=== PATIENT | male | born 1945 | race Caucasian/White ===

== ENCOUNTER 2017-06-24 06:00 | Outpatient (RCR) | payer MEDICARE, BC ==
[2017-02-18 08:45] VITALS: Ht 177.8 cm; Wt 80.7 kg
[~2017-06-24] VITALS: Ht 177.8 cm; Wt 80.7 kg
[~2017-06-24 06:00] MED LIST: ALBU8.5H IH; ALPR-1 PO; ANTI1CAP2 PO; ASP81; ASPI-1121 PO; B12 IM; CEFU250T11 PO; CEPH250C37 PO; CETI-169 PO; CHO4 PO; CHOL200021 PO; CHOL200074 PO; CHOL500026; CLO75; CLO75 PO; CLOP75TA PO; CYAN1000 IJ; CYC10 PO; DARB10SY IM; DIC10; DIC10 PO; DICY20TA70 PO; DILT120C18 PO; FAMO20TA28 PO; FERR-53 PO; FERR159T PO; FERR28TA2 PO; FURO40TA35 PO; FURO80TA70 PO; GUAI120L3 PO; HYDR-385 PO; HYDR-4309 PO; HYDR10TA20 PO; HYDR50TA35 PO; IBUP-1671 PO; INSU100I30 SUBQ; ISOS30TA54 PO; L-thyroxine; LANI SUBQ; LEVO-85 PO; LEVO25TA61 PO; LEVO750T27 PO; LOR10 PO; LOR5/325 PO; METANXPT; METANXPT PO; METH1TAB PO; MU-V1TAB29 PO; NIFE30TA92 PO; NOR5/325 PO; PEN400; PEN400 PO; PENT400T57 PO; PHEN200T32 PO; PRAV20TA66 PO; RAMI10CA72 PO; SIM10; SIM10 PO; SODI650T7 PO; TAMS0.4C25 PO; VALS160T20; VALS1TAB96 PO; VIT-7 PO; [UNRECOGNIZED DRUG - CODE]; [UNRECOGNIZED DRUG - CODE]; [UNRECOGNIZED DRUG - CODE] PO; [UNRECOGNIZED DRUG - CODE] PO
[2017-06-24] MEDS: DARBEPOETIN 100 MCG/0.5 ML SUBQ PRN (09:43)
[2017-06-24 09:44] VITALS: BP 159/63
[2017-07-09] MEDS ORDERED: MESA250C2 PO (10:41)
[2017-07-09] MEDS ORDERED: [UNRECOGNIZED DRUG - CODE] PO (10:41)
[2017-07-09] MEDS ORDERED: CAL25 PO (10:41)
[2017-07-09] MEDS ORDERED: FOLI-68 PO (10:41)
[2017-08-08] MEDS ORDERED: LANI SUBQ ×2 (05:35)
[2017-08-08] MEDS ORDERED: ONDA4TAB PO (06:40)
[2017-08-26] MEDS: DARBEPOETIN 100 MCG/0.5 ML SUBQ PRN (09:06)
[2017-08-26 09:07] VITALS: BP 138/54
[2017-09-11] MEDS ORDERED: INSU100V24 SQ (20:48)
[2017-09-16 08:38] VITALS: BP 146/94
[2017-09-16] MEDS: DARBEPOETIN 100 MCG/0.5 ML SUBQ PRN (08:45)
[2017-10-08] MEDS ORDERED: MULT1CAP59 PO (04:10)
[2017-10-08] MEDS ORDERED: FLUT16SP19 NS (04:10)
[2017-10-09] MEDS ORDERED: INSU100V24 SQ (08:40)
[2017-10-12] MEDS ORDERED: AZIT-18 PO (21:01)
[2017-10-12] MEDS ORDERED: ALBU8.5H IH (21:01)
[2017-10-12] MEDS ORDERED: PROM-110 PO (22:32)
[2017-10-12] MEDS ORDERED: OSE75 FT (22:32)
[2017-10-12] MEDS ORDERED: OXYC-865 PO (22:32)
[2017-10-21] MEDS: DARBEPOETIN 100 MCG/0.5 ML SUBQ PRN (08:24)
[2017-10-21 08:25] VITALS: BP 112/75
[2017-11-18] MEDS: DARBEPOETIN 100 MCG/0.5 ML SUBQ PRN (08:41)
[2017-11-18 08:42] VITALS: BP 150/63
[2017-12-23 08:00] VITALS: BP 149/61
[2017-12-23] MEDS: DARBEPOETIN 100 MCG/0.5 ML SUBQ PRN (08:00)
[2018-01-17] MEDS ORDERED: PENTA500PT PO (09:14)
[2018-01-25 09:26] VITALS: BP 148/63
[2018-01-25] MEDS: DARBEPOETIN 100 MCG/0.5 ML SUBQ PRN ×2 (09:34→09:37)
== END 2018-02-11 08:00 | disposition home or self-care (01) ==
LOC: DIAL CLIN 06:00
PROVIDERS: ATTEND Internal Medicine Nephrology
DX: I12.0 Hypertensive chronic kidney disease with stage 5 chronic kidney disease or end stage renal disease (principal); N18.4 Chronic kidney disease, stage 4 (severe); E11.21 Type 2 diabetes mellitus with diabetic nephropathy; Z87.448 Personal history of other diseases of urinary system; R80.9 Proteinuria, unspecified; R09.02 Hypoxemia; E87.2 Acidosis; D63.1 Anemia in chronic kidney disease; N25.81 Secondary hyperparathyroidism of renal origin; D51.0 Vitamin B12 deficiency anemia due to intrinsic factor deficiency; K50.90 Crohn's disease, unspecified, without complications; D72.829 Elevated white blood cell count, unspecified; E78.5 Hyperlipidemia, unspecified; E03.9 Hypothyroidism, unspecified; R60.0 Localized edema; E78.00 Pure hypercholesterolemia, unspecified; I25.119 Atherosclerotic heart disease of native coronary artery with unspecified angina pectoris; E11.22 Type 2 diabetes mellitus with diabetic chronic kidney disease
CPT/HCPCS: 36415; 82728; 83540; 83550; 96372; J0881

== ENCOUNTER → 2017-07-29 | Outpatient (CLI) | payer MEDICARE, BC ==
[2017-02-18 08:45] VITALS: BMI 24.5
[~2017-07-29] MED LIST changes: +CAL25 FT; -FERR-53 PO; +FERR325T14 PO; +FOLI-68 PO; +MESA250C2 PO; -PENT400T57 PO; +[UNRECOGNIZED DRUG - CODE] MC
[2017-07-29 11:09] LABS: PLATELET COUNT, AUTOMATED 466 K/uL (150-450)
== END ==
LOC: LAB 10:12
PROVIDERS: ATTEND Internal Medicine Nephrology
DX: E87.2 Acidosis (principal); R80.1 Persistent proteinuria, unspecified; E87.5 Hyperkalemia; E11.22 Type 2 diabetes mellitus with diabetic chronic kidney disease; N18.4 Chronic kidney disease, stage 4 (severe); I12.9 Hypertensive chronic kidney disease with stage 1 through stage 4 chronic kidney disease, or unspecified chronic kidney disease; D63.1 Anemia in chronic kidney disease
CPT/HCPCS: 82040; 82310; 82374; 82435; 82565; 82728; 82947; 83540; 83550; 83970; 84100; 84132; 84295; 84520; 85025

== ENCOUNTER → 2017-08-05 | Outpatient (CLI) | payer MEDICARE, BC ==
[2017-02-18 08:45] VITALS: BMI 24.5
[~2017-08-05] MED LIST changes: +FERR-53 PO; -FERR325T14 PO
== END ==
LOC: LAB 15:12
PROVIDERS: ATTEND Internal Medicine Nephrology
DX: N04.9 Nephrotic syndrome with unspecified morphologic changes (principal)
CPT/HCPCS: 36415; 83883; 84156; 86334; 86335

== ENCOUNTER 2017-08-08 03:59 | Emergency (ER) | payer MEDICARE, BC ==
[2017-02-18 08:45] VITALS: Wt 77.1 kg
--- NOTE | 2017-08-08 04:06 | ER Report ---
History and Physical Time Seen By MD: 04:01 HPI/ZULMA CHIEF COMPLAINT: Abdominal pain,?, Bowel obstruction HISTORY OF PRESENT ILLNESS: 71-year-old male presents ambulatory to the ER with sudden onset of abdominal pain in his lower abdomen at approximately 2 AM. Patient has a distant history of a bowel resection in 3 previous bowel obstructions. The last one was in January of last year. Prior to that he had one in April. Patient has extensive past medical history. Please see his records. There is a recent oncology note for details. His extensive history. Patient state that he had severe crampy lower abdominal pain typical of his bowel obstructions. Then he went to the restroom and had a large bowel movement , which she describes as plugging the toilet and extending above the surface of the water. Subsequent to that he's had some diarrhea a couple of times. He normally has chronic diarrhea secondary to his Crohn's disease. He is followed by GI. His diarrhea has lessened. Patient then began to have severe nausea and vomiting. He's had multiple episodes of vomiting. Patient describes this episode is different than his usual, bowel obstructions, which started out as a lot of crampy pain and then later develops into vomiting. He usually has no output from his bowels with a bowel obstruction. Patient states he had a recent blood draw with an elevated white blood cell count of 31,000. He states he normally runs about 24,000. He's been evaluated by nephrology for dialysis. He plans to see a surgeon for an AV fistula placement in the near future. He states he has nephrotic syndrome. Patient denies fever or chills. Patient denies dysuria, frequency or hematuria. Patient originally notes. His emesis was brown and now has turned to green bile color. Patient states he was recently down at [facility] for a pancreatic lesion biopsy which was reportedly benign per his report. REVIEW OF SYSTEMS: Respiratory: No cough, no dyspnea. Cardiovascular: No chest pain, no palpitations. Gastrointestinal: As above Musculoskeletal: No back pain. Allergies: Coded Allergies: codeine (Verified Allergy, Unknown, 08/08/17) morphine (Verified Adverse Reaction, Intermediate, NAUSEA/VOMITING, ) Iodinated Contrast- Oral and IV Dye (Verified Adverse Reaction, Mild, 02/17) Home Meds Active Scripts Ondansetron (ZOFRAN ODT) 4 Mg Tab.rapdis, 4 MG PO Q4-6H Y for NAUSEA/VOMITING, # 15 Prov:ALESHA GAMINO DO 08/08/17 [B12] No Conflict Check, 1000 MCG IM Monthly, #22 MCG 1 Refill Inject 1000mcg monthly Prov:CARLSATHISH J EMERGENCY SERVICE RESTORER-BC, ONC 04/06/16 Reported Medications Insulin Glargine (LANTUS) 100 Unit/Ml Soln, 12 UNIT SUBQ QPM, ML 08/08/17 Insulin Glargine (LANTUS) 100 Unit/Ml Soln, 28 UNIT SUBQ QAM, ML 08/08/17 Calcitriol (CALCITRIOL) 0.25 Mcg Cap, 0.25 MCG FT DAILY, CAP 07/09/17 Loperamide Hcl (LOPERAMIDE) 5 Gm Powder, 12 GM MC DAILY 07/09/17 Folic Acid (FOLIC ACID) 1 Mg Tablet, 1 MG PO QDAY, TAB 07/09/17 Mesalamine (PENTASA) 250 Mg Capsule.er, 500 MG PO BID 07/09/17 Sodium Bicarbonate (SODIUM BICARBONATE) 650 Mg Tablet, 1950 MG PO BID 05/22/16 Furosemide (LASIX) 40 Mg Tablet, 40 MG PO QDAY, TAB 10/15/15 Ferrous Sulfate, Dried (IRON) 159 Mg Tablet.er, 130 MG PO BID twice daily 06/22/15 Vit A,C & E/Lutein/Minerals (OCUVITE TABLET) 1 Each Tablet, 1 EACH PO DAILY 06/22/15 Pentoxifylline (PENTOXIFYLLINE) 400 Mg Tabsr, 400 MG PO BID 03/13/15 Hydralazine Hcl (HYDRALAZINE HCL) 50 Mg Tablet, 50 MG PO TID, TAB 03/13/15 Dicyclomine Hcl (DICYCLOMINE HCL) 20 Mg Tablet, 20 MG PO TID 01/23/15 Levothyroxine Sodium (LEVOTHYROXINE SODIUM) 25 Mcg Tablet, 25 MCG PO QDAY 07/09/13 Pravastatin Sodium (PRAVASTATIN SODIUM) 20 Mg Tablet, 20 MG PO QDAY 07/09/13 Diltiazem Hcl (DILTIAZEM 24HR CD) 120 Mg Cap.er.24h, 120 MG PO BID 07/09/13 Clopidogrel Bisulfate (CLOPIDOGREL) 75 Mg Tablet, 1 TAB PO QDAY, TAB TAKE ONE TABLET BY MOUTH EVERY DAY 07/09/13 Aspirin (Adult Aspirin) 81 Mg Tab.chew, 81 MG PO DAILY 03/22/07 Anagrelide Hcl (Agrylin) 0.5 Mg Capsule, 0.5 MG PO DAILY 03/22/07 Discontinued Reported Medications Darbepoetin [place] in Polysorbat (Aranesp) 10 Mcg/0.4 Ml Syringe, 1 EA IM EVERYOTHERMONTH 05/11/17 Insulin Glargine (LANTUS) 100 Unit/Ml Soln, 8 UNIT SUBQ QPM 06/22/15 Insulin Glargine (LANTUS) 100 Unit/Ml Soln, 25 UNITS SUBQ QAM 03/02/15 Past Medical/Surgical History PAST MEDICAL HISTORY 1. Essential thrombocytosis diagnosed in 1990. 2. Crohn disease diagnosed in 2001. 3. High PSA with negative biopsies in 2003. 4. TIA in 2002. 5. CVA with multiple infarcts on MRI in 2001. 6. Anemia since 2000. 7. Duodenal ulcer in 1989. 8. Diabetes mellitus in 1969. 9. Hyperlipidemia. 10. Hypertension. PAST SURGICAL HISTORY 1. 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 2. Left knee ACL repair in 1976. Hx Smoking: No (CHEWS 1 CAN Q 3 DAYS FOR 40 YEARS. SMOKED AGE 18 TO 23) Smoking Status: Never Smoker Exposure to Second Hand Smoke?: No Hx Substance Use Disorder: No Hx Alcohol Use: Yes Constitutional Vital Sign - Last 24 Hours 08/08/17 08/08/17 08/08/17 08/08/17 04:03 04:07 04:14 04:19 Temp 97.8 Pulse 88 86 82 Resp 24 B/P (MAP) 183/82 183/82 (115) Pulse Ox 96 99 99 O2 Delivery Room Air 08/08/17 08/08/17 08/08/17 08/08/17 04:24 04:40 04:44 04:49 Pulse 78 77 72 B/P (MAP) 176/72 (106) Pulse Ox 100 99 100 08/08/17 08/08/17 08/08/17 08/08/17 04:54 05:00 05:04 05:09 Pulse 71 73 B/P (MAP) 138/96 (110) Pulse Ox 100 91 100 08/08/17 08/08/17 08/08/17 08/08/17 05:14 05:19 05:24 05:29 Pulse 76 77 72 70 Pulse Ox 100 98 100 100 08/08/17 08/08/17 08/08/17 08/08/17 05:34 05:40 05:45 06:05 Pulse 76 73 74 Resp 22 B/P (MAP) 171/79 (109) Pulse Ox 100 100 99 08/08/17 08/08/17 08/08/17 08/08/17 06:10 06:12 06:15 06:20 Pulse 75 68 72 Resp 18 23 16 B/P (MAP) 178/78 (111) 173/71 (105) Pulse Ox 100 100 98 08/08/17 08/08/17 08/08/17 08/08/17 06:25 06:30 06:35 06:40 Pulse 77 75 74 Resp 16 21 Pulse Ox 98 100 100 08/08/17 08/08/17 06:45 06:46 Pulse 73 Resp 19 B/P (MAP) 157/117 (130) Pulse Ox 100 Physical Exam General Appearance: The patient is alert, has no immediate need for airway protection and no current signs of toxicity. Vital signs stable, afebrile, blood pressure elevated HEENT: Pupils equal and round no injection. Oropharynx with odor of emesis, no erythema Respiratory: Chest is non tender, lungs are clear to auscultation. Cardiac: regular rate and rhythm Gastrointestinal: Abdomen is soft and non tender, no masses, bowel sounds normal. Musculoskeletal: Neck: Neck is supple and non tender. Extremities have full range of motion and are non tender. Skin: No rashes or lesions. DIFFERENTIAL DIAGNOSIS: After history and physical exam differential diagnosis was considered for abdominal pain including but not limited to appendicitis, cholecystitis, gastritis, pancreatitis, bowel obstruction and urinary tract infection. Medical Decision Making Data Points Result Diagram: 08/08/17 0418 08/08/17 0418 Laboratory Hematology Test 08/08/17 04:18 08/08/17 06:54 Red Blood Count 4.74 M/uL (4.00-5.60) Mean Corpuscular Volume 83.1 fL (80.0-96.0) Mean Corpuscular Hemoglobin 27.4 pg (26.0-33.0) Mean Corpuscular Hemoglobin Concent 33.0 g/dL (32.0-36.0) Red Cell Distribution Width 19.9 % (11.5-14.5) Mean Platelet Volume 8.1 fL (7.2-11.1) Neutrophils (%) (Auto) 84.6 % (39.4-72.5) Lymphocytes (%) (Auto) 7.4 % (17.6-49.6) Monocytes (%) (Auto) 4.1 % (4.1-12.4) Eosinophils (%) (Auto) 3.2 % (0.4-6.7) Basophils (%) (Auto) 0.7 % (0.3-1.4) Nucleated RBC Relative Count (auto) 0.1 /100WBC Neutrophils # (Auto) 18.4 K/uL (2.0-7.4) Lymphocytes # (Auto) 1.6 K/uL (1.3-3.6) Monocytes # (Auto) 0.9 K/uL (0.3-1.0) Eosinophils # (Auto) 0.7 K/uL (0.0-0.5) Basophils # (Auto) 0.1 K/uL (0.0-0.1) Nucleated RBC Absolute Count (auto) 0.03 K/uL Peripheral Blood Smear Yes Y/N Sodium Level 142 mmol/L (137-145) Potassium Level 3.9 mmol/L (3.5-5.0) Chloride Level 103 mmol/L (98-107) Carbon Dioxide Level 22 mmol/L (22-30) Blood Urea Nitrogen 55 mg/dl (9-21) Creatinine 4.20 mg/dl (0.66-1.25) Glomerular Filtration Rate Calc 14.1 Random Glucose 91 mg/dl (75-110) Lactate 2.2 mmol/L (0.7-2.1) Calcium Level 9.5 mg/dl (8.4-10.2) Total Bilirubin 0.5 mg/dl (0.2-1.3) Aspartate Amino Transf (AST/SGOT) 22 U/L (0-35) Alanine Aminotransferase (ALT/SGPT) 34 U/L (0-56) Alkaline Phosphatase 182 U/L (0-126) Total Protein 6.8 gm/dl (6.3-8.2) Albumin 4.0 g/dl (3.5-5.0) Amylase Level 86 U/L (0-110) Lipase 146 U/L (23-300) Urine Color Yellow Urine Clarity Clear Urine pH 7.0 pH (4.8-9.5) Urine Specific [place] 1.018 Urine Protein 500 mg/dL (NEGATIVE) Urine Glucose (UA) 150 mg/dL (NEGATIVE) Urine Ketones Negative mg/dL (NEGATIVE) Urine Blood Negative (NEGATIVE) Urine Nitrite Negative (NEGATIVE) Urine Bilirubin Negative (NEGATIVE) Urine Urobilinogen Negative mg/dL (0.2-1.9) Urine Leukocyte Esterase Negative (NEGATIVE) Urine RBC None /HPF (0-2/HPF) Urine WBC None /HPF (0-5/HPF) Urine Squamous Epithelial Cells None /LPF (</=FEW) Urine Bacteria Few /HPF (NONE-FEW) Urine Mucus None /HPF (NONE-FEW) Chemistry Test 08/08/17 04:18 08/08/17 06:54 White Blood Count 21.8 k/uL (4.5-11.0) Red Blood Count 4.74 M/uL (4.00-5.60) Hemoglobin 13.0 g/dL (14.0-18.0) Hematocrit 39.4 % (42.0-52.0) Mean Corpuscular Volume 83.1 fL (80.0-96.0) Mean Corpuscular Hemoglobin 27.4 pg (26.0-33.0) Mean Corpuscular Hemoglobin Concent 33.0 g/dL (32.0-36.0) Red Cell Distribution Width 19.9 % (11.5-14.5) Platelet Count 500 K/uL (150-450) Mean Platelet Volume 8.1 fL (7.2-11.1) Neutrophils (%) (Auto) 84.6 % (39.4-72.5) Lymphocytes (%) (Auto) 7.4 % (17.6-49.6) Monocytes (%) (Auto) 4.1 % (4.1-12.4) Eosinophils (%) (Auto) 3.2 % (0.4-6.7) Basophils (%) (Auto) 0.7 % (0.3-1.4) Nucleated RBC Relative Count (auto) 0.1 /100WBC Neutrophils # (Auto) 18.4 K/uL (2.0-7.4) Lymphocytes # (Auto) 1.6 K/uL (1.3-3.6) Monocytes # (Auto) 0.9 K/uL (0.3-1.0) Eosinophils # (Auto) 0.7 K/uL (0.0-0.5) Basophils # (Auto) 0.1 K/uL (0.0-0.1) Nucleated RBC Absolute Count (auto) 0.03 K/uL Peripheral Blood Smear Yes Y/N Glomerular Filtration Rate Calc 14.1 Lactate 2.2 mmol/L (0.7-2.1) Calcium Level 9.5 mg/dl (8.4-10.2) Total Bilirubin 0.5 mg/dl (0.2-1.3) Aspartate Amino Transf (AST/SGOT) 22 U/L (0-35) Alanine Aminotransferase (ALT/SGPT) 34 U/L (0-56) Alkaline Phosphatase 182 U/L (0-126) Total Protein 6.8 gm/dl (6.3-8.2) Albumin 4.0 g/dl (3.5-5.0) Amylase Level 86 U/L (0-110) Lipase 146 U/L (23-300) Urine Color Yellow Urine Clarity Clear Urine pH 7.0 pH (4.8-9.5) Urine Specific [place] 1.018 Urine Protein 500 mg/dL (NEGATIVE) Urine Glucose (UA) 150 mg/dL (NEGATIVE) Urine Ketones Negative mg/dL (NEGATIVE) Urine Blood Negative (NEGATIVE) Urine Nitrite Negative (NEGATIVE) Urine Bilirubin Negative (NEGATIVE) Urine Urobilinogen Negative mg/dL (0.2-1.9) Urine Leukocyte Esterase Negative (NEGATIVE) Urine RBC None /HPF (0-2/HPF) Urine WBC None /HPF (0-5/HPF) Urine Squamous Epithelial Cells None /LPF (</=FEW) Urine Bacteria Few /HPF (NONE-FEW) Urine Mucus None /HPF (NONE-FEW) Urinalysis Test 08/08/17 06:54 Urine Color Yellow Urine Clarity Clear Urine pH 7.0 pH (4.8-9.5) Urine Specific [place] 1.018 Urine Protein 500 mg/dL (NEGATIVE) Urine Glucose (UA) 150 mg/dL (NEGATIVE) Urine Ketones Negative mg/dL (NEGATIVE) Urine Blood Negative (NEGATIVE) Urine Nitrite Negative (NEGATIVE) Urine Bilirubin Negative (NEGATIVE) Urine Urobilinogen Negative mg/dL (0.2-1.9) Urine Leukocyte Esterase Negative (NEGATIVE) Urine RBC None /HPF (0-2/HPF) Urine WBC None /HPF (0-5/HPF) Urine Squamous Epithelial Cells None /LPF (</=FEW) Urine Bacteria Few /HPF (NONE-FEW) Urine Mucus None /HPF (NONE-FEW) EKG/Imaging Imaging X-ray: Three-way abdomen was obtained. I viewed the images myself on the PACS system. My interpretation of the images is: There are diffuse air-fluid levels and a loop of dilated small bowel in the left lower quadrant suspicious for bowel obstruction, question antonio could be ileus. The radiologist interpretation had no clinically significant variation from this interpretation. Results: CT scan of the abdomen and pelvis without contrast was obtained. The results of the study are EXAMINATION: CT Abdomen and Pelvis Without Contrast 08/08/2017 5:37 AM HISTORY: ?sbo on 3 way, Hx SBO x 3 TECHNIQUE: Spiral scan was through the abdomen and pelvis without contrast. One of the following dose optimization techniques was utilized in the performance of this exam: Automated exposure control; adjustment of the mA and/ or kV according to the patient's size; or use of an iterative reconstruction technique. Specific details can be referenced in the facility's radiology CT exam operational policy. COMPARISON STUDIES: Plain films today. CT 8 05/28/2017. FINDINGS: Liver / biliary: Cholecystolithiasis. Pancreas: Rounded 1.2 cm low-density lung top of the uncinate process and the pancreas. Spleen: Incidental small accessory splenule below the hilus. Adrenal glands: negative Kidneys / retroperitoneum: Small nonobstructive stones bilaterally. Pelvic structures: Prostate measures 4.8 x 4.9 x 5.6 cm and presses up into the bladder floor. Bowel / peritoneum / mesenteries: Fluid within small bowel and the colon. Jejunal loops measure up to about 3.2 cm, over 4 cm on the plain film earlier this morning. Ileum has a smaller caliber but there is no clear focal obstructive transition. Sutures along the cecal tip. Colon is not distended but does contain fluid and some semisolid fecal material throughout its length. Diverticulosis of the distal colon. No ascites. No free air. Vessels: Atherosclerosis. Musculoskeletal / Body wall: Degenerative changes in the spine. Lymph node assessment: negative Lower chest: negative IMPRESSION: 1. There is fluid throughout small bowel and the colon which may indicate a gastroenteritis pattern. Degenerative is mildly more prominent within the ileum but without a clear obstructive transition. Caliber of jejunal loops has decreased mildly from the plain film earlier today. 2. Cholecystolithiasis. 3. Nonobstructive intrarenal nephrolithiasis. 4. Rounded low-density focus in the pancreas again shown, incompletely assessed without contrast. MR would assess this in best detail. The study was read by the radiologist. I viewed the images myself on the PACS system. ED Course/Re-evaluation Clinical Indication for ER IV: Hydration, IV Access ED Course Patient was admitted to an examination room. H&P was done. The differential diagnosis was considered. On clinical examination. Patient has vomiting and diarrhea. He has a benign nonsurgical abdomen with increased bowel sounds. Diagnostic studies are undertaken. His white blood cell count is 21,000 back in his baseline with his myeloproliferative disorder. He is treated with IV fluid and Zofran. He continues to have pretty frequent diarrhea. Patient. Diagnostic x-rays show air-fluid levels suspicious for bowel obstruction versus ileus. Patient has history of 3 previous bowel infections. We will proceed to CT scan to rule out bowel obstruction. A CT scan of the abdomen and pelvis was performed which shows no evidence of bowel obstruction consistent with enteritis. Patient's results are discussed with him. He would like to go home. He is given Zofran for nausea. He has chronic diarrhea and is managed by GI. He is advised clear liquid diet for 24-48 hours. Decision to Disposition Date: Aug 08, 2017 Decision to Disposition Time: 05:52 Depart Departure Latest Vital Signs Vital Signs Date Time Temp Pulse Resp B/P (MAP) Pulse Ox O2 Delivery O2 Flow Rate FiO2 08/08/17 06:46 157/117 (130) 08/08/17 06:45 73 19 100 08/08/17 04:03 97.8 Room Air Impression: Primary Impression: Gastroenteritis Additional Impressions: Diarrhea Abdominal pain Chronic renal failure Condition: Improved Disposition: HOME OR SELF-CARE Referrals: MEENAKSHI JENKINSP (PCP) New Scripts Ondansetron (ZOFRAN ODT) 4 Mg Tab.rapdis 4 MG PO Q4-6H Y for NAUSEA/VOMITING, #15 Prov: ALESHA GAMINO DO 08/08/17 Patient Instructions: Acute Diarrhea (ED), Clear Liquid Diet (ED), Gastroenteritis (ED) Additional Instructions: Follow clear liquid diet for 24-48 hours until your diarrhea improves, then advance through the brat diet, bananas, rice, applesauce, toast Follow-up with your GI specialist if unimproved in 3-5 days Problem Qualifiers Additional Impressions: Diarrhea Diarrhea type: unspecified type Qualified Codes: R19.7 - Diarrhea, unspecified Abdominal pain Abdominal location: lower abdomen, unspecified Qualified Codes: R10.30 - Lower abdominal pain, unspecified Chronic renal failure Chronic kidney disease stage: unspecified stage Qualified Codes: N18.9 - Chronic kidney disease, unspecified ALESHA GAMINO DO Aug 08, 2017 04:06
[2017-08-08] MEDS ORDERED: NS(*) 0.9% 1000 ML BAG 1,000 ML IV ONE (04:08)
[2017-08-08] MEDS ORDERED: ONDANSETRON 4 MG/2 ML VIAL IVP ONE (04:10)
[2017-08-08 04:33] LABS: PLATELET COUNT, AUTOMATED 500 K/uL (150-450)
--- NOTE | 2017-08-08 05:07 | RADIOLOGY IMAGING REPORT ---
FACILITY: [facility] - [place] PATIENT NAME: Wei Osman : 1945 MR: [id number] V: [id number] EXAM DATE: ORDERING PHYSICIAN: ALESHA GAMINO TECHNOLOGIST: Location: Patient: Wei Osman : 1945 Visit/Account:[id number] Date of Sevice: 08/08/2017 ACUTE ABDOMEN SERIES 3 VIEW HISTORY: Abdominal pain, vomiting, and diarrhea. COMPARISON: CT 05/28/2017 and studies dating to 03/30/2007. TECHNIQUE: PA upright view of the chest, AP supine and AP upright views of the abdomen. Chest: The lungs are clear. There is stable elevation of the right hemidiaphragm. The cardiac and med iastinal silhouettes are within normal limits. Bones and soft tissues are unremarkable. Abdomen: Distribution of bowel gas is normal. There are numerous air-fluid levels and there are mildl y dilated small bowel loops in the left side of the abdomen. There are surgical sutures in the right lower quadrant. No free air. There is mild degenerative change of the spine. There are pelvic phlebol iths. IMPRESSION: 1. No acute cardiopulmonary process. 2. There are dilated small bowel loops and there are scattered air-fluid levels. Findings raise tanner rn for small bowel obstruction, although enteritis could cause a similar appearance. These findings were discussed by phone with ALESHA GAMINO on 08/08/2017 5:02 AM. Report Dictated By: Juanita Vasquez at 08/08/2017 4:58 AM Report E-Signed By: Juanita Vasquez at 08/08/2017 5:03 AM WSN:[id number]
[2017-08-08] MEDS ORDERED: LANI SUBQ ×2 (05:35)
--- NOTE | 2017-08-08 06:31 | RADIOLOGY IMAGING REPORT ---
FACILITY: [facility] PATIENT NAME: Wei Osman : 1945 MR: [id number] V: [id number] EXAM DATE: ORDERING PHYSICIAN: ALESHA GAMINO TECHNOLOGIST: Location: [facility] - [place] Patient: Wei Osman : 1945 Visit/Account:[id number] Date of Sevice: 08/08/2017 EXAMINATION: CT Abdomen and Pelvis Without Contrast 08/08/2017 5:37 AM HISTORY: ?sbo on 3 way, Hx SBO x 3 TECHNIQUE: Spiral scan was through the abdomen and pelvis without contrast. One of the following dose optimization techniques was utilized in the performance of this exam: Autom ated exposure control; adjustment of the mA and/or kV according to the patient's size; or use of an i terative reconstruction technique. Specific details can be referenced in the facility's radiology C T exam operational policy. COMPARISON STUDIES: Plain films today. CT 8 05/28/2017. FINDINGS: Liver / biliary: Cholecystolithiasis. Pancreas: Rounded 1.2 cm low-density lung top of the uncinate process and the pancreas. Spleen: Incidental small accessory splenule below the hilus. Adrenal glands: negative Kidneys / retroperitoneum: Small nonobstructive stones bilaterally. Pelvic structures: Prostate measures 4.8 x 4.9 x 5.6 cm and presses up into the bladder floor. Bowel / peritoneum / mesenteries: Fluid within small bowel and the colon. Jejunal loops measure up to about 3.2 cm, over 4 cm on the plain film earlier this morning. Ileum has a smaller caliber but ther e is no clear focal obstructive transition. Sutures along the cecal tip. Colon is not distended but d oes contain fluid and some semisolid fecal material throughout its length. Diverticulosis of the dist al colon. No ascites. No free air. Vessels: Atherosclerosis. Musculoskeletal / Body wall: Degenerative changes in the spine. Lymph node assessment: negative Lower chest: negative IMPRESSION: 1. There is fluid throughout small bowel and the colon which may indicate a gastroenteritis pattern. Degenerative is mildly more prominent within the ileum but without a clear obstructive transition. Ca liber of jejunal loops has decreased mildly from the plain film earlier today. 2. Cholecystolithiasis. 3. Nonobstructive intrarenal nephrolithiasis. 4. Rounded low-density focus in the pancreas again shown, incompletely assessed without contrast. MR would assess this in best detail. Report Dictated By: Nikita Guardado MD at 08/08/2017 6:16 AM Report E-Signed By: Nikita Guardado MD at 08/08/2017 6:26 AM WSN:[id number]
[2017-08-08] MEDS ORDERED: ONDA4TAB PO (06:40)
[2017-08-08] MEDS ORDERED: ONDANSETRON 4 MG ODT TH SL ONE (06:45)
[2017-08-08 06:46] VITALS: BP 157/117
== END 2017-08-08 06:57 | disposition home or self-care (01) ==
LOC: ER 04:26
DX: K52.9 Noninfective gastroenteritis and colitis, unspecified (principal); N18.9 Chronic kidney disease, unspecified
CPT/HCPCS: 74022; 74176; 81001; 82150; 83605; 83690; 85025; 96361; 96374; 99284; J2405; J7030; Q0162; 82040; 82247; 82310; 82374; 82435; 82565; 82947; 84075; 84132; 84155; 84295; 84450; 84460; 84520; S0119

== ENCOUNTER → 2017-08-24 | Outpatient (CLI) | payer MEDICARE, BC ==
[2017-02-18 08:45] VITALS: BMI 24.5
[~2017-08-24] MED LIST changes: +ONDA4TAB PO
== END ==
LOC: LAB 13:02
PROVIDERS: ATTEND Internal Medicine Nephrology
DX: N18.9 Chronic kidney disease, unspecified (principal)
CPT/HCPCS: 36415; 85027

== ENCOUNTER 2017-09-11 18:54 | Emergency (ER) | payer MEDICARE, BC ==
[2017-02-18 08:45] VITALS: Ht 177.8 cm; Wt 79.4 kg
[~2017-09-11] VITALS: Ht 177.8 cm; Wt 79.4 kg
--- NOTE | 2017-09-11 19:40 | ER Report ---
History and Physical Time Seen By MD: 19:10 Hx. of Stated Complaint: PT HAD FISULA DONE ON WEDNESDAY. PT REPORTS THAT BLOOD SUGARS HAVE BEEN VERY HIGH SINCE THEN. NO CHANGES IN MEDICATIONS OR DIET. HPI/ROS CHIEF COMPLAINT: Elevated blood sugars HISTORY OF PRESENT ILLNESS: Patient is a 71-year-old male accompanied by his , who presents the ED with complaint of elevated blood sugars for the past 3 days. 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 He states that he is normally just on long-acting insulin twice a day and has been fairly well- controlled with this but now has noted intermittent elevation of his blood sugars. He states that after surgery initially had trouble urinating but states that now he is urinating normally and denies any dysuria or hematuria. He has not noted any fever. This is mild cough that has not been productive. He denies any chest pain or shortness of breath. Patient states that he has chronic thrombocytosis and leukocytosis and states that they have not found a reason why he has this but is and it for almost 20 years. He states that he has chronic abdominal pain but states that he has no worsening abdominal pain at this point. He has had multiple bowel obstructions in the past but states that he has been having normal bowel movements at this time. REVIEW OF SYSTEMS: Constitutional: No fever, no chills. Eyes: No discharge. ENT: No sore throat. Cardiovascular: No chest pain, no palpitations. Respiratory: See history of present illness. Gastrointestinal: See history of present illness. Genitourinary: See history of present illness. Musculoskeletal: No back pain. Skin: No rashes. Neurological: No headache. Allergies: Coded Allergies: codeine (Verified Allergy, Unknown, 09/11/17) Iodinated Contrast- Oral and IV Dye (Verified Adverse Reaction, Mild, 09/11) Home Meds Active Scripts Ondansetron (ZOFRAN ODT) 4 Mg Tab.rapdis, 4 MG PO Q4-6H Y for NAUSEA/VOMITING, # 15 Prov:ALESHA GAMINO DO 08/08/17 [B12] No Conflict Check, 1000 MCG IM Monthly, #22 MCG 1 Refill Inject 1000mcg monthly Prov:SATHISH HENRY [employer]PERVIS[employer], ONC 04/06/16 Reported Medications Insulin Glargine (LANTUS) 100 Unit/Ml Soln, 12 UNIT SUBQ QPM, ML 08/08/17 Insulin Glargine (LANTUS) 100 Unit/Ml Soln, 28 UNIT SUBQ QAM, ML 08/08/17 Calcitriol (CALCITRIOL) 0.25 Mcg Cap, 0.25 MCG FT DAILY, CAP 07/09/17 Loperamide Hcl (LOPERAMIDE) 5 Gm Powder, 12 GM MC DAILY 07/09/17 Folic Acid (FOLIC ACID) 1 Mg Tablet, 1 MG PO QDAY, TAB 07/09/17 Mesalamine (PENTASA) 250 Mg Capsule.er, 500 MG PO BID 07/09/17 Sodium Bicarbonate (SODIUM BICARBONATE) 650 Mg Tablet, 1950 MG PO BID 05/22/16 Furosemide (LASIX) 40 Mg Tablet, 40 MG PO QDAY, TAB 10/15/15 Ferrous Sulfate, Dried (IRON) 159 Mg Tablet.er, 130 MG PO BID twice daily 06/22/15 Vit A,C & E/Lutein/Minerals (OCUVITE TABLET) 1 Each Tablet, 1 EACH PO DAILY 06/22/15 Pentoxifylline (PENTOXIFYLLINE) 400 Mg Tabsr, 400 MG PO BID 03/13/15 Hydralazine Hcl (HYDRALAZINE HCL) 50 Mg Tablet, 50 MG PO TID, TAB 03/13/15 Dicyclomine Hcl (DICYCLOMINE HCL) 20 Mg Tablet, 20 MG PO TID 01/23/15 Levothyroxine Sodium (LEVOTHYROXINE SODIUM) 25 Mcg Tablet, 25 MCG PO QDAY 07/09/13 Pravastatin Sodium (PRAVASTATIN SODIUM) 20 Mg Tablet, 20 MG PO QDAY 07/09/13 Diltiazem Hcl (DILTIAZEM 24HR CD) 120 Mg Cap.er.24h, 120 MG PO BID 07/09/13 Clopidogrel Bisulfate (CLOPIDOGREL) 75 Mg Tablet, 1 TAB PO QDAY, TAB TAKE ONE TABLET BY MOUTH EVERY DAY 07/09/13 Aspirin (Adult Aspirin) 81 Mg Tab.chew, 81 MG PO DAILY 03/22/07 Anagrelide Hcl (Agrylin) 0.5 Mg Capsule, 0.5 MG PO DAILY 03/22/07 Reviewed Nurses Notes: Yes Old Medical Records Reviewed: Yes Hx Smoking: No (CHEWS 1 CAN Q 3 DAYS FOR 40 YEARS. SMOKED AGE 18 TO 23) Smoking Status: Never Smoker Exposure to Second Hand Smoke?: No Hx Substance Use Disorder: No Hx Alcohol Use: Yes Constitutional Vital Sign - Last 24 Hours 09/11/17 09/11/17 19:01 20:09 Temp 98.6 Pulse 81 79 Resp 14 14 B/P (MAP) 172/69 183/57 (99) Pulse Ox 96 92 O2 Delivery Room Air Room Air Physical Exam General Appearance: The patient is alert, has no immediate need for airway protection and no signs of toxicity. Patient appears to be no acute distress. Eyes: Pupils equal and round no pallor or injection. ENT, Mouth: Mucous membranes are moist. Respiratory: There are no retractions, lungs are clear to auscultation. Cardiovascular: Regular rate and rhythm. Gastrointestinal: There is slight left lower quadrant and suprapubic area tenderness with palpation. No rebound or guarding is present. Normal bowel sounds in all 4 quadrants. Neurological: Cranial nerves II-12 intact. Skin: Warm and dry, no rashes. Musculoskeletal: Neck is supple non tender. Extremities are nontender, nonswollen and have full range of motion. DIFFERENTIAL DIAGNOSIS: After history and physical exam differential diagnosis was considered for elevated blood sugar including poorly controlled diabetes, stress-induced, infection. Medical Decision Making Data Points Result Diagram: 09/11/17191309/11/171913 Laboratory Hematology Test 09/11/17 19:08 09/11/17 19:14 09/11/17 19:55 Whole Blood Glucose 338 mg/DL (75-110) Red Blood Count 3.85 M/uL (4.00-5.60) Mean Corpuscular Volume 85.8 fL (80.0-96.0) Mean Corpuscular Hemoglobin 27.6 pg (26.0-33.0) Mean Corpuscular Hemoglobin Concent 32.2 g/dL (32.0-36.0) Red Cell Distribution Width 19.4 % (11.5-14.5) Mean Platelet Volume 9.3 fL (7.2-11.1) Neutrophils (%) (Auto) 90.4 % (39.4-72.5) Lymphocytes (%) (Auto) 4.8 % (17.6-49.6) Monocytes (%) (Auto) 3.0 % (4.1-12.4) Eosinophils (%) (Auto) 1.3 % (0.4-6.7) Basophils (%) (Auto) 0.5 % (0.3-1.4) Nucleated RBC Relative Count (auto) 0.0 /100WBC Neutrophils # (Auto) 20.7 K/uL (2.0-7.4) Lymphocytes # (Auto) 1.1 K/uL (1.3-3.6) Monocytes # (Auto) 0.7 K/uL (0.3-1.0) Eosinophils # (Auto) 0.3 K/uL (0.0-0.5) Basophils # (Auto) 0.1 K/uL (0.0-0.1) Nucleated RBC Absolute Count (auto) 0.00 K/uL Peripheral Blood Smear Yes Y/N Sodium Level 134 mmol/L (137-145) Potassium Level 4.0 mmol/L (3.5-5.0) Chloride Level 98 mmol/L (98-107) Carbon Dioxide Level 21 mmol/L (22-30) Blood Urea Nitrogen 74 mg/dl (9-21) Creatinine 5.30 mg/dl (0.66-1.25) Glomerular Filtration Rate Calc 10.8 Random Glucose 308 mg/dl (75-110) Calcium Level 8.3 mg/dl (8.4-10.2) Total Bilirubin 0.5 mg/dl (0.2-1.3) Aspartate Amino Transf (AST/SGOT) 23 U/L (0-35) Alanine Aminotransferase (ALT/SGPT) 26 U/L (0-56) Alkaline Phosphatase 124 U/L (0-126) Total Protein 6.1 gm/dl (6.3-8.2) Albumin 3.3 g/dl (3.5-5.0) Lipase 276 U/L (23-300) Urine Color Yellow Urine Clarity Clear Urine pH 6.0 pH (4.8-9.5) Urine Specific [place] 1.013 Urine Protein 100 mg/dL (NEGATIVE) Urine Glucose (UA) 500 mg/dL (NEGATIVE) Urine Ketones Negative mg/dL (NEGATIVE) Urine Blood Negative (NEGATIVE) Urine Nitrite Negative (NEGATIVE) Urine Bilirubin Negative (NEGATIVE) Urine Urobilinogen Negative mg/dL (0.2-1.9) Urine Leukocyte Esterase Negative (NEGATIVE) Urine RBC <1 /HPF (0-2/HPF) Urine WBC <1 /HPF (0-5/HPF) Urine Squamous Epithelial Cells None /LPF (</=FEW) Urine Bacteria Negative /HPF (NONE-FEW) Urine Mucus None /HPF (NONE-FEW) Chemistry Test 09/11/17 19:08 09/11/17 19:14 09/11/17 19:55 Whole Blood Glucose 338 mg/DL (75-110) White Blood Count 22.9 k/uL (4.5-11.0) Red Blood Count 3.85 M/uL (4.00-5.60) Hemoglobin 10.6 g/dL (14.0-18.0) Hematocrit 33.0 % (42.0-52.0) Mean Corpuscular Volume 85.8 fL (80.0-96.0) Mean Corpuscular Hemoglobin 27.6 pg (26.0-33.0) Mean Corpuscular Hemoglobin Concent 32.2 g/dL (32.0-36.0) Red Cell Distribution Width 19.4 % (11.5-14.5) Platelet Count 301 K/uL (150-450) Mean Platelet Volume 9.3 fL (7.2-11.1) Neutrophils (%) (Auto) 90.4 % (39.4-72.5) Lymphocytes (%) (Auto) 4.8 % (17.6-49.6) Monocytes (%) (Auto) 3.0 % (4.1-12.4) Eosinophils (%) (Auto) 1.3 % (0.4-6.7) Basophils (%) (Auto) 0.5 % (0.3-1.4) Nucleated RBC Relative Count (auto) 0.0 /100WBC Neutrophils # (Auto) 20.7 K/uL (2.0-7.4) Lymphocytes # (Auto) 1.1 K/uL (1.3-3.6) Monocytes # (Auto) 0.7 K/uL (0.3-1.0) Eosinophils # (Auto) 0.3 K/uL (0.0-0.5) Basophils # (Auto) 0.1 K/uL (0.0-0.1) Nucleated RBC Absolute Count (auto) 0.00 K/uL Peripheral Blood Smear Yes Y/N Glomerular Filtration Rate Calc 10.8 Calcium Level 8.3 mg/dl (8.4-10.2) Total Bilirubin 0.5 mg/dl (0.2-1.3) Aspartate Amino Transf (AST/SGOT) 23 U/L (0-35) Alanine Aminotransferase (ALT/SGPT) 26 U/L (0-56) Alkaline Phosphatase 124 U/L (0-126) Total Protein 6.1 gm/dl (6.3-8.2) Albumin 3.3 g/dl (3.5-5.0) Lipase 276 U/L (23-300) Urine Color Yellow Urine Clarity Clear Urine pH 6.0 pH (4.8-9.5) Urine Specific [place] 1.013 Urine Protein 100 mg/dL (NEGATIVE) Urine Glucose (UA) 500 mg/dL (NEGATIVE) Urine Ketones Negative mg/dL (NEGATIVE) Urine Blood Negative (NEGATIVE) Urine Nitrite Negative (NEGATIVE) Urine Bilirubin Negative (NEGATIVE) Urine Urobilinogen Negative mg/dL (0.2-1.9) Urine Leukocyte Esterase Negative (NEGATIVE) Urine RBC <1 /HPF (0-2/HPF) Urine WBC <1 /HPF (0-5/HPF) Urine Squamous Epithelial Cells None /LPF (</=FEW) Urine Bacteria Negative /HPF (NONE-FEW) Urine Mucus None /HPF (NONE-FEW) Urinalysis Test 09/11/17 19:55 Urine Color Yellow Urine Clarity Clear Urine pH 6.0 pH (4.8-9.5) Urine Specific [place] 1.013 Urine Protein 100 mg/dL (NEGATIVE) Urine Glucose (UA) 500 mg/dL (NEGATIVE) Urine Ketones Negative mg/dL (NEGATIVE) Urine Blood Negative (NEGATIVE) Urine Nitrite Negative (NEGATIVE) Urine Bilirubin Negative (NEGATIVE) Urine Urobilinogen Negative mg/dL (0.2-1.9) Urine Leukocyte Esterase Negative (NEGATIVE) Urine RBC <1 /HPF (0-2/HPF) Urine WBC <1 /HPF (0-5/HPF) Urine Squamous Epithelial Cells None /LPF (</=FEW) Urine Bacteria Negative /HPF (NONE-FEW) Urine Mucus None /HPF (NONE-FEW) ED Course/Re-evaluation ED Course Will obtain labs. 09/11/2017 8:27:50 pm - discussed all labs with patient. Does have some leukocytosis which appears to be at his normal levels and baseline for him. He has some mild anemia which in and is at his baseline. His creatinine is slightly higher than previous at 5.3 but nothing too abnormal. His blood glucose does appear to be getting lower from when he initially came in. He does have some short acting insulin that was prescribed for him but he has not picked this up. Advised them to pick this up and uses to help control his blood sugars. He should follow up with his primary care provider in 2 days as scheduled. Decision to Disposition Date: Sep 11, 2017 Decision to Disposition Time: 20:29 Depart Departure Latest Vital Signs Vital Signs Date Time Temp Pulse Resp B/P (MAP) Pulse Ox O2 Delivery O2 Flow Rate FiO2 09/11/17 20:09 79 14 183/57 (99) 92 Room Air 09/11/17 19:01 98.6 Impression: Primary Impression: Hyperglycemia Additional Impressions: Diabetes mellitus Chronic kidney disease (CKD) Condition: Improved Disposition: HOME OR SELF-CARE Referrals: MEENAKSHI JENKINS (PCP) Patient Instructions: Diabetic Hyperglycemia (ED) Additional Instructions: Stay well-hydrated. Peak appear short-acting insulin and use as needed. Follow- up with primary care provider in 2 days as scheduled. If having any worsening or concerning symptoms may return to the emergency department. 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
[2017-09-11 19:45] LABS: PLATELET COUNT, AUTOMATED 301 K/uL (150-450)
[2017-09-11 20:09] VITALS: BP 183/57
[2017-09-11] MEDS ORDERED: INSU100V24 SQ (20:48)
== END 2017-09-11 20:51 | disposition home or self-care (01) ==
LOC: ER 18:57
DX: E13.21 Other specified diabetes mellitus with diabetic nephropathy (principal); N18.4 Chronic kidney disease, stage 4 (severe); D72.829 Elevated white blood cell count, unspecified
CPT/HCPCS: 36416; 81001; 82040; 82247; 82310; 82374; 82435; 82565; 82947; 82948; 83690; 84075; 84132; 84155; 84295; 84450; 84460; 84520; 85025; 99284

== ENCOUNTER → 2017-09-30 | Outpatient (CLI) | payer MEDICARE, BC ==
[2017-02-18 08:45] VITALS: BMI 24.5
[~2017-09-30] MED LIST changes: +INSU100V24 SQ
== END ==
LOC: LAB 16:35
PROVIDERS: ATTEND Nurse Practitioner Family
DX: K52.3 Indeterminate colitis (principal); R19.7 Diarrhea, unspecified
CPT/HCPCS: 83993; 86140

== ENCOUNTER → 2017-09-30 | Outpatient (CLI) | payer MEDICARE, BC ==
[2017-02-18 08:45] VITALS: BMI 24.5
[2017-09-30 17:28] LABS: PLATELET COUNT, AUTOMATED 403 K/uL (150-450)
== END ==
LOC: LAB 16:38
PROVIDERS: ATTEND Internal Medicine Nephrology
DX: E87.2 Acidosis (principal); E11.21 Type 2 diabetes mellitus with diabetic nephropathy; R80.9 Proteinuria, unspecified; I12.9 Hypertensive chronic kidney disease with stage 1 through stage 4 chronic kidney disease, or unspecified chronic kidney disease; E11.22 Type 2 diabetes mellitus with diabetic chronic kidney disease; N18.4 Chronic kidney disease, stage 4 (severe); R60.0 Localized edema; N25.81 Secondary hyperparathyroidism of renal origin
CPT/HCPCS: 36415; 82040; 82247; 82310; 82374; 82435; 82565; 82570; 82947; 84075; 84100; 84132; 84155; 84156; 84295; 84450; 84460; 84520; 85025

== ENCOUNTER 2017-10-07 20:32 | Inpatient (IN) | payer MEDICARE, BC ==
[2017-02-18 08:45] VITALS: Ht 177.8 cm; Wt 73.3 kg
[~2017-10-07] VITALS: Ht 177.8 cm; Wt 73.3 kg
[~2017-10-07 20:32] MED LIST changes: -[UNRECOGNIZED DRUG - CODE] MC; +[UNRECOGNIZED DRUG - CODE] PO
--- NOTE | 2017-10-07 20:36 | ER Report ---
History and Physical Time Seen By MD: 20:35 HPI/ROS CHIEF COMPLAINT: possible bowel obstruction HISTORY OF PRESENT ILLNESS: This is a 71 year old male. He came to the ER tonight because of concerns about possible bowel obstruction. He has had obstruction several time. He had symptoms starting this afternoon. Diffuse abdominal pain, periumbilical worst, radiation to bilateral flanks. Similar to prior symptoms. No longer passing stools or gas, last movement this afternoon, small amount. Having nausea and vomiting. No fevers or chills. No cough or shortness of breath. No chest pain. Took some of his regular pain medication prior to coming in and was able to keep it down; pain is starting to improve. REVIEW OF SYSTEMS: Constitutional: No fever or chills. Eyes: No vision changes. ENT: No sore throat. No congestion. Cardiovascular: No chest pain. Respiratory: No shortness of breath. Gastrointestinal: As above. Genitourinary: No dysuria. Musculoskeletal: No musculoskeletal pain. Skin: No rashes. Neurological: No numbness. No weakness. Allergies: Coded Allergies: codeine (Verified Allergy, Unknown, 10/07/17) Iodinated Contrast- Oral and IV Dye (Verified Adverse Reaction, Mild, 10/07) Home Meds Active Scripts Insulin Lispro (HUMALOG) 100 Unit/1 Ml Vial, 100 UNIT SQ 1-3XD Y for prn, #1 VIAL Prov:SEA PALACIO PA-C 09/11/17 Ondansetron (ZOFRAN ODT) 4 Mg Tab.rapdis, 4 MG PO Q4-6H Y for NAUSEA/VOMITING, # 15 Prov:ALESHA GAMINO DO 08/08/17 [B12] No Conflict Check, 1000 MCG IM Monthly, #22 MCG 1 Refill Inject 1000mcg monthly Prov:SATHISH HENRY NUCLEAR OPERATOR-BC, ONC 04/06/16 Reported Medications Insulin Glargine (LANTUS) 100 Unit/Ml Soln, 12 UNIT SUBQ QPM, ML 08/08/17 Insulin Glargine (LANTUS) 100 Unit/Ml Soln, 28 UNIT SUBQ QAM, ML 08/08/17 Calcitriol (CALCITRIOL) 0.25 Mcg Cap, 0.25 MCG FT DAILY, CAP 07/09/17 Loperamide Hcl (LOPERAMIDE) 5 Gm Powder, 12 GM MC DAILY 07/09/17 Folic Acid (FOLIC ACID) 1 Mg Tablet, 1 MG PO QDAY, TAB 07/09/17 Mesalamine (PENTASA) 250 Mg Capsule.er, 500 MG PO BID 07/09/17 Sodium Bicarbonate (SODIUM BICARBONATE) 650 Mg Tablet, 1950 MG PO BID 05/22/16 Furosemide (LASIX) 40 Mg Tablet, 40 MG PO QDAY, TAB 10/15/15 Ferrous Sulfate, Dried (IRON) 159 Mg Tablet.er, 130 MG PO BID twice daily 06/22/15 Vit A,C & E/Lutein/Minerals (OCUVITE TABLET) 1 Each Tablet, 1 EACH PO DAILY 06/22/15 Pentoxifylline (PENTOXIFYLLINE) 400 Mg Tabsr, 400 MG PO BID 03/13/15 Hydralazine Hcl (HYDRALAZINE HCL) 50 Mg Tablet, 50 MG PO TID, TAB 03/13/15 Dicyclomine Hcl (DICYCLOMINE HCL) 20 Mg Tablet, 20 MG PO TID 01/23/15 Levothyroxine Sodium (LEVOTHYROXINE SODIUM) 25 Mcg Tablet, 25 MCG PO QDAY 07/09/13 Pravastatin Sodium (PRAVASTATIN SODIUM) 20 Mg Tablet, 20 MG PO QDAY 07/09/13 Diltiazem Hcl (DILTIAZEM 24HR CD) 120 Mg Cap.er.24h, 120 MG PO BID 07/09/13 Clopidogrel Bisulfate (CLOPIDOGREL) 75 Mg Tablet, 1 TAB PO QDAY, TAB TAKE ONE TABLET BY MOUTH EVERY DAY 07/09/13 Aspirin (Adult Aspirin) 81 Mg Tab.chew, 81 MG PO DAILY 03/22/07 Anagrelide Hcl (Agrylin) 0.5 Mg Capsule, 0.5 MG PO DAILY 03/22/07 Past Medical/Surgical History Stage IV chronic kidney disease, type 2 diabetes on insulin, history of Crohn's disease, frequent bowel obstructions felt to be due to adhesions, colectomy, coronary artery disease with history of NC, hypertension, hyperlipidemia, gastroesophageal reflux disease and peripheral neuropathy, arthritis, hypothyroidism, history of thrombocytosis psoriasis, history of facial skin cancer. Reviewed Nurses Notes: Yes Hx Smoking: No (CHEWS 1 CAN Q 3 DAYS FOR 40 YEARS. SMOKED AGE 18 TO 23) Smoking Status: Never Smoker Exposure to Second Hand Smoke?: No Hx Substance Use Disorder: No Hx Alcohol Use: Yes Constitutional Vital Sign - Last 24 Hours 10/07/17 10/07/17 10/07/17 10/07/17 20:40 20:45 21:00 21:06 Temp 97.7 Pulse 82 76 75 Resp 14 B/P (MAP) 190/74 159/70 (99) Pulse Ox 98 100 97 O2 Delivery Room Air 10/07/17 10/07/17 10/07/17 10/07/17 21:15 21:30 21:45 22:00 Pulse 72 70 70 ??? B/P (MAP) 153/64 (93) Pulse Ox 97 97 10/07/17 10/07/17 10/07/17 10/07/17 22:15 22:17 22:23 22:30 Pulse ??? 73 69 Resp 14 B/P (MAP) 153/64 (93) 165/65 (98) 165/68 (100) Pulse Ox 95 94 O2 Delivery Room Air 10/07/17 10/07/17 10/07/17 10/07/17 22:45 23:00 23:15 23:30 Pulse 75 72 76 B/P (MAP) 169/68 (101) 164/67 (99) Pulse Ox 96 95 95 95 10/08/17 10/08/17 10/08/17 10/08/17 00:00 00:15 00:30 00:45 Pulse 73 78 79 B/P (MAP) 163/65 (97) 142/51 (81) Pulse Ox 91 95 85 94 10/08/17 10/08/17 10/08/17 10/08/17 01:00 01:15 01:30 01:45 Pulse 75 76 74 B/P (MAP) 148/54 (85) 148/47 (80) Pulse Ox 96 94 95 10/08/17 02:00 Pulse 72 B/P (MAP) 147/63 (91) Pulse Ox 93 Physical Exam General Appearance: The patient is alert. No acute distress. Eyes: Pupils are equal, round. No pallor, injection or icterus. ENT: Mucous membranes are moist. Normal oral mucosa. Posterior oropharynx is normal. Neck: Supple and non tender. No lymphadenopathy. Respiratory: Lungs are clear to auscultation. Cardiovascular: Regular rate and rhythm. No murmurs, gallops or rubs. Normal capillary refill. Gastrointestinal: Abdomen had diffuse tenderness, had pain in periumbilical are and less around the periphery. Nondistended. No rebound or guarding. Quiet bowels with sudden rushes. No costovertebral angle tenderness with percussion. Neurological: Alert and oriented x3. No focal neurologic deficits Skin: Warm and dry. DIFFERENTIAL DIAGNOSIS: After history and physical exam, differential diagnosis was considered for abdominal pain including but not limited to test her enteritis or bowel obstruction Medical Decision Making Data Points Result Diagram: 10/07/17204810/07/172048 Laboratory Hematology Test 10/07/17 20:35 10/07/17 20:49 10/07/17 22:14 Urine Color Yellow Urine Clarity Clear Urine pH 7.0 pH (4.8-9.5) Urine Specific [place] 1.015 Urine Protein 500 mg/dL (NEGATIVE) Urine Glucose (UA) 50 mg/dL (NEGATIVE) Urine Ketones Negative mg/dL (NEGATIVE) Urine Blood Negative (NEGATIVE) Urine Nitrite Negative (NEGATIVE) Urine Bilirubin Negative (NEGATIVE) Urine Urobilinogen Negative mg/dL (0.2-1.9) Urine Leukocyte Esterase Negative (NEGATIVE) Urine RBC 1 /HPF (0-2/HPF) Urine WBC 2 /HPF (0-5/HPF) Urine Squamous Epithelial Cells None /LPF (</=FEW) Urine Bacteria Negative /HPF (NONE-FEW) Urine Mucus None /HPF (NONE-FEW) Red Blood Count 4.83 M/uL (4.00-5.60) Mean Corpuscular Volume 84.2 fL (80.0-96.0) Mean Corpuscular Hemoglobin 27.5 pg (26.0-33.0) Mean Corpuscular Hemoglobin Concent 32.7 g/dL (32.0-36.0) Red Cell Distribution Width 18.9 % (11.5-14.5) Mean Platelet Volume 9.3 fL (7.2-11.1) Neutrophils (%) (Auto) 84.5 % (39.4-72.5) Lymphocytes (%) (Auto) 9.4 % (17.6-49.6) Monocytes (%) (Auto) 2.8 % (4.1-12.4) Eosinophils (%) (Auto) 2.3 % (0.4-6.7) Basophils (%) (Auto) 1.0 % (0.3-1.4) Nucleated RBC Relative Count (auto) 0.1 /100WBC Neutrophils # (Auto) 21.5 K/uL (2.0-7.4) Lymphocytes # (Auto) 2.4 K/uL (1.3-3.6) Monocytes # (Auto) 0.7 K/uL (0.3-1.0) Eosinophils # (Auto) 0.6 K/uL (0.0-0.5) Basophils # (Auto) 0.3 K/uL (0.0-0.1) Nucleated RBC Absolute Count (auto) 0.01 K/uL Peripheral Blood Smear Yes Y/N Sodium Level 140 mmol/L (137-145) Potassium Level 4.1 mmol/L (3.5-5.0) Chloride Level 100 mmol/L (98-107) Carbon Dioxide Level 24 mmol/L (22-30) Blood Urea Nitrogen 60 mg/dl (9-21) Creatinine 5.10 mg/dl (0.66-1.25) Glomerular Filtration Rate Calc 11.2 Random Glucose 46 mg/dl (75-110) Lactate 1.5 mmol/L (0.7-2.1) Calcium Level 10.0 mg/dl (8.4-10.2) Total Bilirubin 0.5 mg/dl (0.2-1.3) Aspartate Amino Transf (AST/SGOT) 21 U/L (0-35) Alanine Aminotransferase (ALT/SGPT) 31 U/L (0-56) Alkaline Phosphatase 157 U/L (0-126) Total Protein 7.3 gm/dl (6.3-8.2) Albumin 4.3 g/dl (3.5-5.0) Amylase Level 89 U/L (0-110) Lipase 130 U/L (23-300) Whole Blood Glucose 94 mg/DL (75-110) Chemistry Test 10/07/17 20:35 10/07/17 20:49 10/07/17 22:14 Urine Color Yellow Urine Clarity Clear Urine pH 7.0 pH (4.8-9.5) Urine Specific [place] 1.015 Urine Protein 500 mg/dL (NEGATIVE) Urine Glucose (UA) 50 mg/dL (NEGATIVE) Urine Ketones Negative mg/dL (NEGATIVE) Urine Blood Negative (NEGATIVE) Urine Nitrite Negative (NEGATIVE) Urine Bilirubin Negative (NEGATIVE) Urine Urobilinogen Negative mg/dL (0.2-1.9) Urine Leukocyte Esterase Negative (NEGATIVE) Urine RBC 1 /HPF (0-2/HPF) Urine WBC 2 /HPF (0-5/HPF) Urine Squamous Epithelial Cells None /LPF (</=FEW) Urine Bacteria Negative /HPF (NONE-FEW) Urine Mucus None /HPF (NONE-FEW) White Blood Count 25.5 k/uL (4.5-11.0) Red Blood Count 4.83 M/uL (4.00-5.60) Hemoglobin 13.3 g/dL (14.0-18.0) Hematocrit 40.6 % (42.0-52.0) Mean Corpuscular Volume 84.2 fL (80.0-96.0) Mean Corpuscular Hemoglobin 27.5 pg (26.0-33.0) Mean Corpuscular Hemoglobin Concent 32.7 g/dL (32.0-36.0) Red Cell Distribution Width 18.9 % (11.5-14.5) Platelet Count 497 K/uL (150-450) Mean Platelet Volume 9.3 fL (7.2-11.1) Neutrophils (%) (Auto) 84.5 % (39.4-72.5) Lymphocytes (%) (Auto) 9.4 % (17.6-49.6) Monocytes (%) (Auto) 2.8 % (4.1-12.4) Eosinophils (%) (Auto) 2.3 % (0.4-6.7) Basophils (%) (Auto) 1.0 % (0.3-1.4) Nucleated RBC Relative Count (auto) 0.1 /100WBC Neutrophils # (Auto) 21.5 K/uL (2.0-7.4) Lymphocytes # (Auto) 2.4 K/uL (1.3-3.6) Monocytes # (Auto) 0.7 K/uL (0.3-1.0) Eosinophils # (Auto) 0.6 K/uL (0.0-0.5) Basophils # (Auto) 0.3 K/uL (0.0-0.1) Nucleated RBC Absolute Count (auto) 0.01 K/uL Peripheral Blood Smear Yes Y/N Glomerular Filtration Rate Calc 11.2 Lactate 1.5 mmol/L (0.7-2.1) Calcium Level 10.0 mg/dl (8.4-10.2) Total Bilirubin 0.5 mg/dl (0.2-1.3) Aspartate Amino Transf (AST/SGOT) 21 U/L (0-35) Alanine Aminotransferase (ALT/SGPT) 31 U/L (0-56) Alkaline Phosphatase 157 U/L (0-126) Total Protein 7.3 gm/dl (6.3-8.2) Albumin 4.3 g/dl (3.5-5.0) Amylase Level 89 U/L (0-110) Lipase 130 U/L (23-300) Whole Blood Glucose 94 mg/DL (75-110) Urinalysis Test 10/07/17 20:35 Urine Color Yellow Urine Clarity Clear Urine pH 7.0 pH (4.8-9.5) Urine Specific [place] 1.015 Urine Protein 500 mg/dL (NEGATIVE) Urine Glucose (UA) 50 mg/dL (NEGATIVE) Urine Ketones Negative mg/dL (NEGATIVE) Urine Blood Negative (NEGATIVE) Urine Nitrite Negative (NEGATIVE) Urine Bilirubin Negative (NEGATIVE) Urine Urobilinogen Negative mg/dL (0.2-1.9) Urine Leukocyte Esterase Negative (NEGATIVE) Urine RBC 1 /HPF (0-2/HPF) Urine WBC 2 /HPF (0-5/HPF) Urine Squamous Epithelial Cells None /LPF (</=FEW) Urine Bacteria Negative /HPF (NONE-FEW) Urine Mucus None /HPF (NONE-FEW) EKG/Imaging Imaging EXAMINATION: CT abdomen without IV contrast CT pelvis without IV contrast HISTORY: Abdominal pain. TECHNIQUE: Spiral scan was through the abdomen and pelvis without intravenous contrast. Sagittal and coronal reformatted images are also submitted. One of the following dose optimization techniques was utilized in the performance of this exam: Automated exposure control; adjustment of the mA and/ or kV according to the patient's size; or use of an iterative reconstruction technique. Specific details can be referenced in the facility's radiology CT exam operational policy. COMPARISON: 08/08/2017. FINDINGS: Lower chest: Trace right pleural effusion. Please note that without intravenous contrast, sensitivity to detection of parenchymal disease is limited. Liver / biliary: Cholelithiasis without evidence of acute cholecystitis. Otherwise negative. Pancreas: Negative. Spleen: Negative. Adrenal glands: Negative. Kidneys: Negative. Pelvic structures: Mildly enlarged prostate gland. Otherwise negative. Bowel: Mild sigmoid diverticulosis without evidence of acute diverticulitis. Ileocolic anastomosis. Mildly diffusely dilated small bowel with no transition point measuring up to 4.3 cm. No bowel wall thickening or pneumatosis. Peritoneum / retroperitoneum / mesenteries: No free fluid or free air. Vessels: Moderate aortoiliac calcification without aneurysm. Musculoskeletal / Body wall: Mild multilevel degenerative disc disease and facet hypertrophy in the thoracolumbar spine Lymph node assessment: Negative. IMPRESSION: 1. Mildly diffusely dilated small bowel leading up to the ileocolic anastomosis measuring up to 4.3 cm in diameter suspicious for distal small bowel obstruction. 2. Otherwise no acute abnormality in the abdomen or pelvis. 3. Cholelithiasis without evidence of acute cholecystitis. 4. Trace right pleural effusion. 5. Mildly enlarged prostate gland. Results were called to GATITO MURRAY at 10/07/2017 11:39 PM. ED Course/Re-evaluation Clinical Indication for ER IV: Hydration, IV Access ED Course No nausea and vomiting, so no NG tube was placed. Pain medication not needed while here in the ER. Discussed with Dr. Mayen and with Dr. Roberts. Dr. Roberts came to the ER to evaluate the patient and will admit with Dr. Mayen consulting. Had episode of hypoglycemia at start of ER stay. Gave 1/2 amp of D50 and started D5NS at 100cc/hr. Also given Protonix 40mg IV. Decision to Disposition Date: Oct 08, 2017 Decision to Disposition Time: 02:06 Depart Departure Latest Vital Signs Vital Signs Date Time Temp Pulse Resp B/P (MAP) Pulse Ox O2 Delivery O2 Flow Rate FiO2 10/08/17 02:00 72 147/63 (91) 93 10/07/17 22:17 14 Room Air 10/07/17 20:40 97.7 Impression: Primary Impression: Small bowel obstruction Additional Impressions: CKD (chronic kidney disease) stage 4, GFR 15-29 ml/min Type 2 diabetes mellitus Condition: Condition Unchanged Disposition: Admitted from ER Referrals: MEENAKSHI JENKINS (PCP) Problem Qualifiers Additional Impressions: Type 2 diabetes mellitus Diabetes mellitus chcf insulin use: with chcf use Diabetes mellitus complication status: with kidney complications Diabetes mellitus complication detail: with chronic kidney disease Chronic kidney disease stage : stage 4 (severe) Qualified Codes: E11.22 - Type 2 diabetes mellitus with diabetic chronic kidney disease; N18.4 - Chronic kidney disease, stage 4 (severe ); Z79.4 - superintendent [employer] (current) use of insulin GATITO MURRAY MD Oct 07, 2017 20:35
[2017-10-07] MEDS ORDERED: PANTOPRAZOLE SOD 40 MG IV VIAL IVP ONE (21:00)
[2017-10-07 21:06] LABS: PLATELET COUNT, AUTOMATED 497 K/uL (150-450)
[2017-10-07] MEDS ORDERED: DLR(*) 1000 ML BAG 1,000 ML IV ONE (21:16)
[2017-10-07] MEDS ORDERED: D5NS(*) 1000 ML BAG 1,000 ML IV ONE (21:20)
[2017-10-07] MEDS ORDERED: DEXTROSE 50% 50 ML SYR IVP ONE (21:20)
--- NOTE | 2017-10-07 23:48 | RADIOLOGY IMAGING REPORT ---
FACILITY: [facility] - [place], [place] PATIENT NAME: Wei Osman : 1945 MR: [id number] V: [id number] EXAM DATE: ORDERING PHYSICIAN: GATITO MURRAY TECHNOLOGIST: Location: [facility] Patient: Wei Osman : 1945 Visit/Account:[id number] Date of Sevice: 10/07/2017 EXAMINATION: CT abdomen without IV contrast CT pelvis without IV contrast HISTORY: Abdominal pain. TECHNIQUE: Spiral scan was through the abdomen and pelvis without intravenous contrast. Sagittal a nd coronal reformatted images are also submitted. One of the following dose optimization techniques was utilized in the performance of this exam: Autom ated exposure control; adjustment of the mA and/or kV according to the patient's size; or use of an i terative reconstruction technique. Specific details can be referenced in the facility's radiology C T exam operational policy. COMPARISON: 08/08/2017. FINDINGS: Lower chest: Trace right pleural effusion. Please note that without intravenous contrast, sensitivity to detection of parenchymal disease is [place] ited. Liver / biliary: Cholelithiasis without evidence of acute cholecystitis. Otherwise negative. Pancreas: Negative. Spleen: Negative. Adrenal glands: Negative. Kidneys: Negative. Pelvic structures: Mildly enlarged prostate gland. Otherwise negative. Bowel: Mild sigmoid diverticulosis without evidence of acute diverticulitis. Ileocolic anastomosis. M ildly diffusely dilated small bowel with no transition point measuring up to 4.3 cm. No bowel wall th ickening or pneumatosis. Peritoneum / retroperitoneum / mesenteries: No free fluid or free air. Vessels: Moderate aortoiliac calcification without aneurysm. Musculoskeletal / Body wall: Mild multilevel degenerative disc disease and facet hypertrophy in the t horacolumbar spine Lymph node assessment: Negative. IMPRESSION: 1. Mildly diffusely dilated small bowel leading up to the ileocolic anastomosis measuring up to 4.3 c m in diameter suspicious for distal small bowel obstruction. 2. Otherwise no acute abnormality in the abdomen or pelvis. 3. Cholelithiasis without evidence of acute cholecystitis. 4. Trace right pleural effusion. 5. Mildly enlarged prostate gland. Results were called to GATITO MURRAY at 10/07/2017 11:39 PM. Report Dictated By: Anthony García MD at 10/07/2017 11:25 PM Report E-Signed By: Anthony García MD at 10/07/2017 11:44 PM WSN:[id number]
[2017-10-08] MEDS ORDERED: D5NS(*) 1000 ML BAG 1,000 ML IV PRN (02:10)
[2017-10-08] MEDS ORDERED: INSULIN HUM LISPRO 100 UN/ML 3 ML VIAL SUBQ PRN (02:10)
[2017-10-08] MEDS ORDERED: PROMETHAZINE 25 MG/ML 1 ML AMP IVP PRN (02:35)
[2017-10-08] MEDS ORDERED: MORPHINE 2 MG/ML SYR IVP PRN (02:35)
--- NOTE | 2017-10-08 02:43 | History & Physical ---
History of Present Illness History of Present Illness 71yo male with extensive PMHx including recurrent SBO, type 2 DM, CRF, Crohn's disease who came in for abdominal pain and vomiting. The pain started in the epigastric region at 1730. It was 8/10 and intermittent. Then he vomited twice some brown substance then green. He took a Percocet and then decided to come in to the hospital. He denies orthopnea, fevers, chills, cp, sob. He had a small bowel movement at about 1730. He normally has a couple loose stools a day. History Problems: (1) CKD (chronic kidney disease) stage 4, GFR 15-29 ml/min Status: Chronic (2) Crohn disease Status: Chronic (3) Pernicious anemia Status: Chronic (4) Hypothyroidism Status: Chronic (5) PUD (peptic ulcer disease) Status: Chronic (6) CVD (cerebrovascular disease) Status: Chronic (7) HTN (hypertension) Status: Chronic (8) Type 2 diabetes mellitus Status: Chronic (9) Small bowel obstruction Status: Acute (10) PVD (peripheral vascular disease) Status: Chronic (11) Essential thrombocytosis Status: Chronic (12) Leukocytosis Status: Chronic Home Meds Active Scripts Insulin Lispro (HUMALOG) 100 Unit/1 Ml Vial, 100 UNIT SQ 1-3XD Y for prn, #1 VIAL Prov:SEA PALACIO PA-C 09/11/17 Ondansetron (ZOFRAN ODT) 4 Mg Tab.rapdis, 4 MG PO Q4-6H Y for NAUSEA/VOMITING, # 15 Prov:ALESHA GAMINO DO 08/08/17 [B12] No Conflict Check, 1000 MCG IM Monthly, #22 MCG 1 Refill Inject 1000mcg monthly Prov:SATHISH HENRY CLOTH BOIL OFF MACHINE OPERATOR-BC, ONC 04/06/16 Reported Medications Insulin Glargine (LANTUS) 100 Unit/Ml Soln, 12 UNIT SUBQ QPM, ML 08/08/17 Insulin Glargine (LANTUS) 100 Unit/Ml Soln, 28 UNIT SUBQ QAM, ML 08/08/17 Calcitriol (CALCITRIOL) 0.25 Mcg Cap, 0.25 MCG FT DAILY, CAP 07/09/17 Loperamide Hcl (LOPERAMIDE) 5 Gm Powder, 12 GM MC DAILY 07/09/17 Folic Acid (FOLIC ACID) 1 Mg Tablet, 1 MG PO QDAY, TAB 07/09/17 Mesalamine (PENTASA) 250 Mg Capsule.er, 500 MG PO BID 07/09/17 Sodium Bicarbonate (SODIUM BICARBONATE) 650 Mg Tablet, 1950 MG PO BID 05/22/16 Furosemide (LASIX) 40 Mg Tablet, 40 MG PO QDAY, TAB 10/15/15 Ferrous Sulfate, Dried (IRON) 159 Mg Tablet.er, 130 MG PO BID twice daily 06/22/15 Vit A,C & E/Lutein/Minerals (OCUVITE TABLET) 1 Each Tablet, 1 EACH PO DAILY 06/22/15 Pentoxifylline (PENTOXIFYLLINE) 400 Mg Tabsr, 400 MG PO BID 03/13/15 Hydralazine Hcl (HYDRALAZINE HCL) 50 Mg Tablet, 50 MG PO TID, TAB 03/13/15 Dicyclomine Hcl (DICYCLOMINE HCL) 20 Mg Tablet, 20 MG PO TID 01/23/15 Levothyroxine Sodium (LEVOTHYROXINE SODIUM) 25 Mcg Tablet, 25 MCG PO QDAY 07/09/13 Pravastatin Sodium (PRAVASTATIN SODIUM) 20 Mg Tablet, 20 MG PO QDAY 07/09/13 Diltiazem Hcl (DILTIAZEM 24HR CD) 120 Mg Cap.er.24h, 120 MG PO BID 07/09/13 Clopidogrel Bisulfate (CLOPIDOGREL) 75 Mg Tablet, 1 TAB PO QDAY, TAB TAKE ONE TABLET BY MOUTH EVERY DAY 07/09/13 Aspirin (Adult Aspirin) 81 Mg Tab.chew, 81 MG PO DAILY 03/22/07 Anagrelide Hcl (Agrylin) 0.5 Mg Capsule, 0.5 MG PO DAILY 03/22/07 Allergies: Coded Allergies: codeine (Verified Allergy, Unknown, 10/07/17) Iodinated Contrast- Oral and IV Dye (Verified Adverse Reaction, Mild, 10/07) Patient History: FH: diabetes mellitus FATHER BROTHER OR SISTER Hx Smoking: No (CHEWS 1 CAN Q 3 DAYS FOR 40 YEARS. SMOKED AGE 18 TO 23) Smoking Status: Never Smoker Exposure to Second Hand Smoke?: No Caffeine Intake: Coffee, Tea, Soda Caffeine/Cups Per Day: 16oz. TEA. 1 COKE EVERY DAY. OCCASIONAL COFFEE Hx Alcohol Use: Yes Hx Substance Use Disorder: No Social Drug Use: Never Review of Systems All Systems Reviewed/Normal: Yes, Except as Noted Exam Vital Signs Vital Signs Date Time Temp Pulse Resp B/P (MAP) Pulse Ox O2 Delivery O2 Flow Rate FiO2 10/08/17 02:00 72 147/63 (91) 93 10/07/17 22:17 14 Room Air 10/07/17 20:40 97.7 General Appearance: Alert, Awake, No Acute Distress Neuro: No Gross deficits Eyes: PERRLA ENT: Moist Mucous Membranes (Brown flecks on tongue) Cardiovascular: Regular Rate and Rhythm Respiratory: Clear to Auscultation GI: Abd Soft and Non-Tender Extremities: No Edema Integumentary: No Jaundice, No Cyanosis Medical Decision Making Data Points Result Diagram: 10/07/17204810/07/172048 Item Value Date Time Creatinine 4.20 mg/dl *H 08/08/17 0418 Creatinine 5.30 mg/dl *H 09/11/17 1914 Creatinine 4.90 mg/dl *H 09/30/17 1706 Calcium Level 9.0 mg/dl 09/30/17 1706 Phosphorus Level 6.0 mg/dl H 09/30/17 1706 Total Bilirubin 0.3 mg/dl 09/30/17 1706 Aspartate Amino Transf (AST/SGOT) 18 U/L 09/30/17 170 Alanine Aminotransferase (ALT/SGPT) 31 U/L 09/30/17 170 Alkaline Phosphatase 145 U/L H 09/30/171705 Mean Corpuscular Volume 84.2 fL 10/07/172048 Neutrophils (%) (Auto) 84.5 % H 10/07/172048 Lymphocytes (%) (Auto) 9.4 % L 10/07/172048 Monocytes (%) (Auto) 2.8 % L 10/07/172048 Eosinophils (%) (Auto) 2.3 % 10/07/172048 Basophils (%) (Auto) 1.0 % 10/07/172048 Urine RBC 1 /HPF 10/07/172034 Urine WBC 2 /HPF 10/07/172034 Urine Glucose (UA) 50 mg/dL H 10/07/172034 Urine Protein 500 mg/dL 10/07/172034 Urine Mucus None /HPF 10/07/172034 Urine Bacteria Negative /HPF 10/07/172034 Urine Squamous Epithelial Cells None /LPF 10/07/172034 EKG / Imaging Imaging Abd/Pelvis CT - 1. Mildly diffusely dilated small bowel leading up to the ileocolic anastomosis measuring up to 4.3 cm in diameter suspicious for distal small bowel obstruction. 2. Otherwise no acute abnormality in the abdomen or pelvis. 3. Cholelithiasis without evidence of acute cholecystitis. 4. Trace right pleural effusion. 5. Mildly enlarged prostate gland. Assessment and Plan Problems: (1) Small bowel obstruction Status: Acute Assessment & Plan: He presented with abdominal pain and vomiting a couple hours before going to the ER. He has evidence of a distal SBO at the ileocolic anastomosis site. He is comfortable and has a benign abdominal exam. Dr. Mayen will see him later this morning. He will be NPO except for sips of water. (2) Hypoglycemia Status: Acute Assessment & Plan: Secondary to Lantus and poor intake. He is on D5NS, which will be continued. Will hold his usual Lantus of 25 units qam and 4 units qpm (3) CKD (chronic kidney disease) stage 4, GFR 15-29 ml/min Status: Chronic Assessment & Plan: Baseline creatinine is 4.2-5.3. He has a maturing fistula in his right arm (placed 09/08/17). Will follow. (4) Type 2 diabetes mellitus Status: Chronic Assessment & Plan: See above. (5) HTN (hypertension) Status: Chronic Assessment & Plan: Continue chronic diltiazem, hydralazine. Hold Lasix for now. (6) Essential thrombocytosis Status: Chronic Assessment & Plan: Continue Agrylin. (7) Anemia Status: Chronic Assessment & Plan: He is followed by Hematology. He gets Aranesp prn (last was end of August). Also, getting B12 shots. (8) CAD (coronary artery disease) Status: Chronic Assessment & Plan: Continue chronic ASA and Plavix. Hold Pravastatin. (9) Crohn disease Status: Chronic Assessment & Plan: Continue Pentasa. (10) Leukocytosis Status: Chronic Copies to: DARON GARCIA MD; MEENAKSHI JENKINS Venous Thromboembolism Antithrombotics Is Pt On Any Antithrombotics?: No Exam Sepsis Risk: No Definite Risk JAOKB BLANDON MD Oct 08, 2017 02:43
[2017-10-08 02:55] VITALS: BP 155/79
[2017-10-08] MEDS ORDERED: DEXTROSE 50% 50 ML SYR IVP ONE (03:15)
[2017-10-08] MEDS ORDERED: DEXTROSE 50% 50 ML SYR ONE (03:18)
[2017-10-08] MEDS ORDERED: MULT1CAP59 PO (04:10)
[2017-10-08] MEDS ORDERED: FLUT16SP19 NS (04:10)
[2017-10-08] MEDS: LEVOTHYROXINE SOD 0.025 MG TAB PO SCH (06:07)
--- NOTE | 2017-10-08 08:21 | General Surgery Consultation ---
History of Present Illness Requesting Physician Dr. Roberts, Hospitalist Service Reason for Consult SBO Chief Complaint Abdominal pain History of Present Illness 71yo male, complex patient due to Crohns dz, renal failure not currently on dialysis but may be in the near future, chronic leukocytosis, presents with abdominal pain for 1 day. Last BM was last evening at 1730. Passing small amounts of flatus. Feeling a little better this morning. He has had several SBOs in the past managed conservatively. He has a h/o ex lap with ileocectomy for Crohns in 2001, no other abdominal surgeries. History Problems: (1) Anemia Status: Chronic (2) CRI (chronic renal insufficiency) Status: Chronic (3) Right-sided heart failure syndrome Status: Chronic (4) Hypothyroidism Status: Chronic (5) PUD (peptic ulcer disease) Status: Chronic (6) PVD (peripheral vascular disease) Status: Chronic (7) CVD (cerebrovascular disease) Status: Chronic (8) CAD (coronary artery disease) Status: Chronic (9) Crohn disease Status: Chronic (10) Leukocytosis Status: Chronic (11) HTN (hypertension) Status: Chronic (12) Type 2 diabetes mellitus Status: Chronic (13) Essential thrombocytosis Status: Chronic (14) CKD (chronic kidney disease) stage 4, GFR 15-29 ml/min Status: Chronic Home Meds Active Scripts Insulin Lispro (HUMALOG) 100 Unit/1 Ml Vial, 100 UNIT SQ 1-3XD Y for prn, #1 VIAL Prov:SEA PALACIO PA-C 09/11/17 Ondansetron (ZOFRAN ODT) 4 Mg Tab.rapdis, 4 MG PO Q4-6H Y for NAUSEA/VOMITING, # 15 Prov:ALESHA GAMINO DO 08/08/17 [B12] No Conflict Check, 1000 MCG IM Monthly, #22 MCG 1 Refill Inject 1000mcg monthly Prov:SATHISH HENRY MARKETING INSTRUCTOR-BC, ONC 04/06/16 Reported Medications Fluticasone Prop 50 Mcg Ns (FLONASE 50 MCG NS) 16 Gm [place].susp, 1 SPRAY NS BID , BOT 10/08/17 Multivitamin (MULTIVITAMINS) 1 Each Capsule, 1 EACH PO QDAY, CAPSULE 10/08/17 Insulin Glargine (LANTUS) 100 Unit/Ml Soln, 4 UNIT SUBQ QPM, ML 08/08/17 Insulin Glargine (LANTUS) 100 Unit/Ml Soln, 28 UNIT SUBQ QAM, ML 08/08/17 Calcitriol (CALCITRIOL) 0.25 Mcg Cap, 0.25 MCG FT DAILY, CAP 07/09/17 Loperamide Hcl (LOPERAMIDE) 5 Gm Powder, 12 MG PO DAILY 07/09/17 Folic Acid (FOLIC ACID) 1 Mg Tablet, 1 MG PO QDAY, TAB 07/09/17 Mesalamine (PENTASA) 250 Mg Capsule.er, 500 MG PO BID 07/09/17 Sodium Bicarbonate (SODIUM BICARBONATE) 650 Mg Tablet, 1950 MG PO BID 05/22/16 Furosemide (LASIX) 40 Mg Tablet, 40 MG PO QDAY, TAB 10/15/15 Ferrous Sulfate, Dried (IRON) 159 Mg Tablet.er, 130 MG PO BID twice daily 06/22/15 Vit A,C & E/Lutein/Minerals (OCUVITE TABLET) 1 Each Tablet, 1 EACH PO DAILY 06/22/15 Pentoxifylline (PENTOXIFYLLINE) 400 Mg Tabsr, 400 MG PO BID 03/13/15 Hydralazine Hcl (HYDRALAZINE HCL) 50 Mg Tablet, 50 MG PO TID, TAB 03/13/15 Dicyclomine Hcl (DICYCLOMINE HCL) 20 Mg Tablet, 20 MG PO TID 01/23/15 Levothyroxine Sodium (LEVOTHYROXINE SODIUM) 25 Mcg Tablet, 25 MCG PO QDAY 07/09/13 Pravastatin Sodium (PRAVASTATIN SODIUM) 20 Mg Tablet, 20 MG PO QDAY 07/09/13 Diltiazem Hcl (DILTIAZEM 24HR CD) 120 Mg Cap.er.24h, 120 MG PO BID 07/09/13 Clopidogrel Bisulfate (CLOPIDOGREL) 75 Mg Tablet, 1 TAB PO QDAY, TAB TAKE ONE TABLET BY MOUTH EVERY DAY 07/09/13 Aspirin (Adult Aspirin) 81 Mg Tab.chew, 81 MG PO DAILY 03/22/07 Anagrelide Hcl (Agrylin) 0.5 Mg Capsule, 0.5 MG PO DAILY 03/22/07 Allergies: Coded Allergies: codeine (Verified Allergy, Unknown, 10/07/17) Iodinated Contrast- Oral and IV Dye (Verified Adverse Reaction, Mild, 10/07) Family History: FH: diabetes mellitus FATHER BROTHER OR SISTER CHILD Review of Systems All Systems Reviewed/Normal: Yes, Except as Noted Gastrointestinal: Abdominal Pain Exam Vital Signs Vital Signs Date Time Temp Pulse Resp B/P (MAP) Pulse Ox O2 Delivery O2 Flow Rate FiO2 10/08/17 03:47 91 Room Air 10/08/17 02:55 97.9 80 14 155/79 (104) General Appearance: Alert, Awake, No Acute Distress, Afebrile Neuro: No Gross deficits Eyes: PERRLA GI: Abd Soft and Non-Tender Extremities: Warm, Perfused Medical Decision Making Data Points Result Diagram: 10/07/17204810/07/172048 Assessment and Plan Problems: (1) Small bowel obstruction Status: Acute Assessment & Plan: 10/08/17: Will start conservative management. No NG placed as patient is feeling better and passing small amounts of flatus without N/V. Will get a water-soluble SBFT today. If contrast goes through will try a diet trial. (2) Crohn disease Status: Chronic (3) CAD (coronary artery disease) Status: Chronic (4) Type 2 diabetes mellitus Status: Chronic (5) CKD (chronic kidney disease) stage 4, GFR 15-29 ml/min Status: Chronic (6) Leukocytosis Status: Chronic (7) Essential thrombocytosis Status: Chronic Condition Stable. Time Spent: < 30 min Venous Thromboembolism Antithrombotics Is Pt On Any Antithrombotics?: No Problem Qualifiers (1) Crohn disease: Gastrointestinal tract location: small intestine (2) CAD (coronary artery disease): Coronary Disease-Associated Artery/Lesion type: unspecified vessel or lesion type [place] vs. transplanted heart: [place] heart Associated angina: without angina Qualified Codes: I25.10 - Atherosclerotic heart disease of [place] coronary artery without angina pectoris (3) Type 2 diabetes mellitus: Diabetes mellitus technician terminal and repeater insulin use: unspecified usp insulin use status Diabetes mellitus complication status: with unspecified complications Qualified Codes: E11.8 - Type 2 diabetes mellitus with unspecified complications (4) Leukocytosis: Leukocytosis type: unspecified Qualified Codes: D72.829 - Elevated white blood cell count, unspecified WES RUTH MD Oct 08, 2017 08:21
[2017-10-08 08:28] VITALS: BP 149/61
[2017-10-08] MEDS: CLOPIDOGREL BISULFATE 75MG TAB PO SCH (08:38)
[2017-10-08] MEDS: ASPIRIN 81 MG CHEW PO SCH (08:38)
[2017-10-08] MEDS: PENTOXIFYLLINE 400 MG PO SCH ×2 (08:39→21:16)
[2017-10-08] MEDS: hydrALAZINE HCL 25 MG TAB PO SCH ×3 (08:39→21:15)
[2017-10-08] MEDS: DILTIAZEM CD 120 MG CAPCR PO SCH ×2 (08:39→21:15)
[2017-10-08] MEDS: SODIUM BICARBONATE 650 MG TAB PO SCH ×2 (08:40→21:16)
[2017-10-08] MEDS: ANAGRELIDE HCL 0.5 MG PO SCH (09:00)
[2017-10-08] MEDS ORDERED: INFLUENZA VIRUS VAC 0.5 ML SYR IM ONLY ONE (09:00)
[2017-10-08] MEDS: MESALAMINE 250 MG CAPCR PO SCH ×2 (09:00→21:00)
[2017-10-08] MEDS ORDERED: DIATRIZOATE MEGL/DIATRIZOA SOD 120 ML SOLN PO ONE (09:05)
--- NOTE | 2017-10-08 10:47 | Medical Nutrition Therapy ---
Nutrition Anthropometrics Height (Inches): 70.00 Height (Calculated Centimeters: 177.401285 Weight (Pounds): 161 Weight (Calculated Kilograms): 73.255 BMI Calculated: 24.53 Fareed Nutrition Score: Probably Inadequate Fareed Nutrition Risk Score: 20 Dietary Referral Nutrition Risk Factors: Nutrition Risk Comment: Physical Findings Physical Appearance: BMI WNR Skin Appearance Skin Appearance: Edema Edema Location Modifier: Edema Location: Type of Edema: Degree of Edema: Gastrointestinal Symptoms GI Symtoms: Change in Bowel Pattern Tube Present: Bowel Sounds: Recent Bowel Pattern: Stool Characteristics: Nutritional Diagnosis Nutritional Risk Acuity 1: GI Obstruction Nutritional Risk Acuity 3: Nausea Past Medical History: HX of recurrent SBO, T2DM, HTN, CKD-4, hypothyroid, Crohn's, CAD, TIA, anemia, right-sided heart failure. Nutritional Acuity: 1-High Nutrition Diagnosis: Altered GI Function Nutrition Etiology: Physiological Causes Nutrition Problem/Etiology/Sym: AEB SBO Energy Requirement: 2130 (M- StJ X 1.1 SF) Protein Requirement: 58 (.8gm/kg) Fluid Requirement: 2190 (30 ml/kg) Diet Type: NPO (Nothing by Mouth) Nutrition Intervention: Incr diet as tolerated Nutrition Monitoring & Eval RD Patient Assessment Time: [address] Assessment Type: RD Assessment Patient Nutrition Acuity: 1-High Follow Up Date: Oct 11, 2017 Nutritional Comment: 10/08 Pt admitted for SBO. Pt has hx of crohns dx, T2DM and CKD-4. Alb 4.3 Creatine 5.1, BUN 60, BG range 54- 125. BMI is WNR but is down 10# from last admit in December 2016. Pt currently NPO and reporting N/V. Will cont to monitor. Recommend nutr support if NPO > 3 days. DANIELLE JAMES Oct 08, 2017 10:47
--- NOTE | 2017-10-08 13:48 | Hospitalist Progress Note ---
Subjective Progress Notes Subjective He reports feeling improved. Now having loose stools. Physical Exam Vital Signs Date Time Temp Pulse Resp B/P (MAP) Pulse Ox O2 Delivery O2 Flow Rate FiO2 10/08/17 08:35 94 Room Air 10/08/17 08:28 98.3 69 16 149/61 (90) Intake and Output 10/09/17 07:00 Intake Total 960 ml Balance 960 ml Intake Oral 960 ml # Voids 3 # Bowel Movements 6 General Appearance: Alert, Awake Cardiovascular: Regular Rate and Rhythm (with soft systolic murmur) Respiratory: Clear to Auscultation GI: Other (soft/BS present) Psych: Alert & Oriented X3 Result Diagram: 10/07/17204810/07/172048 Assessment and Plan Problems: (1) Small bowel obstruction Status: Acute Assessment & Plan: He presented with abdominal pain and vomiting a couple hours before going to the ER. He had evidence of a distal SBO at the ileocolic anastomosis site. He is now comfortable and has a benign abdominal exam. Dr. Mayen did see him and ordered UGI with SBFT, which shows contrast in his rectum (final report is pending). It appears he has now resolved his obstruction. Will start on clear liquids today. (2) Hypoglycemia Status: Acute Assessment & Plan: Secondary to Lantus and poor intake. He is on D5NS, which will be continued. Will hold his usual Lantus of 25 units qAM and 4 units qPM. Watch glucoses. (3) CKD (chronic kidney disease) stage 4, GFR 15-29 ml/min Status: Chronic Assessment & Plan: Baseline creatinine is 4.2-5.3. He has a maturing fistula in his right arm (placed 09/08/17). Will follow. (4) Type 2 diabetes mellitus Status: Chronic Assessment & Plan: See above. (5) HTN (hypertension) Status: Chronic Assessment & Plan: Continue chronic diltiazem, hydralazine. Hold Lasix for now. (6) Essential thrombocytosis Status: Chronic Assessment & Plan: Continue Agrylin. (7) Anemia Status: Chronic Assessment & Plan: He is followed by Hematology. He gets Aranesp monthly prn ( last was end of August). Also, getting B12 shots. (8) CAD (coronary artery disease) Status: Chronic Assessment & Plan: Continue chronic ASA and Plavix. Hold Pravastatin. (9) Crohn disease Status: Chronic Assessment & Plan: Continue Pentasa. (10) Leukocytosis Status: Chronic Exam Sepsis Risk: No Definite Risk Problem Qualifiers (1) Type 2 diabetes mellitus: Diabetes mellitus emergency medcl emt insulin use: with emergency medcl emt use Diabetes mellitus complication status: with kidney complications Diabetes mellitus complication detail: with chronic kidney disease Chronic kidney disease stage: stage 4 ( severe) Qualified Codes: E11.22 - Type 2 diabetes mellitus with diabetic chronic kidney disease; N18.4 - Chronic kidney disease, stage 4 (severe); Z79.4 - mobile battery technician (current) use of insulin (2) CAD (coronary artery disease): Coronary Disease-Associated Artery/Lesion type: unspecified vessel or lesion type [place] vs. transplanted heart: [place] heart Associated angina: without angina Qualified Codes: I25.10 - Atherosclerotic heart disease of [place] coronary artery without angina pectoris (3) Crohn disease: Gastrointestinal tract location: small intestine (4) Leukocytosis: Leukocytosis type: unspecified Qualified Codes: D72.829 - Elevated white blood cell count, unspecified SALVADOR TILLMAN MD Oct 08, 2017 13:48
[2017-10-08 15:26] VITALS: BP 159/62
--- NOTE | 2017-10-08 15:47 | RADIOLOGY IMAGING REPORT ---
FACILITY: [facility] - [place] PATIENT NAME: Wei Osman : 1945 MR: [id number] V: [id number] EXAM DATE: ORDERING PHYSICIAN: WES RUTH TECHNOLOGIST: Location: [facility] - [place] Patient: Wei Osman : 1945 Visit/Account:[id number] Date of Sevice: 10/08/2017 Exam type: SMALL BOWEL SERIES History: SBO, Crohns. WATER SOLUBLE CONTRAST ONLY Comparison: CT abdomen and pelvis October 07, 2017. Findings: The patient received Gastrografin suspension to swallow which was followed throughout the nondilated small bowel to the colon. The contrast reached the right-sided the colon in 30 minutes. There is no significant narrowing identified at the distal ileal anastomosis. The fluoroscopy dose area product was 141.6 micro-Brown per meter squared IMPRESSION: 1. No evidence of small bowel obstruction at this time Report Dictated By: Kala Choe MD at 10/08/2017 3:41 PM Report E-Signed By: Kala Choe MD at 10/08/2017 3:44 PM WSN:[email or web address]
[2017-10-08 19:33] VITALS: BP 148/57
[2017-10-08] MEDS ORDERED: ACETAMINOPHEN 325 MG TAB PO PRN (22:10)
[2017-10-09 05:36] LABS: PLATELET COUNT, AUTOMATED 262 K/uL (150-450)
[2017-10-09 05:53] VITALS: BP 142/59
[2017-10-09] MEDS: LEVOTHYROXINE SOD 0.025 MG TAB PO SCH (05:56)
[2017-10-09 07:24] VITALS: BP 143/61
[2017-10-09] MEDS: SODIUM BICARBONATE 650 MG TAB PO SCH (08:22)
[2017-10-09] MEDS: DILTIAZEM CD 120 MG CAPCR PO SCH (08:22)
[2017-10-09] MEDS: ASPIRIN 81 MG CHEW PO SCH (08:22)
[2017-10-09] MEDS: hydrALAZINE HCL 25 MG TAB PO SCH (08:22)
[2017-10-09] MEDS: CLOPIDOGREL BISULFATE 75MG TAB PO SCH (08:22)
[2017-10-09] MEDS: PENTOXIFYLLINE 400 MG PO SCH (08:22)
[2017-10-09] MEDS: MESALAMINE 250 MG CAPCR PO SCH (08:23)
[2017-10-09] MEDS: ANAGRELIDE HCL 0.5 MG PO SCH (08:23)
[2017-10-09] MEDS ORDERED: INSU100V24 SQ (08:40)
--- NOTE | 2017-10-09 08:51 | Hospitalist Depart ---
Discharge Summary Reason for Hosp/Final Diag: (1) Small bowel obstruction Status: Acute Hospital Course & Plan: He presented with abdominal pain and vomiting a couple hours before going to the ER. He had evidence of a distal SBO at the ileocolic anastomosis site. He is now comfortable and has a benign abdominal exam. Dr. Ruth did see him and ordered UGI with SBFT, which shows contrast in his rectum with no evidence of ongoing obstruction. He was started on a clear liquids diet and advanced as he tolerated. He did very well. He was able to eat and drink without difficulties. He was felt to be stable for discharge. He will follow up with his PCP (Tamie PATINO) and Dr. Ruth as needed. (2) Hypoglycemia Status: Acute Hospital Course & Plan: Secondary to Lantus and poor intake. He was initially placed on IV D5NS and we held his usual Lantus of 25 units qAM and 4 units qPM. We watched his glucoses closely and they did stabilize. He will resume his usual insulin regimen now that he is eating normally. (3) CKD (chronic kidney disease) stage 4, GFR 15-29 ml/min Status: Chronic Hospital Course & Plan: Baseline creatinine is 4.2-5.3. His creatinine at the time of discharge is 4.6. He has a maturing fistula in his right arm (placed ). He will follow up with his thermal intelligence analyst as planned in approximately 1-2 months. (4) Type 2 diabetes mellitus Status: Chronic Hospital Course & Plan: See above. (5) HTN (hypertension) Status: Chronic Hospital Course & Plan: Continue diltiazem, hydralazine, Lasix. (6) Essential thrombocytosis Status: Chronic Hospital Course & Plan: Continue Agrylin. (7) Anemia Status: Chronic Hospital Course & Plan: He is followed by Hematology. He gets Aranesp monthly prn (last was end of August). Also, getting B12 shots. (8) CAD (coronary artery disease) Status: Chronic Hospital Course & Plan: Continue chronic ASA, Plavix, Pravastatin. (9) Crohn disease Status: Chronic Hospital Course & Plan: Continue Pentasa. (10) Leukocytosis Status: Chronic Hospital Course & Plan: Chronic. Essentially unchanged. Departure Weight (Pounds): 161 Weight (Ounces): 8.0 Result Diagram: 10/09/17 0500 10/09/17 0500 Item Value Date Time White Blood Count 25.5 k/uL H 10/07/172048 Hemoglobin 13.3 g/dL L 10/07/172048 Hematocrit 40.6 % L 10/07/172048 Platelet Count 497 K/uL H 10/07/172048 Sodium Level 140 mmol/L 10/07/172048 Potassium Level 4.1 mmol/L 10/07/172048 Chloride Level 100 mmol/L 10/07/172048 Carbon Dioxide Level 24 mmol/L 10/07/172048 Blood Urea Nitrogen 60 mg/dl H 10/07/172048 Creatinine 5.10 mg/dl *H 10/07/172048 Glomerular Filtration Rate Calc 11.2 10/07/172048 Random Glucose 46 mg/dl *L 10/07/172048 Calcium Level 10.0 mg/dl 10/07/172048 Total Bilirubin 0.5 mg/dl 10/07/172048 Aspartate Amino Transf (AST/SGOT) 21 U/L 10/07/172048 Alanine Aminotransferase (ALT/SGPT) 31 U/L 10/07/17 204 Alkaline Phosphatase 157 U/L H 10/07/172048 Total Protein 7.3 gm/dl 10/07/172048 Albumin 4.3 g/dl 10/07/172048 Amylase Level 89 U/L 10/07/17 2049 Lipase 130 U/L 10/07/172048 Lactate 1.5 mmol/L 10/07/17 204 Urine Mucus None /HPF 10/07/172034 Urine Bacteria Negative /HPF 10/07/172034 Urine Squamous Epithelial Cells None /LPF 10/07/172034 Urine WBC 2 /HPF 10/07/172034 Urine RBC 1 /HPF 10/07/172034 Urine Leukocyte Esterase Negative 10/07/172034 Urine Urobilinogen Negative mg/dL 10/07/172034 Urine Bilirubin Negative 10/07/172034 Urine Nitrite Negative 10/07/172034 Urine Blood Negative 10/07/172034 Urine Ketones Negative mg/dL 10/07/172034 Urine Glucose (UA) 50 mg/dL H 10/07/172034 Urine Protein 500 mg/dL 10/07/172034 Urine Specific [place] 1.015 10/07/172034 Urine pH 7.0 pH 10/07/172034 Urine Clarity Clear 10/07/172034 Urine Color Yellow 10/07/172034 Imaging PATIENT NAME: Wei Osman : 1945 MR: [id number] V: [id number] EXAM DATE: ORDERING PHYSICIAN: WES RUTH TECHNOLOGIST: Location: [facility] - [place] Patient: Wei Osman : 1945 Visit/Account:[id number] Date of Sevice: 10/08/2017 Exam type: SMALL BOWEL SERIES History: SBO, Crohns. WATER SOLUBLE CONTRAST ONLY Comparison: CT abdomen and pelvis October 07, 2017. Findings: The patient received Gastrografin suspension to swallow which was followed throughout the nondilated small bowel to the colon. The contrast reached the right-sided the colon in 30 minutes. There is no significant narrowing identified at the distal ileal anastomosis. The fluoroscopy dose area product was 141.6 micro-Brown per meter squared IMPRESSION: 1. No evidence of small bowel obstruction at this time Report Dictated By: Kala Choe MD at 10/08/2017 3:41 PM Report E-Signed By: Kala Choe MD at 10/08/2017 3:44 PM WSN:[email or web address] PATIENT NAME: Wei Osman : 1945 MR: [id number] V: [id number] EXAM DATE: ORDERING PHYSICIAN: GATITO MURRAY TECHNOLOGIST: Location: [facility] - [place] Patient: Wei Osman : 1945 Visit/Account:[id number] Date of Sevice: 10/07/2017 EXAMINATION: CT abdomen without IV contrast CT pelvis without IV contrast HISTORY: Abdominal pain. TECHNIQUE: Spiral scan was through the abdomen and pelvis without intravenous contrast. Sagittal and coronal reformatted images are also submitted. One of the following dose optimization techniques was utilized in the performance of this exam: Automated exposure control; adjustment of the mA and/ or kV according to the patient's size; or use of an iterative reconstruction technique. Specific details can be referenced in the facility's radiology CT exam operational policy. COMPARISON: 08/08/2017. FINDINGS: Lower chest: Trace right pleural effusion. Please note that without intravenous contrast, sensitivity to detection of parenchymal disease is limited. Liver / biliary: Cholelithiasis without evidence of acute cholecystitis. Otherwise negative. Pancreas: Negative. Spleen: Negative. Adrenal glands: Negative. Kidneys: Negative. Pelvic structures: Mildly enlarged prostate gland. Otherwise negative. Bowel: Mild sigmoid diverticulosis without evidence of acute diverticulitis. Ileocolic anastomosis. Mildly diffusely dilated small bowel with no transition point measuring up to 4.3 cm. No bowel wall thickening or pneumatosis. Peritoneum / retroperitoneum / mesenteries: No free fluid or free air. Vessels: Moderate aortoiliac calcification without aneurysm. Musculoskeletal / Body wall: Mild multilevel degenerative disc disease and facet hypertrophy in the thoracolumbar spine Lymph node assessment: Negative. IMPRESSION: 1. Mildly diffusely dilated small bowel leading up to the ileocolic anastomosis measuring up to 4.3 cm in diameter suspicious for distal small bowel obstruction. 2. Otherwise no acute abnormality in the abdomen or pelvis. 3. Cholelithiasis without evidence of acute cholecystitis. 4. Trace right pleural effusion. 5. Mildly enlarged prostate gland. Results were called to GATITO MURRAY at 10/07/2017 11:39 PM. Report Dictated By: Anthony García MD at 10/07/2017 11:25 PM Report E-Signed By: Anthony García MD at 10/07/2017 11:44 PM WSN:[id number] Condition: Improved Discharge: Home Time Spent: > 30 min Discharge Instructions Home Meds Active Scripts Insulin Lispro (HUMALOG) 100 Unit/1 Ml Vial, 0 SQ 1-3XD Y for prn, #1 VIAL as per sliding scale Prov:SALVADOR TILLMAN MD 10/09/17 Ondansetron (ZOFRAN ODT) 4 Mg Tab.rapdis, 4 MG PO Q4-6H Y for NAUSEA/VOMITING, # 15 Prov:ALESHA GAMINO DO 08/08/17 [B12] No Conflict Check, 1000 MCG IM Monthly, #22 MCG 1 Refill Inject 1000mcg monthly Prov:SATHISH HENRY PENSIONS RETIREMENT PLAN SPECIALIST-BC, ONC 04/06/16 Reported Medications Fluticasone Prop 50 Mcg Ns (FLONASE 50 MCG NS) 16 Gm [place].susp, 1 SPRAY NS BID , BOT 10/08/17 Multivitamin (MULTIVITAMINS) 1 Each Capsule, 1 EACH PO QDAY, CAPSULE 10/08/17 Insulin Glargine (LANTUS) 100 Unit/Ml Soln, 4 UNIT SUBQ QPM, ML 08/08/17 Insulin Glargine (LANTUS) 100 Unit/Ml Soln, 28 UNIT SUBQ QAM, ML 08/08/17 Calcitriol (CALCITRIOL) 0.25 Mcg Cap, 0.25 MCG FT DAILY, CAP 07/09/17 Loperamide Hcl (LOPERAMIDE) 5 Gm Powder, 12 MG PO DAILY 07/09/17 Folic Acid (FOLIC ACID) 1 Mg Tablet, 1 MG PO QDAY, TAB 07/09/17 Mesalamine (PENTASA) 250 Mg Capsule.er, 500 MG PO BID 07/09/17 Sodium Bicarbonate (SODIUM BICARBONATE) 650 Mg Tablet, 1950 MG PO BID 05/22/16 Furosemide (LASIX) 40 Mg Tablet, 40 MG PO QDAY, TAB 10/15/15 Ferrous Sulfate, Dried (IRON) 159 Mg Tablet.er, 130 MG PO BID twice daily 06/22/15 Vit A,C & E/Lutein/Minerals (OCUVITE TABLET) 1 Each Tablet, 1 EACH PO DAILY 06/22/15 Pentoxifylline (PENTOXIFYLLINE) 400 Mg Tabsr, 400 MG PO BID 03/13/15 Hydralazine Hcl (HYDRALAZINE HCL) 50 Mg Tablet, 50 MG PO TID, TAB 03/13/15 Dicyclomine Hcl (DICYCLOMINE HCL) 20 Mg Tablet, 20 MG PO TID 01/23/15 Levothyroxine Sodium (LEVOTHYROXINE SODIUM) 25 Mcg Tablet, 25 MCG PO QDAY 07/09/13 Pravastatin Sodium (PRAVASTATIN SODIUM) 20 Mg Tablet, 20 MG PO QDAY 07/09/13 Diltiazem Hcl (DILTIAZEM 24HR CD) 120 Mg Cap.er.24h, 120 MG PO BID 07/09/13 Clopidogrel Bisulfate (CLOPIDOGREL) 75 Mg Tablet, 1 TAB PO QDAY, TAB TAKE ONE TABLET BY MOUTH EVERY DAY 07/09/13 Aspirin (Adult Aspirin) 81 Mg Tab.chew, 81 MG PO DAILY 03/22/07 Anagrelide Hcl (Agrylin) 0.5 Mg Capsule, 0.5 MG PO DAILY 03/22/07 Diet: Diabetic Activity: As Tolerated Special Instructions: Follow up with Tamie PATINO in next 1-2 weeks or sooner if any problems. Follow up with nephrology as planned. Copies to: MEENAKSHI JENKINS Venous Thromboembolism Antithrombotics Is Pt On Any Antithrombotics?: No Problem Qualifiers (1) Type 2 diabetes mellitus: Diabetes mellitus prison insulin use: with prison use Diabetes mellitus complication status: with kidney complications Diabetes mellitus complication detail: with chronic kidney disease Chronic kidney disease stage: stage 4 ( severe) Qualified Codes: E11.22 - Type 2 diabetes mellitus with diabetic chronic kidney disease; N18.4 - Chronic kidney disease, stage 4 (severe); Z79.4 - emt intermediate (current) use of insulin (2) CAD (coronary artery disease): Coronary Disease-Associated Artery/Lesion type: unspecified vessel or lesion type [place] vs. transplanted heart: [place] heart Associated angina: without angina Qualified Codes: I25.10 - Atherosclerotic heart disease of [place] coronary artery without angina pectoris (3) Crohn disease: Gastrointestinal tract location: small intestine (4) Leukocytosis: Leukocytosis type: unspecified Qualified Codes: D72.829 - Elevated white blood cell count, unspecified SALVADOR TILLMAN MD Oct 09, 2017 08:51
== END 2017-10-09 11:00 | disposition home or self-care (01) | DRG 389 ==
LOC: ER 20:47 → MED 10-08 02:44
PROVIDERS: ADMIT Internal Medicine; ATTEND Internal Medicine
DX: K56.609 Unspecified intestinal obstruction, unspecified as to partial versus complete obstruction (principal); N18.4 Chronic kidney disease, stage 4 (severe); K50.90 Crohn's disease, unspecified, without complications; I13.0 Hypertensive heart and chronic kidney disease with heart failure and stage 1 through stage 4 chronic kidney disease, or unspecified chronic kidney disease; E11.22 Type 2 diabetes mellitus with diabetic chronic kidney disease; E11.649 Type 2 diabetes mellitus with hypoglycemia without coma; D51.0 Vitamin B12 deficiency anemia due to intrinsic factor deficiency; I50.812 Chronic right heart failure; I25.10 Atherosclerotic heart disease of native coronary artery without angina pectoris; D72.829 Elevated white blood cell count, unspecified; E78.5 Hyperlipidemia, unspecified; K21.9 Gastro-esophageal reflux disease without esophagitis; E11.42 Type 2 diabetes mellitus with diabetic polyneuropathy; E03.9 Hypothyroidism, unspecified; L40.8 Other psoriasis; T38.3X5A Adverse effect of insulin and oral hypoglycemic [antidiabetic] drugs, initial encounter; K27.7 Chronic peptic ulcer, site unspecified, without hemorrhage or perforation; D47.3 Essential (hemorrhagic) thrombocythemia; I25.2 Old myocardial infarction; Z79.4 Long term (current) use of insulin; Z88.8 Allergy status to other drugs, medicaments and biological substances; Z85.828 Personal history of other malignant neoplasm of skin; Z87.891 Personal history of nicotine dependence; Z86.73 Personal history of transient ischemic attack (TIA), and cerebral infarction without residual deficits
CPT/HCPCS: 36415; 36416; 74176; 74250; 81001; 82040; 82150; 82247; 82310; 82374; 82435; 82565; 82947; 82948; 83605; 83690; 84075; 84132; 84155; 84295; 84450; 84460; 84520; 85025; 96361; 96374; 96375; 99285; C9113; J2270; J7042

== ENCOUNTER 2017-10-12 20:39 | Emergency (ER) | payer MEDICARE, BC ==
[2017-02-18 08:45] VITALS: Wt 76.7 kg
[~2017-10-12 20:39] MED LIST changes: +FLUT16SP19 NS; +MULT1CAP59 PO
--- NOTE | 2017-10-12 20:55 | ER Report ---
History and Physical Time Seen By MD: 20:55 HPI/ROS CHIEF COMPLAINT: Fever, chills and cough HISTORY OF PRESENT ILLNESS: 71-year-old male recently discharged from hospital on 10/09/17. Patient was in for possible small bowel obstruction. He has a history of Crohn's disease. He came home on Wednesday. His was sick with a upper respiratory infection. He thinks he contracted it. On Wednesday, 24 hours ago. This afternoon he lay down for nap and woke up with Rigor and chills and feeling ill this evening. He took his temperature on multiple occasions. He noted 101, then 102, then 103, eventually. Patient's concerned that his immune system is suppressed in treatment of his Crohn's disease. Patient notes a cough, primarily productive of clear sputum. Patient denies dysuria, frequency or hematuria. Patient notes normal bowel function and normal appetite. REVIEW OF SYSTEMS: Respiratory: As above Cardiovascular: No chest pain, no palpitations. Gastrointestinal: No vomiting, no abdominal pain. Musculoskeletal: No back pain. Allergies: Coded Allergies: codeine (Verified Allergy, Unknown, 10/12/17) Iodinated Contrast- Oral and IV Dye (Verified Adverse Reaction, Mild, 10/12) Home Meds Active Scripts Oseltamivir Phosphate (TAMIFLU) 75 Mg Cap, 75 MG FT BID for influenza treatment , #10 CAP Prov:ALESHA GAMINO DO 10/12/17 Promethazine Hcl (PROMETHAZINE HCL) 25 Mg Tablet, 25 MG PO Q4H Y for NAUSEA/ VOMITING, #12 TAB Prov:ALESHA GAMINO DO 10/12/17 Oxycodone Hcl/Acetaminophen (PERCOCET 5-325 MG TABLET) 1 Each Tablet, 1 EACH PO Q4-6H Y for pain or cough suppression, #12 Prov:ALESHA GAMINO DO 10/12/17 Insulin Lispro (HUMALOG) 100 Unit/1 Ml Vial, 0 SQ 1-3XD Y for prn, #1 VIAL as per sliding scale Prov:SALVADOR TILLMAN MD 10/09/17 Ondansetron (ZOFRAN ODT) 4 Mg Tab.rapdis, 4 MG PO Q4-6H Y for NAUSEA/VOMITING, # 15 Prov:ALESHA GAMINO DO 08/08/17 [B12] No Conflict Check, 1000 MCG IM Monthly, #22 MCG 1 Refill Inject 1000mcg monthly Prov:SATHISH HENRY Maulik [employer], ONC 04/06/16 Reported Medications Azithromycin 250 Mg Tab (AZITHROMYCIN 250 MG TAB) 250 Mg Tablet, 1 TAB PO 10/12/17 Albuterol Sulfate 90 Mcg/Act (PROAIR HFA 90 MCG/ACT) 8.5 Gm Hfa.aer.ad, 1-2 PUFF IH 3-4XD, INHALER 10/12/17 Fluticasone Prop 50 Mcg Ns (FLONASE 50 MCG NS) 16 Gm [employer].susp, 1 SPRAY NS BID , BOT 10/08/17 Multivitamin (MULTIVITAMINS) 1 Each Capsule, 1 EACH PO QDAY, CAPSULE 10/08/17 Insulin Glargine (LANTUS) 100 Unit/Ml Soln, 4 UNIT SUBQ QPM, ML 08/08/17 Insulin Glargine (LANTUS) 100 Unit/Ml Soln, 28 UNIT SUBQ QAM, ML 08/08/17 Calcitriol (CALCITRIOL) 0.25 Mcg Cap, 0.25 MCG FT DAILY, CAP 07/09/17 Loperamide Hcl (LOPERAMIDE) 5 Gm Powder, 12 MG PO DAILY 07/09/17 Folic Acid (FOLIC ACID) 1 Mg Tablet, 1 MG PO QDAY, TAB 07/09/17 Mesalamine (PENTASA) 250 Mg Capsule.er, 500 MG PO BID 07/09/17 Sodium Bicarbonate (SODIUM BICARBONATE) 650 Mg Tablet, 1950 MG PO BID 05/22/16 Furosemide (LASIX) 40 Mg Tablet, 40 MG PO QDAY, TAB 10/15/15 Ferrous Sulfate, Dried (IRON) 159 Mg Tablet.er, 130 MG PO BID twice daily 06/22/15 Vit A,C & E/Lutein/Minerals (OCUVITE TABLET) 1 Each Tablet, 1 EACH PO DAILY 06/22/15 Pentoxifylline (PENTOXIFYLLINE) 400 Mg Tabsr, 400 MG PO BID 03/13/15 Hydralazine Hcl (HYDRALAZINE HCL) 50 Mg Tablet, 50 MG PO TID, TAB 03/13/15 Dicyclomine Hcl (DICYCLOMINE HCL) 20 Mg Tablet, 20 MG PO TID 01/23/15 Levothyroxine Sodium (LEVOTHYROXINE SODIUM) 25 Mcg Tablet, 25 MCG PO QDAY 07/09/13 Pravastatin Sodium (PRAVASTATIN SODIUM) 20 Mg Tablet, 20 MG PO QDAY 07/09/13 Diltiazem Hcl (DILTIAZEM 24HR CD) 120 Mg Cap.er.24h, 120 MG PO BID 07/09/13 Clopidogrel Bisulfate (CLOPIDOGREL) 75 Mg Tablet, 1 TAB PO QDAY, TAB TAKE ONE TABLET BY MOUTH EVERY DAY 07/09/13 Aspirin (Adult Aspirin) 81 Mg Tab.chew, 81 MG PO DAILY 03/22/07 Anagrelide Hcl (Agrylin) 0.5 Mg Capsule, 0.5 MG PO DAILY 03/22/07 Past Medical/Surgical History PAST MEDICAL HISTORY 1. Essential thrombocytosis diagnosed in 1990. 2. Crohn disease diagnosed in 2001. 3. High PSA with negative biopsies in 2003. 4. TIA in 2002. 5. CVA with multiple infarcts on MRI in 2001. 6. Anemia since 2000. 7. Duodenal ulcer in 1989. 8. Diabetes mellitus in 1969. 9. Hyperlipidemia. 10. Hypertension. PAST SURGICAL HISTORY 1. 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 2. Left knee ACL repair in 1976. Hx Smoking: No (CHEWS 1 CAN Q 3 DAYS FOR 40 YEARS. SMOKED AGE 18 TO 23) Reviewed Nurses Notes: Yes Old Medical Records Reviewed: Yes Hx Smoking: No (CHEWS 1 CAN Q 3 DAYS FOR 40 YEARS. SMOKED AGE 18 TO 23) Smoking Status: Never Smoker Exposure to Second Hand Smoke?: No Hx Substance Use Disorder: No Hx Alcohol Use: Yes Constitutional Vital Sign - Last 24 Hours 10/12/17 10/12/17 10/12/17 10/12/17 20:48 21:00 21:09 21:54 Temp 99.9 Pulse 109 99 97 Resp 20 B/P (MAP) 176/86 167/67 (100) Pulse Ox 91 91 89 O2 Delivery Room Air 10/12/17 10/12/17 10/12/17 10/12/17 22:08 22:09 22:29 22:30 Pulse 94 91 Resp 16 B/P (MAP) 168/68 (101) 171/72 (105) Pulse Ox 90 88 Physical Exam Vital signs stable, temp 99.9, pulse ox normal General Appearance: The patient is alert, has no immediate need for airway protection and no current signs of toxicity. Mild distress HEENT: Pupils equal and round no injection. TMs normal, oropharynx with mild erythema, no exudate Respiratory: Chest is non tender, lungs are clear to auscultation. No wheezing or rails Cardiac: regular rate and rhythm Gastrointestinal: Abdomen is soft and non tender, no masses, bowel sounds normal. Musculoskeletal: Neck: Neck is supple and non tender. No meningismus, no lymphadenopathy Extremities have full range of motion and are non tender. No edema, no calf tenderness Skin: No rashes or lesions. DIFFERENTIAL DIAGNOSIS: After history and physical exam differential diagnosis was considered for adult fever including but not limited to viral syndromes including influenza, urinary tract infection, pneumonia and sepsis. Medical Decision Making Data Points Result Diagram: 10/12/17214510/12/172145 Laboratory Hematology Test 10/12/17 20:48 10/12/17 21:30 10/12/17 21:46 Urine Color Yellow Urine Clarity Slightly-cloudy Urine pH 6.0 pH (4.8-9.5) Urine Specific [place] 1.018 Urine Protein 500 mg/dL (NEGATIVE) Urine Glucose (UA) 150 mg/dL (NEGATIVE) Urine Ketones Negative mg/dL (NEGATIVE) Urine Blood Negative (NEGATIVE) Urine Nitrite Negative (NEGATIVE) Urine Bilirubin Negative (NEGATIVE) Urine Urobilinogen Negative mg/dL (0.2-1.9) Urine Leukocyte Esterase Negative (NEGATIVE) Urine RBC 1 /HPF (0-2/HPF) Urine WBC 4 /HPF (0-5/HPF) Urine Squamous Epithelial Cells Few /LPF (</=FEW) Urine Bacteria Negative /HPF (NONE-FEW) Urine Hyaline Casts Few /LPF (NONE-FEW) Urine Mucus None /HPF (NONE-FEW) Influenza Virus Type A (PCR) Negative (NEGATIVE) Influenza Virus Type B (PCR) Positive (NEGATIVE) Group A Streptococcus Screen Negative (NEGATIVE) Red Blood Count 4.25 M/uL (4.00-5.60) Mean Corpuscular Volume 83.9 fL (80.0-96.0) Mean Corpuscular Hemoglobin 27.5 pg (26.0-33.0) Mean Corpuscular Hemoglobin Concent 32.8 g/dL (32.0-36.0) Red Cell Distribution Width 18.4 % (11.5-14.5) Mean Platelet Volume 9.0 fL (7.2-11.1) Neutrophils (%) (Auto) 93.4 % (39.4-72.5) Lymphocytes (%) (Auto) 2.3 % (17.6-49.6) Monocytes (%) (Auto) 3.2 % (4.1-12.4) Eosinophils (%) (Auto) 0.4 % (0.4-6.7) Basophils (%) (Auto) 0.7 % (0.3-1.4) Nucleated RBC Relative Count (auto) 0.0 /100WBC Neutrophils # (Auto) 24.0 K/uL (2.0-7.4) Lymphocytes # (Auto) 0.6 K/uL (1.3-3.6) Monocytes # (Auto) 0.8 K/uL (0.3-1.0) Eosinophils # (Auto) 0.1 K/uL (0.0-0.5) Basophils # (Auto) 0.2 K/uL (0.0-0.1) Nucleated RBC Absolute Count (auto) 0.00 K/uL Peripheral Blood Smear Yes Y/N Erythrocyte Sedimentation Rate 42 mm/HOUR (0-20) Sodium Level 135 mmol/L (137-145) Potassium Level 3.9 mmol/L (3.5-5.0) Chloride Level 100 mmol/L (98-107) Carbon Dioxide Level 23 mmol/L (22-30) Blood Urea Nitrogen 39 mg/dl (9-21) Creatinine 4.60 mg/dl (0.66-1.25) Glomerular Filtration Rate Calc 12.7 Random Glucose 120 mg/dl (75-110) Lactate 0.9 mmol/L (0.7-2.1) Calcium Level 8.7 mg/dl (8.4-10.2) Total Bilirubin 0.4 mg/dl (0.2-1.3) Aspartate Amino Transf (AST/SGOT) 19 U/L (0-35) Alanine Aminotransferase (ALT/SGPT) 28 U/L (0-56) Alkaline Phosphatase 121 U/L (0-126) C-Reactive Protein 2.4 mg/dl (<1.0) Total Protein 6.5 gm/dl (6.3-8.2) Albumin 3.6 g/dl (3.5-5.0) Chemistry Test 10/12/17 20:48 10/12/17 21:30 10/12/17 21:46 Urine Color Yellow Urine Clarity Slightly-cloudy Urine pH 6.0 pH (4.8-9.5) Urine Specific [place] 1.018 Urine Protein 500 mg/dL (NEGATIVE) Urine Glucose (UA) 150 mg/dL (NEGATIVE) Urine Ketones Negative mg/dL (NEGATIVE) Urine Blood Negative (NEGATIVE) Urine Nitrite Negative (NEGATIVE) Urine Bilirubin Negative (NEGATIVE) Urine Urobilinogen Negative mg/dL (0.2-1.9) Urine Leukocyte Esterase Negative (NEGATIVE) Urine RBC 1 /HPF (0-2/HPF) Urine WBC 4 /HPF (0-5/HPF) Urine Squamous Epithelial Cells Few /LPF (</=FEW) Urine Bacteria Negative /HPF (NONE-FEW) Urine Hyaline Casts Few /LPF (NONE-FEW) Urine Mucus None /HPF (NONE-FEW) Influenza Virus Type A (PCR) Negative (NEGATIVE) Influenza Virus Type B (PCR) Positive (NEGATIVE) Group A Streptococcus Screen Negative (NEGATIVE) White Blood Count 25.7 k/uL (4.5-11.0) Red Blood Count 4.25 M/uL (4.00-5.60) Hemoglobin 11.7 g/dL (14.0-18.0) Hematocrit 35.6 % (42.0-52.0) Mean Corpuscular Volume 83.9 fL (80.0-96.0) Mean Corpuscular Hemoglobin 27.5 pg (26.0-33.0) Mean Corpuscular Hemoglobin Concent 32.8 g/dL (32.0-36.0) Red Cell Distribution Width 18.4 % (11.5-14.5) Platelet Count 382 K/uL (150-450) Mean Platelet Volume 9.0 fL (7.2-11.1) Neutrophils (%) (Auto) 93.4 % (39.4-72.5) Lymphocytes (%) (Auto) 2.3 % (17.6-49.6) Monocytes (%) (Auto) 3.2 % (4.1-12.4) Eosinophils (%) (Auto) 0.4 % (0.4-6.7) Basophils (%) (Auto) 0.7 % (0.3-1.4) Nucleated RBC Relative Count (auto) 0.0 /100WBC Neutrophils # (Auto) 24.0 K/uL (2.0-7.4) Lymphocytes # (Auto) 0.6 K/uL (1.3-3.6) Monocytes # (Auto) 0.8 K/uL (0.3-1.0) Eosinophils # (Auto) 0.1 K/uL (0.0-0.5) Basophils # (Auto) 0.2 K/uL (0.0-0.1) Nucleated RBC Absolute Count (auto) 0.00 K/uL Peripheral Blood Smear Yes Y/N Erythrocyte Sedimentation Rate 42 mm/HOUR (0-20) Glomerular Filtration Rate Calc 12.7 Lactate 0.9 mmol/L (0.7-2.1) Calcium Level 8.7 mg/dl (8.4-10.2) Total Bilirubin 0.4 mg/dl (0.2-1.3) Aspartate Amino Transf (AST/SGOT) 19 U/L (0-35) Alanine Aminotransferase (ALT/SGPT) 28 U/L (0-56) Alkaline Phosphatase 121 U/L (0-126) C-Reactive Protein 2.4 mg/dl (<1.0) Total Protein 6.5 gm/dl (6.3-8.2) Albumin 3.6 g/dl (3.5-5.0) Urinalysis Test 10/12/17 20:48 Urine Color Yellow Urine Clarity Slightly-cloudy Urine pH 6.0 pH (4.8-9.5) Urine Specific [place] 1.018 Urine Protein 500 mg/dL (NEGATIVE) Urine Glucose (UA) 150 mg/dL (NEGATIVE) Urine Ketones Negative mg/dL (NEGATIVE) Urine Blood Negative (NEGATIVE) Urine Nitrite Negative (NEGATIVE) Urine Bilirubin Negative (NEGATIVE) Urine Urobilinogen Negative mg/dL (0.2-1.9) Urine Leukocyte Esterase Negative (NEGATIVE) Urine RBC 1 /HPF (0-2/HPF) Urine WBC 4 /HPF (0-5/HPF) Urine Squamous Epithelial Cells Few /LPF (</=FEW) Urine Bacteria Negative /HPF (NONE-FEW) Urine Hyaline Casts Few /LPF (NONE-FEW) Urine Mucus None /HPF (NONE-FEW) EKG/Imaging Imaging X-ray: Two-view chest x-ray was obtained. I viewed the images myself on the PACS system. My interpretation of the images is: No infiltrate, no effusion, normal mediastinum., Comparison to previous chest x-ray dated 08/08/17, no significant change. The radiologist interpretation had no clinically significant variation from this interpretation. ED Course/Re-evaluation Clinical Indication for ER IV: Hydration, IV Access ED Course Patient was admitted to an examination room. H&P was done. The differential diagnoses was considered. On clinical examination. Patient has stable vital signs. He is mildly febrile at 99.9. He reported fever to 103 at home. He describes symptoms of a Rigor and subsequent spiked a fever. His has been sick with viral symptoms. Diagnostic evaluation is undertaken. Patient's white blood cell count is mildly elevated, but he has a chronically elevated white blood cell count. Diagnostic laboratory studies show a normal urinalysis , clear chest x-ray. Rapid influenza B returns positive. Patient will be treated with Tamiflu 75 mg by mouth twice a day for 5 days. Patient be given Phenergan and Percocet for symptomatically relief so that he can sleep and rest. He's advised to increase his fluid intake. Unfortunately, his chronic renal failure and is unable to take NSAIDs. Patient advised a low threshold return for any worsening. Decision to Disposition Date: Oct 12, 2017 Decision to Disposition Time: 22:19 Depart Departure Latest Vital Signs Vital Signs Date Time Temp Pulse Resp B/P (MAP) Pulse Ox O2 Delivery O2 Flow Rate FiO2 10/12/17 22:30 171/72 (105) 10/12/17 22:29 91 16 88 10/12/17 20:48 99.9 Room Air Impression: Primary Impression: Influenza B Additional Impressions: Fever Chronic renal failure, stage 4 (severe) Condition: Improved Disposition: HOME OR SELF-CARE Referrals: MEENAKSHI JENKINS (PCP) New Scripts Oseltamivir Phosphate (TAMIFLU) 75 Mg Cap 75 MG FT BID for influenza treatment, #10 CAP Prov: ALESHA GAMINO DO 10/12/17 Promethazine Hcl (PROMETHAZINE HCL) 25 Mg Tablet 25 MG PO Q4H Y for NAUSEA/VOMITING, #12 TAB Prov: ALESHA GAMINO DO 10/12/17 Oxycodone Hcl/Acetaminophen (PERCOCET 5-325 MG TABLET) 1 Each Tablet 1 EACH PO Q4-6H Y for pain or cough suppression, #12 Prov: ALESHA GAMINO DO 10/12/17 Patient Instructions: Influenza (ED) Additional Instructions: Follow-up with your primary care if unimproved in 2-3 days Return to the ER for any worsening Problem Qualifiers Additional Impressions: Fever Fever type: unspecified Qualified Codes: R50.9 - Fever, unspecified ALESHA GAMINO DO Oct 12, 2017 20:55
[2017-10-12] MEDS ORDERED: ALBU8.5H IH (21:01)
[2017-10-12] MEDS ORDERED: AZIT-18 PO (21:01)
[2017-10-12] MEDS ORDERED: NS(*) 0.9% 1000 ML BAG 1,000 ML IV ONE (21:08)
[2017-10-12 22:05] LABS: PLATELET COUNT, AUTOMATED 382 K/uL (150-450)
[2017-10-12 22:30] VITALS: BP 171/72
[2017-10-12] MEDS ORDERED: PROMETHAZINE HCL 25 MG TAB TH 2 TAB/BOTTLE PO ONE (22:30)
[2017-10-12] MEDS ORDERED: OSELTAMIVIR PHOS 75 MG CAP PO ONE (22:30)
--- NOTE | 2017-10-12 22:30 | RADIOLOGY IMAGING REPORT ---
FACILITY: [facility] PATIENT NAME: Wei Osman : 1945 MR: [id number] V: [id number] EXAM DATE: ORDERING PHYSICIAN: ALESHA GAMINO TECHNOLOGIST: Location: [facility] - [place] Patient: Wei Osman : 1945 Visit/Account:[id number] Date of Sevice: 10/12/2017 EXAMINATION: Chest radiographs 2 views HISTORY: Fever. COMPARISON: 02/17/2017. FINDINGS: PA and lateral views of the chest are submitted. Lines/tubes: None. Lungs/pleura: No focal consolidation or pleural effusion. Heart: Stable mild prominence of the cardiac silhouette. Mediastinum: Stable mediastinal contours. Bony structures/body wall: Negative. IMPRESSION: No radiographic evidence of acute cardiopulmonary disease. Report Dictated By: Luther Smith MD at 10/12/2017 10:22 PM Report E-Signed By: Luther Smith MD at 10/12/2017 10:25 PM WSN:[id number]
[2017-10-12] MEDS ORDERED: OXYC-865 PO (22:32)
[2017-10-12] MEDS ORDERED: PROM-110 PO (22:32)
[2017-10-12] MEDS ORDERED: OSE75 FT (22:32)
== END 2017-10-12 22:45 | disposition home or self-care (01) ==
LOC: ER 21:00
DX: J11.1 Influenza due to unidentified influenza virus with other respiratory manifestations (principal); N18.4 Chronic kidney disease, stage 4 (severe)
CPT/HCPCS: 71046; 81001; 83605; 85025; 85651; 86140; 87040; 87081; 87502; 87880; 96360; 99284; A9270; J7030; 82040; 82247; 82310; 82374; 82435; 82565; 82947; 84075; 84132; 84155; 84295; 84450; 84460; 84520

== ENCOUNTER → 2017-10-18 | Outpatient (CLI) | payer MEDICARE, BC ==
[2017-02-18 08:45] VITALS: BMI 24.5
[~2017-10-18] MED LIST changes: +AZIT-18 PO; +OSE75 FT; +OXYC-865 PO; +PROM-110 PO
--- NOTE | 2017-10-18 12:54 | RADIOLOGY IMAGING REPORT ---
FAC[place] [facility] [place] PATIENT NAME: Wei Osman : 1945 MR: [id number] V: [id number] EXAM DATE: ORDERING PHYSICIAN: MEENAKSHI JENKINS TECHNOLOGIST: Location: [facility] - [place] Patient: Wei Osman : 1945 Visit/Account:[id number] Date of Sevice: 10/18/2017 Chest with lateral, two views. HISTORY: Shortness of breath, cough, influenza last week. COMPARISON: 10/12/2017. Three images were obtained. Mild cardiomegaly is unchanged. The aortic knob is mildly calcified. P ulmonary vessels are mildly engorged. Moderate bronchial thickening is present bilaterally, unchange d. No focal pulmonary consolidation. The posterior costophrenic sulci are slightly obscured. The p leural surfaces are otherwise unremarkable. No acute bony abnormalities. IMPRESSION: Moderate bronchial thickening. Mild cardiomegaly and mild pulmonary vascular engorgement without brandy congestive heart failure. Report Dictated By: Parviz Chambers MD at 10/18/2017 12:46 PM Report E-Signed By: Parviz Chambers MD at 10/18/2017 12:50 PM [id number]:[email or web address]
== END ==
LOC: RAD 12:23
PROVIDERS: ATTEND Nurse Practitioner Family
DX: I51.7 Cardiomegaly (principal); I70.0 Atherosclerosis of aorta; R91.8 Other nonspecific abnormal finding of lung field
CPT/HCPCS: 71046

== ENCOUNTER → 2017-10-19 | Outpatient (REF) | payer MEDICARE, BC ==
[2017-02-18 08:45] VITALS: BMI 24.5
== END ==
LOC: LAB 11:50
PROVIDERS: ATTEND Nurse Practitioner Family
DX: K52.3 Indeterminate colitis (principal); R19.7 Diarrhea, unspecified

== ENCOUNTER → 2017-11-16 | Outpatient (CLI) | payer MEDICARE, BC ==
[2017-02-18 08:45] VITALS: BMI 24.5
[~2017-11-16] MED LIST changes: +PENT400T57 PO
[2017-11-16 14:43] LABS: PLATELET COUNT, AUTOMATED 322 K/uL (150-450)
== END ==
LOC: LAB 14:07
PROVIDERS: ATTEND Internal Medicine Nephrology
DX: N18.4 Chronic kidney disease, stage 4 (severe) (principal); I10 Essential (primary) hypertension; E11.22 Type 2 diabetes mellitus with diabetic chronic kidney disease; N25.81 Secondary hyperparathyroidism of renal origin; E87.2 Acidosis; D63.1 Anemia in chronic kidney disease; R80.9 Proteinuria, unspecified
CPT/HCPCS: 36415; 82040; 82310; 82374; 82435; 82565; 82947; 83970; 84100; 84132; 84295; 84520; 85025

== ENCOUNTER → 2017-12-21 | Outpatient (CLI) | payer MEDICARE, BC ==
[2017-02-18 08:45] VITALS: BMI 24.5
[2017-12-21 15:01] LABS: PLATELET COUNT, AUTOMATED 420 K/uL (150-450)
== END ==
LOC: LAB 14:07
PROVIDERS: ATTEND Internal Medicine Nephrology
DX: D63.1 Anemia in chronic kidney disease (principal); N18.4 Chronic kidney disease, stage 4 (severe)
CPT/HCPCS: 84100; 85025

== ENCOUNTER → 2017-12-21 | Outpatient (CLI) | payer MEDICARE, BC ==
[2017-02-18 08:45] VITALS: BMI 24.5
== END ==
LOC: LAB 14:03
PROVIDERS: ATTEND Nurse Practitioner Family
DX: I12.9 Hypertensive chronic kidney disease with stage 1 through stage 4 chronic kidney disease, or unspecified chronic kidney disease (principal); N18.3 Chronic kidney disease, stage 3 (moderate); E11.9 Type 2 diabetes mellitus without complications
CPT/HCPCS: 36415; 82040; 82247; 82310; 82374; 82435; 82565; 82947; 84075; 84132; 84155; 84295; 84439; 84443; 84450; 84460; 84480; 84520

== ENCOUNTER → 2017-12-23 | Outpatient (CLI) | payer MEDICARE, BC ==
[2017-02-18 08:45] VITALS: BMI 24.5
== END ==
LOC: LAB 08:44
PROVIDERS: ATTEND Internal Medicine Nephrology
DX: D62 Acute posthemorrhagic anemia (principal)
CPT/HCPCS: 36415; 82728; 83540; 83550

== ENCOUNTER → 2017-12-30 | Outpatient (REF) | payer MEDICARE, BC ==
[2017-02-18 08:45] VITALS: BMI 24.5
== END ==
LOC: ZZSENDIN 10:19
PROVIDERS: ATTEND Internal Medicine Nephrology
DX: D50.9 Iron deficiency anemia, unspecified (principal); D64.9 Anemia, unspecified; N18.5 Chronic kidney disease, stage 5
CPT/HCPCS: 82274

== ENCOUNTER 2018-01-06 10:17 | Outpatient (RCR) | payer MEDICARE, BC ==
[2017-02-18 08:45] VITALS: BMI 24.5
[2017-12-30] MEDS: NS(*) 0.9% 100 ML BAG 100 ML IVPB PRN ×2 (11:04→11:23)
[2017-12-30 11:34] VITALS: BP 148/85
[2017-12-30 11:48] VITALS: BP 146/64
[~2018-01-06 10:17] MED LIST changes: -CAL25 FT; +CAL25 PO; +DEXTROSE 5%(*) 100 ML BAG 100 ML IVPB PRN; +IRON SUCROSE 100 MG/5 ML VIAL IVP ONE; +LIDOCAINE/SOD BICARB 8.4% SYR ID PRN
[2018-01-06] MEDS ORDERED: IRON SUCROSE 100 MG/5 ML VIAL IVP ONE (11:25)
[2018-01-06] MEDS ORDERED: IRON SUCROSE 100 MG/5 ML VIAL IVP PRN (11:30)
[2018-01-06] MEDS: NS(*) 0.9% 100 ML BAG 100 ML IVPB PRN (11:38)
[2018-01-06 12:08] VITALS: BP 151/69
== END 2018-01-07 10:12 | disposition home or self-care (01) ==
LOC: SPU 10:17
PROVIDERS: ATTEND Internal Medicine Nephrology
DX: N18.5 Chronic kidney disease, stage 5 (principal); D50.9 Iron deficiency anemia, unspecified
CPT/HCPCS: 96365; 96374; J1756; J7050

== ENCOUNTER 2018-01-13 10:13 | Outpatient (RCR) | payer MEDICARE, BC ==
[2017-02-18 08:45] VITALS: BMI 24.5
[~2018-01-13 10:13] MED LIST changes: -IRON SUCROSE 100 MG/5 ML VIAL IVP ONE
[2018-01-13 10:20] VITALS: BP 135/56
[2018-01-13] MEDS ORDERED: IRON SUCROSE 100 MG/5 ML VIAL IVP PRN (10:30)
[2018-01-13] MEDS: NS(*) 0.9% 100 ML BAG 100 ML IVPB PRN ×2 (10:42→10:43)
== END 2018-01-14 12:34 | disposition home or self-care (01) ==
LOC: SPU 10:13
PROVIDERS: ATTEND Internal Medicine Nephrology
DX: N18.5 Chronic kidney disease, stage 5 (principal); D50.9 Iron deficiency anemia, unspecified; D64.9 Anemia, unspecified
CPT/HCPCS: 96374; J1756; J7050

== ENCOUNTER → 2018-01-18 | Outpatient (CLI) | payer MEDICARE, BC ==
[2017-02-18 08:45] VITALS: BMI 24.5
[~2018-01-18] MED LIST changes: -DEXTROSE 5%(*) 100 ML BAG 100 ML IVPB PRN; -LIDOCAINE/SOD BICARB 8.4% SYR ID PRN; +PENTA500PT PO
== END ==
LOC: LAB 13:19
PROVIDERS: ATTEND Internal Medicine Nephrology
DX: N18.4 Chronic kidney disease, stage 4 (severe) (principal)
CPT/HCPCS: 36415; 82040; 82310; 82374; 82435; 82565; 82947; 84100; 84132; 84295; 84520; 85027

== ENCOUNTER 2018-02-07 21:30 | Emergency (ER) | payer MEDICARE, BC ==
[2017-02-18 08:45] VITALS: Wt 81.0 kg
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
[2018-02-07] MEDS ORDERED: ALBUTEROL/IPRATROPIUM 3 ML NEB NEB ONE (21:50)
[2018-02-07 22:00] LABS: PLATELET COUNT, AUTOMATED 317 K/uL (150-450)
[2018-02-07] MEDS ORDERED: METOLAZONE 2.5 MG TAB PO ONE (22:30)
[2018-02-07] MEDS ORDERED: FUROSEMIDE 40 MG/4 ML VIAL IVP ONE (22:30)
--- NOTE | 2018-02-07 22:50 | RADIOLOGY IMAGING REPORT ---
FACILITY: [facility] PATIENT NAME: Wei Osman : 1945 MR: [id number] V: [id number] EXAM DATE: ORDERING PHYSICIAN: ALESHA GAMINO TECHNOLOGIST: Location: [facility] Patient: Wei Osman : 1945 Visit/Account:[id number] Date of Sevice: 02/07/2018 TWO VIEW CHEST 02/07/2018 9:46 PM. INDICATION: Respiratory distress. COMPARISON: 10/18/2017. FINDINGS: Lungs are hyperexpanded. There is increased interstitial prominence diffusely compared to the prior examination. No focal suspicious consolidation, pleural effusion or pneumothorax. Heart r emains mildly enlarged. IMPRESSION: 1. New pulmonary edema with unchanged mild cardiomegaly. 2. Chronic hyperexpansion. Report Dictated By: Kurtis Oscar MD at 02/07/2018 10:45 PM Report E-Signed By: Kurtis Oscar MD at 02/07/2018 10:47 PM WSN:[id number]
--- NOTE | 2018-02-07 22:52 | EKG ---
FACILITY: [facility] PATIENT NAME: JUDIT NAGY : [id number] MR: [id number] V: [id number] EXAM DATE: ORDERING PHYSICIAN: ALESHA GAMINO TECHNOLOGIST: SIMI Test Reason : SOB Blood Pressure : / mmHG Vent. Rate : 087 BPM Atrial Rate : 087 BPM P-R Int : 296 ms QRS Dur : 102 ms QT Int : 376 ms P-R-T Axes : 068 -65 025 degrees QTc Int : 452 ms Sinus rhythm with 1st degree AV block Left axis deviation Incomplete right bundle branch block Anterior infarct (cited on or before 17-FEB-2015) Abnormal ECG When compared with ECG of 22-MAY-2016 03:23, Incomplete right bundle branch block is now present Questionable change in initial forces of Septal leads Confirmed by JESE HASSAN ([id number]) on 02/08/2018 5:32:30 AM Referred By: Confirmed By:JESE HASSAN
[2018-02-07] MEDS ORDERED: ORPHENADRINE 60MG/2ML INJ IVP ONE (23:40)
[2018-02-08 01:00] VITALS: BP 171/75
== END 2018-02-08 01:40 | disposition short-term general hospital (02) ==
LOC: ER 22:08
DX: I50.9 Heart failure, unspecified (principal); E87.70 Fluid overload, unspecified; N18.6 End stage renal disease
CPT/HCPCS: 36416; 71046; 82948; 83880; 84484; 85025; 87040; 93005; 94640; 96374; 96375; 99285; A9270; J1940; J2360; J7620; 82040; 82247; 82310; 82374; 82435; 82565; 82947; 84075; 84132; 84155; 84295; 84450; 84460; 84520

== ENCOUNTER → 2018-02-08 | Outpatient (CLI) | payer MEDICARE, BC ==
[2017-02-18 08:45] VITALS: BMI 24.5
[~2018-02-08] MED LIST changes: +CALC-488 PO; +DILT-102 PO; +DILT-106 PO; +LOPE-111 PO; +NEPH PO
== END ==
LOC: AMB 01:20
PROVIDERS: ATTEND Nurse Practitioner
DX: I50.9 Heart failure, unspecified (principal); N19 Unspecified kidney failure; R60.9 Edema, unspecified
CPT/HCPCS: A0425; A0428

== ENCOUNTER 2018-02-15 12:24 | Outpatient (RCR) | payer MEDICARE, BC ==
[2017-02-18 08:45] VITALS: BMI 24.5
[2018-02-11] MEDS: [UNRECOGNIZED DRUG - OTHER] IV PRN ×2 (14:02→14:03)
[2018-02-14] MEDS: [UNRECOGNIZED DRUG - OTHER] IV PRN ×2 (13:52)
[2018-02-14] MEDS: LIDOCAINE/SOD BICARB 8.4% SYR SC PRN (13:58)
[~2018-02-15 12:24] MED LIST changes: +ALTEPLASE RECOMB 2 MG VIAL IVP PRN; -CALC-488 PO; +DIALYSIS ACETAMINOPHEN 325 MG PO PRN; -DILT-102 PO; -DILT-106 PO; +DILT120C12 PO; -DILT120C18 PO; +HEPARIN (PORCINE) 1000 UNIT/ML (DIALYSIS) IVP PRN; -HYDR-4309 PO; +HYDR-653 PO; +LIDOCAINE/PRILOCAINE 30GM TUBE TP PRN; -LOPE-111 PO; -NEPH PO; +PROMETHAZINE HCL 25 MG TAB PO PRN; +[UNRECOGNIZED DRUG - OTHER] IV PRN; +[UNRECOGNIZED DRUG - OTHER] IVP PRN; +diphenhydr DIALYSIS 50 MG/ML IVP PRN
[2018-02-16] MEDS: [UNRECOGNIZED DRUG - OTHER] IV PRN ×2 (13:59)
[2018-02-16 14:45] LABS: PLATELET COUNT, AUTOMATED 425 K/uL (150-450)
[2018-02-16] MEDS: SODIUM FERRIC GLUC 62.5 MG/5ML IVP PRN (15:10)
[2018-02-18] MEDS ORDERED: DARBEPOETIN ESRD 25 MCG/ML IVP PRN (09:05)
[2018-02-18] MEDS: [UNRECOGNIZED DRUG - OTHER] IV PRN ×2 (12:27)
[2018-02-18] MEDS ORDERED: LANI SUBQ (17:35)
[2018-02-21] MEDS: [UNRECOGNIZED DRUG - OTHER] IV PRN ×2 (12:29)
[2018-02-21] MEDS ORDERED: DILT-106 PO (15:10)
[2018-02-21] MEDS ORDERED: NEPH PO (15:10)
[2018-02-21] MEDS ORDERED: CALC-488 PO (15:10)
[2018-02-21] MEDS ORDERED: LOPE-111 PO (15:10)
[2018-02-21] MEDS ORDERED: DILT-102 PO (15:10)
[2018-02-23] MEDS: HEPARIN (PORCINE) 1000 UNIT/ML (DIALYSIS) IVP PRN ×2 (13:58→13:59)
[2018-02-23] MEDS: SODIUM FERRIC GLUC 62.5 MG/5ML IVP PRN (14:15)
[2018-02-25] MEDS: HEPARIN (PORCINE) 1000 UNIT/ML (DIALYSIS) IVP PRN ×2 (13:54)
[2018-02-28] MEDS: LIDOCAINE/SOD BICARB 8.4% SYR SC PRN (13:55)
[2018-02-28] MEDS: HEPARIN (PORCINE) 1000 UNIT/ML (DIALYSIS) IVP PRN ×2 (13:56)
[2018-03-02] MEDS: HEPARIN (PORCINE) 1000 UNIT/ML (DIALYSIS) IVP PRN ×2 (11:00→11:01)
[2018-03-02 11:31] LABS: PLATELET COUNT, AUTOMATED 413 K/uL (150-450)
[2018-03-02] MEDS: SODIUM FERRIC GLUC 62.5 MG/5ML IVP PRN (11:32)
[2018-03-04] MEDS ORDERED: CLOP75TA43 PO (10:49)
[2018-03-04] MEDS: HEPARIN (PORCINE) 1000 UNIT/ML (DIALYSIS) IVP PRN ×2 (13:45)
[2018-03-07] MEDS: HEPARIN (PORCINE) 1000 UNIT/ML (DIALYSIS) IVP PRN ×2 (12:31→12:32)
[2018-03-07] MEDS: LIDOCAINE/SOD BICARB 8.4% SYR SC PRN (13:13)
[2018-03-09] MEDS: HEPARIN (PORCINE) 1000 UNIT/ML (DIALYSIS) IVP PRN ×2 (14:03)
[2018-03-09] MEDS: SODIUM FERRIC GLUC 62.5 MG/5ML IVP PRN (14:23)
[2018-03-11] MEDS: HEPARIN (PORCINE) 1000 UNIT/ML (DIALYSIS) IVP PRN ×2 (13:43)
[2018-03-11] MEDS ORDERED: HEPATITIS B(DIAL) VAC 20MCG/ML 1 ML VIAL IM ONLY ONE (13:45)
[2018-03-14] MEDS: LIDOCAINE/SOD BICARB 8.4% SYR SC PRN (13:58)
[2018-03-14] MEDS: HEPARIN (PORCINE) 1000 UNIT/ML (DIALYSIS) IVP PRN ×2 (13:58)
[2018-03-14] MEDS: LOPERAMIDE HCL 2 MG CAP PO PRN (14:03)
[2018-03-16] MEDS: HEPARIN (PORCINE) 1000 UNIT/ML (DIALYSIS) IVP PRN ×2 (13:47→13:48)
[2018-03-16] MEDS: SODIUM FERRIC GLUC 62.5 MG/5ML IVP PRN (13:52)
[2018-03-18] MEDS: HEPARIN (PORCINE) 1000 UNIT/ML (DIALYSIS) IVP PRN ×2 (13:47→13:48)
[2018-03-21] MEDS: HEPARIN (PORCINE) 1000 UNIT/ML (DIALYSIS) IVP PRN ×2 (13:31)
[2018-03-23] MEDS: HEPARIN (PORCINE) 1000 UNIT/ML (DIALYSIS) IVP PRN ×2 (13:34→13:35)
[2018-03-23] MEDS: SODIUM FERRIC GLUC 62.5 MG/5ML IVP PRN (13:56)
[2018-03-25] MEDS: HEPARIN (PORCINE) 1000 UNIT/ML (DIALYSIS) IVP PRN ×2 (12:44)
[2018-03-28] MEDS: HEPARIN (PORCINE) 1000 UNIT/ML (DIALYSIS) IVP PRN ×2 (12:48)
[2018-03-30] MEDS: HEPARIN (PORCINE) 1000 UNIT/ML (DIALYSIS) IVP PRN ×2 (12:27→12:28)
[2018-03-30] MEDS: SODIUM FERRIC GLUC 62.5 MG/5ML IVP PRN (12:43)
[2018-04-01] MEDS: HEPARIN (PORCINE) 1000 UNIT/ML (DIALYSIS) IVP PRN ×2 (12:32)
[2018-04-04] MEDS: HEPARIN (PORCINE) 1000 UNIT/ML (DIALYSIS) IVP PRN ×2 (12:32→12:33)
[2018-04-06] MEDS: HEPARIN (PORCINE) 1000 UNIT/ML (DIALYSIS) IVP PRN ×2 (12:19)
[2018-04-06] MEDS: SODIUM FERRIC GLUC 62.5 MG/5ML IVP PRN (12:41)
[2018-04-08] MEDS: HEPARIN (PORCINE) 1000 UNIT/ML (DIALYSIS) IVP PRN ×2 (12:21)
[2018-04-11] MEDS: HEPARIN (PORCINE) 1000 UNIT/ML (DIALYSIS) IVP PRN ×2 (12:18→12:19)
[2018-04-11] MEDS ORDERED: HEPATITIS B(DIAL) VAC 20MCG/ML 1 ML VIAL IM ONLY ONE (14:45)
[2018-04-13] MEDS: HEPARIN (PORCINE) 1000 UNIT/ML (DIALYSIS) IVP PRN ×2 (12:22)
[2018-04-13] MEDS: SODIUM FERRIC GLUC 62.5 MG/5ML IVP PRN (13:04)
[2018-04-13 14:18] LABS: PLATELET COUNT, AUTOMATED 249 K/uL (150-450)
[2018-04-15] MEDS: HEPARIN (PORCINE) 1000 UNIT/ML (DIALYSIS) IVP PRN ×2 (12:28)
[2018-04-15] MEDS: DARBEPOETIN ESRD 25 MCG/ML IVP PRN (13:48)
[2018-04-18] MEDS: HEPARIN (PORCINE) 1000 UNIT/ML (DIALYSIS) IVP PRN ×2 (12:18)
[2018-04-18] MEDS: LOPERAMIDE HCL 2 MG CAP PO PRN (12:29)
[2018-04-20] MEDS: HEPARIN (PORCINE) 1000 UNIT/ML (DIALYSIS) IVP PRN ×2 (12:28→12:29)
[2018-04-20] MEDS: SODIUM FERRIC GLUC 62.5 MG/5ML IVP PRN (12:52)
[2018-04-20] MEDS ORDERED: INFLUENZA VIRUS VAC 0.5ML SYR IM ONLY ONE (16:00)
[2018-04-22] MEDS: HEPARIN (PORCINE) 1000 UNIT/ML (DIALYSIS) IVP PRN ×2 (12:23)
[2018-04-22] MEDS: PARICALCITOL 2 MCG/ML VIAL IVP PRN (14:39)
[2018-04-22] MEDS: DARBEPOETIN ESRD 25 MCG/ML IVP PRN (14:40)
[2018-04-25] MEDS: HEPARIN (PORCINE) 1000 UNIT/ML (DIALYSIS) IVP PRN ×2 (12:23)
[2018-04-25] MEDS: PARICALCITOL 2 MCG/ML VIAL IVP PRN (14:16)
[2018-04-27] MEDS: LOPERAMIDE HCL 2 MG CAP PO PRN (12:22)
[2018-04-27] MEDS: HEPARIN (PORCINE) 1000 UNIT/ML (DIALYSIS) IVP PRN ×2 (12:22)
[2018-04-27] MEDS: SODIUM FERRIC GLUC 62.5 MG/5ML IVP PRN (12:42)
[2018-04-27] MEDS: PARICALCITOL 2 MCG/ML VIAL IVP PRN (12:42)
[2018-04-29] MEDS: HEPARIN (PORCINE) 1000 UNIT/ML (DIALYSIS) IVP PRN ×2 (12:16→12:17)
[2018-04-29] MEDS: PARICALCITOL 2 MCG/ML VIAL IVP PRN (12:45)
[2018-04-29] MEDS: DARBEPOETIN ESRD 25 MCG/ML IVP PRN (12:45)
[2018-05-02] MEDS: HEPARIN (PORCINE) 1000 UNIT/ML (DIALYSIS) IVP PRN ×2 (12:19)
[2018-05-02] MEDS: PARICALCITOL 2 MCG/ML VIAL IVP PRN (13:02)
[2018-05-04] MEDS: HEPARIN (PORCINE) 1000 UNIT/ML (DIALYSIS) IVP PRN ×2 (12:19)
[2018-05-04] MEDS: PARICALCITOL 2 MCG/ML VIAL IVP PRN (12:40)
[2018-05-04] MEDS: SODIUM FERRIC GLUC 62.5 MG/5ML IVP PRN (12:40)
[2018-05-06] MEDS: HEPARIN (PORCINE) 1000 UNIT/ML (DIALYSIS) IVP PRN ×2 (12:17)
[2018-05-06] MEDS: PARICALCITOL 2 MCG/ML VIAL IVP PRN (12:26)
[2018-05-06] MEDS ORDERED: DARBEPOETIN ESRD 25 MCG/ML IVP PRN (12:45)
[2018-05-06] MEDS ORDERED: HEPATITIS B(DIAL) VAC 20MCG/ML 1 ML VIAL IM ONLY ONE (13:45)
[2018-05-09] MEDS: HEPARIN (PORCINE) 1000 UNIT/ML (DIALYSIS) IVP PRN ×2 (12:23)
[2018-05-09] MEDS: PARICALCITOL 2 MCG/ML VIAL IVP PRN (13:12)
[2018-05-11] MEDS ORDERED: HEPATITIS B(DIAL) VAC 20MCG/ML 1 ML VIAL IM ONLY ONE (12:00)
[2018-05-11] MEDS: HEPARIN (PORCINE) 1000 UNIT/ML (DIALYSIS) IVP PRN ×2 (12:18)
[2018-05-11] MEDS: PARICALCITOL 2 MCG/ML VIAL IVP PRN (12:38)
[2018-05-11] MEDS: SODIUM FERRIC GLUC 62.5 MG/5ML IVP PRN (12:38)
[2018-05-13] MEDS: HEPARIN (PORCINE) 1000 UNIT/ML (DIALYSIS) IVP PRN ×2 (12:18→12:19)
[2018-05-13] MEDS: PARICALCITOL 2 MCG/ML VIAL IVP PRN (13:02)
[2018-05-13] MEDS ORDERED: DARBEPOETIN ESRD 25 MCG/ML IVP PRN (14:15)
[2018-05-16] MEDS: HEPARIN (PORCINE) 1000 UNIT/ML (DIALYSIS) IVP PRN ×2 (12:18→12:19)
[2018-05-16] MEDS: PARICALCITOL 2 MCG/ML VIAL IVP PRN (13:26)
[2018-05-18] MEDS: HEPARIN (PORCINE) 1000 UNIT/ML (DIALYSIS) IVP PRN ×2 (12:20)
[2018-05-18] MEDS: SODIUM FERRIC GLUC 62.5 MG/5ML IVP PRN (13:25)
[2018-05-18] MEDS: PARICALCITOL 2 MCG/ML VIAL IVP PRN (13:25)
[2018-05-18 13:43] LABS: PLATELET COUNT, AUTOMATED 311 K/uL (150-450)
[2018-05-20] MEDS: HEPARIN (PORCINE) 1000 UNIT/ML (DIALYSIS) IVP PRN ×2 (12:19→12:20)
[2018-05-20] MEDS: PARICALCITOL 2 MCG/ML VIAL IVP PRN (15:00)
[2018-05-23] MEDS: HEPARIN (PORCINE) 1000 UNIT/ML (DIALYSIS) IVP PRN ×2 (12:17)
[2018-05-23] MEDS: PARICALCITOL 2 MCG/ML VIAL IVP PRN (12:45)
[2018-05-23] MEDS ORDERED: WATER STERILE 10 ML VIAL IVP PRN (15:45)
[2018-05-25] MEDS: HEPARIN (PORCINE) 1000 UNIT/ML (DIALYSIS) IVP PRN ×2 (12:22)
[2018-05-25] MEDS: PARICALCITOL 2 MCG/ML VIAL IVP PRN (13:24)
[2018-05-25] MEDS: SODIUM FERRIC GLUC 62.5 MG/5ML IVP PRN (13:24)
[2018-05-27] MEDS: HEPARIN (PORCINE) 1000 UNIT/ML (DIALYSIS) IVP PRN ×2 (11:48)
[2018-05-27] MEDS: PARICALCITOL 2 MCG/ML VIAL IVP PRN (14:43)
[2018-05-30] MEDS: HEPARIN (PORCINE) 1000 UNIT/ML (DIALYSIS) IVP PRN ×2 (11:47)
[2018-05-30] MEDS: LOPERAMIDE HCL 2 MG CAP PO PRN (12:03)
[2018-05-30] MEDS: PARICALCITOL 2 MCG/ML VIAL IVP PRN (12:03)
[2018-06-01] MEDS: HEPARIN (PORCINE) 1000 UNIT/ML (DIALYSIS) IVP PRN ×2 (11:47)
[2018-06-01] MEDS: SODIUM FERRIC GLUC 62.5 MG/5ML IVP PRN (12:11)
[2018-06-01] MEDS: PARICALCITOL 2 MCG/ML VIAL IVP PRN (12:11)
[2018-06-03] MEDS: HEPARIN (PORCINE) 1000 UNIT/ML (DIALYSIS) IVP PRN ×2 (11:53)
[2018-06-03] MEDS: PARICALCITOL 2 MCG/ML VIAL IVP PRN (12:07)
[2018-06-06] MEDS: HEPARIN (PORCINE) 1000 UNIT/ML (DIALYSIS) IVP PRN ×2 (11:52)
[2018-06-06] MEDS: PARICALCITOL 2 MCG/ML VIAL IVP PRN (12:14)
[2018-06-08] MEDS: HEPARIN (PORCINE) 1000 UNIT/ML (DIALYSIS) IVP PRN ×2 (11:50)
[2018-06-08] MEDS: PARICALCITOL 2 MCG/ML VIAL IVP PRN (12:12)
[2018-06-08] MEDS: SODIUM FERRIC GLUC 62.5 MG/5ML IVP PRN (12:12)
[2018-06-10] MEDS: HEPARIN (PORCINE) 1000 UNIT/ML (DIALYSIS) IVP PRN ×2 (11:52)
[2018-06-10] MEDS: PARICALCITOL 2 MCG/ML VIAL IVP PRN (12:47)
[2018-06-13] MEDS: HEPARIN (PORCINE) 1000 UNIT/ML (DIALYSIS) IVP PRN ×2 (11:46→11:47)
[2018-06-13] MEDS: PARICALCITOL 2 MCG/ML VIAL IVP PRN (12:35)
[2018-06-15] MEDS: HEPARIN (PORCINE) 1000 UNIT/ML (DIALYSIS) IVP PRN ×2 (11:49)
[2018-06-15] MEDS: PARICALCITOL 2 MCG/ML VIAL IVP PRN (12:40)
[2018-06-15] MEDS: SODIUM FERRIC GLUC 62.5 MG/5ML IVP PRN (12:40)
[2018-06-15 13:08] LABS: PLATELET COUNT, AUTOMATED 303 K/uL (150-450)
[2018-06-18] MEDS: HEPARIN (PORCINE) 1000 UNIT/ML (DIALYSIS) IVP PRN ×2 (11:48)
[2018-06-18] MEDS: DARBEPOETIN ESRD 25 MCG/ML IVP PRN (12:33)
[2018-06-18] MEDS: PARICALCITOL 2 MCG/ML VIAL IVP PRN (12:34)
[2018-06-21] MEDS: HEPARIN (PORCINE) 1000 UNIT/ML (DIALYSIS) IVP PRN ×2 (08:59)
[2018-06-21] MEDS: PARICALCITOL 2 MCG/ML VIAL IVP PRN (11:15)
[2018-06-21] MEDS: SODIUM FERRIC GLUC 62.5 MG/5ML IVP PRN (11:15)
[2018-06-24] MEDS: HEPARIN (PORCINE) 1000 UNIT/ML (DIALYSIS) IVP PRN ×2 (11:48)
[2018-06-24] MEDS: PARICALCITOL 2 MCG/ML VIAL IVP PRN (12:31)
[2018-06-27] MEDS: HEPARIN (PORCINE) 1000 UNIT/ML (DIALYSIS) IVP PRN ×2 (11:50)
[2018-06-27] MEDS: PARICALCITOL 2 MCG/ML VIAL IVP PRN (12:22)
[2018-06-29] MEDS: HEPARIN (PORCINE) 1000 UNIT/ML (DIALYSIS) IVP PRN ×2 (11:48)
[2018-06-29 12:45] LABS: PLATELET COUNT, AUTOMATED 259 K/uL (150-450)
[2018-06-29] MEDS: SODIUM FERRIC GLUC 62.5 MG/5ML IVP PRN (14:24)
[2018-06-29] MEDS: PARICALCITOL 2 MCG/ML VIAL IVP PRN (14:25)
[2018-07-01] MEDS: HEPARIN (PORCINE) 1000 UNIT/ML (DIALYSIS) IVP PRN ×2 (11:48)
[2018-07-01] MEDS: DARBEPOETIN ESRD 25 MCG/ML IVP PRN (12:06)
[2018-07-01] MEDS: PARICALCITOL 2 MCG/ML VIAL IVP PRN (12:06)
[2018-07-04] MEDS: HEPARIN (PORCINE) 1000 UNIT/ML (DIALYSIS) IVP PRN ×2 (11:51)
[2018-07-04] MEDS: PARICALCITOL 2 MCG/ML VIAL IVP PRN (12:34)
[2018-07-08] MEDS: HEPARIN (PORCINE) 1000 UNIT/ML (DIALYSIS) IVP PRN ×2 (11:47)
[2018-07-08] MEDS: SODIUM FERRIC GLUC 62.5 MG/5ML IVP PRN (12:27)
[2018-07-08] MEDS: PARICALCITOL 2 MCG/ML VIAL IVP PRN (12:28)
[2018-07-08] MEDS ORDERED: HYDR50TA35 PO (19:10)
[2018-07-11] MEDS: PARICALCITOL 2 MCG/ML VIAL IVP PRN (12:32)
[2018-07-13] MEDS: LOPERAMIDE HCL 2 MG CAP PO PRN (11:46)
[2018-07-13] MEDS: SODIUM FERRIC GLUC 62.5 MG/5ML IVP PRN (12:11)
[2018-07-13] MEDS: PARICALCITOL 2 MCG/ML VIAL IVP PRN (12:11)
[2018-07-15] MEDS: HEPARIN (PORCINE) 1000 UNIT/ML (DIALYSIS) IVP PRN ×4 (11:48→11:50)
[2018-07-15] MEDS: PARICALCITOL 2 MCG/ML VIAL IVP PRN (13:38)
[2018-07-15] MEDS: DARBEPOETIN ESRD 25 MCG/ML IVP PRN (13:39)
[2018-07-17] MEDS: HEPARIN (PORCINE) 1000 UNIT/ML (DIALYSIS) IVP PRN ×2 (11:52→11:53)
[2018-07-17] MEDS: PARICALCITOL 2 MCG/ML VIAL IVP PRN (13:15)
[2018-07-20] MEDS: HEPARIN (PORCINE) 1000 UNIT/ML (DIALYSIS) IVP PRN ×2 (11:44)
[2018-07-20] MEDS ORDERED: NS 0.9% IVPB PRN ×2 (12:15)
[2018-07-20] MEDS ORDERED: GENTAMICIN IVPB PRN (12:15)
[2018-07-20] MEDS ORDERED: ADDVIAL IVPB PRN (12:15)
[2018-07-20] MEDS ORDERED: VANCOMYCIN IVPB PRN (12:15)
[2018-07-20] MEDS: PARICALCITOL 2 MCG/ML VIAL IVP PRN (12:40)
[2018-07-20] MEDS: SODIUM FERRIC GLUC 62.5 MG/5ML IVP PRN (12:41)
[2018-07-20] MEDS: VANCOMYCIN IVPB PRN (14:51)
[2018-07-20] MEDS: NS 0.9% IVPB PRN (14:51)
[2018-07-20] MEDS: ADDVIAL IVPB PRN (14:51)
[2018-07-22] MEDS: HEPARIN (PORCINE) 1000 UNIT/ML (DIALYSIS) IVP PRN ×2 (11:46→11:47)
[2018-07-22] MEDS: PARICALCITOL 2 MCG/ML VIAL IVP PRN (12:23)
[2018-07-22] MEDS: DARBEPOETIN ESRD 25 MCG/ML IVP PRN (12:23)
[2018-07-22] MEDS: NS 0.9% IVPB PRN (14:44)
[2018-07-22] MEDS: ADDVIAL IVPB PRN (14:44)
[2018-07-22] MEDS: VANCOMYCIN IVPB PRN (14:44)
[2018-07-22] MEDS: GENTAMICIN/NS 80 MG/100 ML PB 100 ML IVPB PRN (15:47)
[2018-07-25] MEDS: HEPARIN (PORCINE) 1000 UNIT/ML (DIALYSIS) IVP PRN ×2 (11:46→11:47)
[2018-07-25] MEDS: LOPERAMIDE HCL 2 MG CAP PO PRN (11:57)
[2018-07-25] MEDS: PARICALCITOL 2 MCG/ML VIAL IVP PRN (12:37)
[2018-07-25] MEDS: ADDVIAL IVPB PRN (14:47)
[2018-07-25] MEDS: NS 0.9% IVPB PRN (14:47)
[2018-07-25] MEDS: VANCOMYCIN IVPB PRN (14:47)
[2018-07-25] MEDS: GENTAMICIN/NS 80 MG/100 ML PB 100 ML IVPB PRN (15:59)
[2018-07-26] MEDS ORDERED: VANCOMYCIN IVPB ONE
[2018-07-26] MEDS ORDERED: NS 0.9% IVPB ONE
[2018-07-26] MEDS ORDERED: ADDVIAL IVPB ONE
[2018-07-26] MEDS ORDERED: GENTAMICIN/NS 80 MG/100 ML PB 100 ML IVPB PRN
== END 2018-07-25 18:03 | disposition home or self-care (01) ==
LOC: DIAL 12:24
PROVIDERS: ATTEND Internal Medicine Nephrology
DX: I12.0 Hypertensive chronic kidney disease with stage 5 chronic kidney disease or end stage renal disease (principal); N18.6 End stage renal disease; E11.65 Type 2 diabetes mellitus with hyperglycemia; Z79.4 Long term (current) use of insulin; E03.9 Hypothyroidism, unspecified; I25.10 Atherosclerotic heart disease of native coronary artery without angina pectoris; D63.1 Anemia in chronic kidney disease; E87.70 Fluid overload, unspecified; N17.9 Acute kidney failure, unspecified; K50.90 Crohn's disease, unspecified, without complications; D72.829 Elevated white blood cell count, unspecified; Z99.2 Dependence on renal dialysis; Z23 Encounter for immunization; E11.22 Type 2 diabetes mellitus with diabetic chronic kidney disease
CPT/HCPCS: 36416; 80170; 80202; 82040; 82108; 82247; 82310; 82374; 82465; 82565; 82728; 82947; 82948; 83036; 83540; 83550; 83970; 84075; 84100; 84132; 84295; 84443; 84460; 84478; 84520; 85018; 85025; 86580; 87340; 90747; 90999; A4216; A4657; A9270; G0008; G0010; J0882; J1580; J2501; J2916; J2997; J3370; J7050; Q2037; 90658; 90674; J1644

== ENCOUNTER → 2018-03-16 | Outpatient (REF) | payer MEDICARE, BC ==
[2017-02-18 08:45] VITALS: BMI 24.5
[~2018-03-16] MED LIST changes: -ALTEPLASE RECOMB 2 MG VIAL IVP PRN; +CALC-488 PO; +CLOP75TA43 PO; -DIALYSIS ACETAMINOPHEN 325 MG PO PRN; +DILT-102 PO; +DILT-106 PO; -DILT120C12 PO; +DILT120C18 PO; -HEPARIN (PORCINE) 1000 UNIT/ML (DIALYSIS) IVP PRN; +HYDR-4309 PO; -HYDR-653 PO; -LIDOCAINE/PRILOCAINE 30GM TUBE TP PRN; +LOPE-111 PO; +NEPH PO; -PROMETHAZINE HCL 25 MG TAB PO PRN; -[UNRECOGNIZED DRUG - OTHER] IV PRN; -[UNRECOGNIZED DRUG - OTHER] IVP PRN; -diphenhydr DIALYSIS 50 MG/ML IVP PRN
== END ==
LOC: ZZSENDIN 14:40
PROVIDERS: ATTEND Nurse Practitioner Family
DX: E11.9 Type 2 diabetes mellitus without complications (principal)
CPT/HCPCS: 83036

== ENCOUNTER 2018-04-09 03:55 | Observation (INO) | payer MEDICARE, BC ==
[2017-02-18 08:45] VITALS: Ht 177.8 cm; Wt 64.0 kg
[~2018-04-09] VITALS: Ht 177.8 cm; Wt 64.0 kg
--- NOTE | 2018-04-09 04:08 | ER Report ---
History and Physical Time Seen By MD: 04:08 Hx. of Stated Complaint: PT WORRIED ABOUT POSSIBLE BOWEL BLOCKAGE DEVELOPING. HPI/ROS CHIEF COMPLAINT: worried about bowel obstruction HISTORY OF PRESENT ILLNESS: This is a 72 year old male. He has a history of bowel obstructions in the past and is worried that this is what is happening. He has been having pain across the lower abdomen. Colicky in nature. Increasing belching. He had a bowel movement at midnight, and is still passing gas, but much less. Has been very gassy for 3 days now. Now with belching alot, but no nausea or vomiting yet, although worried that this is coming. He has had to have an NG tube in the past and wanted to catch this early in hopes that he will not need this. He has outpatient dialysis which is going well other than some problems with his fistula. He denies fevers, but has been extremely cold recently. He still makes urine and denies any dysuria. He has some pain in his low back as well. Allergies: Coded Allergies: Iodinated Contrast- Oral and IV Dye (Verified Adverse Reaction, Mild, Itching, 04/09/18) Home Meds Active Scripts [B12] No Conflict Check, 1000 MCG IM Monthly, #22 MCG 1 Refill Inject 1000mcg monthly Prov:SATHISH HENRY CYBER SYSTEMS ENGINEER-BC, ONC 04/06/16 Reported Medications Clopidogrel Bisulfate (PLAVIX) 75 Mg Tablet, 1 TAB PO QDAY, TAB 03/04/18 Vitamin B Cmplx/Vit C/Folic Ac (TRIPHROCAPS SOFTGEL) 1 Each Cap, 1 EACH PO DAILY, CAP 02/21/18 Calcium Carbonate (CALCIUM CARBONATE) 500 Mg Tablet, 500 MG PO TIDCF 02/21/18 Diltiazem Hcl (CARTIA XT) 240 Mg Cap.er.24h, 240 MG PO QPM 02/21/18 Loperamide Hcl (LOPERAMIDE) 2 Mg Tablet, 2 MG PO PRN PRN for DIARRHEA 02/21/18 Insulin Glargine (LANTUS) 100 Unit/Ml Soln, 4 UNIT SUBQ QDAY, ML 4 units with dinner 02/18/18 Mesalamine (PENTASA) 250 Mg Capcr, 1000 MG PO BID 01/17/18 Insulin Glargine (LANTUS) 100 Unit/Ml Soln, 25 UNIT SUBQ QAM, ML 08/08/17 Furosemide (LASIX) 40 Mg Tablet, 80 MG PO non dialysis days, TAB take 40mg by mouth on non dialysis days (T, Sonali, Sat, and Sun) 10/15/15 Vit A,C & E/Lutein/Minerals (OCUVITE TABLET) 1 Each Tablet, 1 EACH PO DAILY 06/22/15 Pentoxifylline (PENTOXIFYLLINE) 400 Mg Tabsr, 400 MG PO BID 03/13/15 Hydralazine Hcl (HYDRALAZINE HCL) 50 Mg Tablet, 50 MG PO TID, TAB 03/13/15 Dicyclomine Hcl (DICYCLOMINE HCL) 20 Mg Tablet, 20 MG PO QID 01/23/15 Levothyroxine Sodium (LEVOTHYROXINE SODIUM) 25 Mcg Tablet, 25 MCG PO QDAY 07/09/13 Pravastatin Sodium (PRAVASTATIN SODIUM) 20 Mg Tablet, 10 MG PO QDAY 07/09/13 Aspirin (Adult Aspirin) 81 Mg Tab.chew, 81 MG PO DAILY 03/22/07 Anagrelide Hcl (Agrylin) 0.5 Mg Capsule, 0.5 MG PO DAILY 03/22/07 Reviewed Nurses Notes: Yes Hx Smoking: No (CHEWS 1 CAN Q 3 DAYS FOR 40 YEARS. SMOKED AGE 18 TO 23) Smoking Status: Former Smoker Exposure to Second Hand Smoke?: No Hx Substance Use Disorder: No Hx Alcohol Use: Yes Constitutional Vital Sign - Last 24 Hours 04/09/18 04/09/18 04/09/18 04/09/18 04:00 04:01 04:10 04:25 Temp 97.9 Pulse 78 71 71 Resp 20 B/P (MAP) 123/83 123/83 (96) Pulse Ox 98 98 99 O2 Delivery Room Air 04/09/18 04/09/18 04:40 04:55 Pulse 70 Pulse Ox 99 Physical Exam General Appearance: The patient is alert. No acute distress. Eyes: Pupils are equal, round. No pallor, injection or icterus. ENT: Mucous membranes are moist. Respiratory: Lungs are clear to auscultation. Cardiovascular: Regular rate and rhythm. No murmurs, gallops or rubs. Gastrointestinal: Abdomen is tender across the lower abdomen. Nondistended. Guarding, but no rebound. Hyperactive bowel sounds. No costovertebral angle tenderness with percussion. Neurological: Alert and oriented x3. Skin: Warm and dry. Musculoskeletal: Extremities are nontender. No tenderness in palpation of the cervical, thoracic and lumbar spine. DIFFERENTIAL DIAGNOSIS: After history and physical exam, differential diagnosis was considered for concern for bowel obstruction. Medical Decision Making Data Points Result Diagram: 04/09/18 0455 04/09/18 0455 Laboratory Hematology Test 04/09/18 04:55 Red Blood Count 4.39 M/uL (4.00-5.60) Mean Corpuscular Volume 84.6 fL (80.0-96.0) Mean Corpuscular Hemoglobin 28.2 pg (26.0-33.0) Mean Corpuscular Hemoglobin Concent 33.3 g/dL (32.0-36.0) Red Cell Distribution Width 21.0 % (11.5-14.5) Mean Platelet Volume 8.2 fL (7.2-11.1) Neutrophils (%) (Auto) % (39.4-72.5) Lymphocytes (%) (Auto) % (17.6-49.6) Monocytes (%) (Auto) % (4.1-12.4) Eosinophils (%) (Auto) % (0.4-6.7) Basophils (%) (Auto) % (0.3-1.4) Nucleated RBC Relative Count (auto) /100WBC Neutrophils # (Auto) K/uL (2.0-7.4) Lymphocytes # (Auto) K/uL (1.3-3.6) Monocytes # (Auto) K/uL (0.3-1.0) Eosinophils # (Auto) K/uL (0.0-0.5) Basophils # (Auto) K/uL (0.0-0.1) Nucleated RBC Absolute Count (auto) K/uL Neutrophils % (Manual) 82 % (39.4-72.5) Band Neutrophils % 2 % Lymphocytes % (Manual) 3 % (17.6-49.6) Atypical Lymphocytes % 5 % Monocytes % (Manual) 1 % (4.1-12.4) Eosinophils % (Manual) 5 % (0.4-6.7) Basophils % (Manual) 0 % (0.3-1.4) Metamyelocytes % 2 % Anisocytosis 2+ Peripheral Blood Smear Yes Y/N Sodium Level 137 mmol/L (137-145) Potassium Level 3.9 mmol/L (3.5-5.0) Chloride Level 95 mmol/L (98-107) Carbon Dioxide Level 26 mmol/L (22-30) Blood Urea Nitrogen 27 mg/dl (9-21) Creatinine 3.70 mg/dl (0.66-1.25) Glomerular Filtration Rate Calc 16.2 Random Glucose 146 mg/dl (75-110) Lactate 2.2 mmol/L (0.7-2.1) Calcium Level 9.2 mg/dl (8.4-10.2) Total Bilirubin 0.3 mg/dl (0.2-1.3) Aspartate Amino Transf (AST/SGOT) 21 U/L (0-35) Alanine Aminotransferase (ALT/SGPT) 28 U/L (0-56) Alkaline Phosphatase 170 U/L (0-126) Total Protein 7.2 g/dl (6.3-8.2) Albumin 4.4 g/dl (3.5-5.0) Amylase Level 116 U/L (0-110) Lipase 361 U/L (23-300) Chemistry Test 04/09/18 04:55 White Blood Count 17.8 k/uL (4.5-11.0) Red Blood Count 4.39 M/uL (4.00-5.60) Hemoglobin 12.4 g/dL (14.0-18.0) Hematocrit 37.1 % (42.0-52.0) Mean Corpuscular Volume 84.6 fL (80.0-96.0) Mean Corpuscular Hemoglobin 28.2 pg (26.0-33.0) Mean Corpuscular Hemoglobin Concent 33.3 g/dL (32.0-36.0) Red Cell Distribution Width 21.0 % (11.5-14.5) Platelet Count 247 K/uL (150-450) Mean Platelet Volume 8.2 fL (7.2-11.1) Neutrophils (%) (Auto) % (39.4-72.5) Lymphocytes (%) (Auto) % (17.6-49.6) Monocytes (%) (Auto) % (4.1-12.4) Eosinophils (%) (Auto) % (0.4-6.7) Basophils (%) (Auto) % (0.3-1.4) Nucleated RBC Relative Count (auto) /100WBC Neutrophils # (Auto) K/uL (2.0-7.4) Lymphocytes # (Auto) K/uL (1.3-3.6) Monocytes # (Auto) K/uL (0.3-1.0) Eosinophils # (Auto) K/uL (0.0-0.5) Basophils # (Auto) K/uL (0.0-0.1) Nucleated RBC Absolute Count (auto) K/uL Neutrophils % (Manual) 82 % (39.4-72.5) Band Neutrophils % 2 % Lymphocytes % (Manual) 3 % (17.6-49.6) Atypical Lymphocytes % 5 % Monocytes % (Manual) 1 % (4.1-12.4) Eosinophils % (Manual) 5 % (0.4-6.7) Basophils % (Manual) 0 % (0.3-1.4) Metamyelocytes % 2 % Anisocytosis 2+ Peripheral Blood Smear Yes Y/N Glomerular Filtration Rate Calc 16.2 Lactate 2.2 mmol/L (0.7-2.1) Calcium Level 9.2 mg/dl (8.4-10.2) Total Bilirubin 0.3 mg/dl (0.2-1.3) Aspartate Amino Transf (AST/SGOT) 21 U/L (0-35) Alanine Aminotransferase (ALT/SGPT) 28 U/L (0-56) Alkaline Phosphatase 170 U/L (0-126) Total Protein 7.2 g/dl (6.3-8.2) Albumin 4.4 g/dl (3.5-5.0) Amylase Level 116 U/L (0-110) Lipase 361 U/L (23-300) EKG/Imaging Imaging EXAMINATION: CT abdomen without IV contrast CT pelvis without IV contrast HISTORY: Abdominal pain, belching, poor bowel movements/gas. COMPARISON: CT abdomen and pelvis from 10/07/2017. TECHNIQUE: Axial images were taken through the abdomen and pelvis without intravenous contrast. Sagittal and coronal reformatted images are also submitted. Oral contrast was administered. One of the following dose optimization techniques was utilized in the performance of this exam: Automated exposure control; adjustment of the mA and/or kV according to the patient's size; or use of an iterative reconstruction technique. Specific details can be referenced in the facility's radiology CT exam operational policy. FINDINGS: Liver/biliary: A few small gallstones in the gallbladder. Liver is homogeneous. There is no biliary ductal dilatation. Pancreas: Negative. Spleen: Negative. Adrenal glands: Negative. Kidneys: Negative. Pelvic structures: Mildly enlarged prostate. Bowel: There is a suture line in the right lower quadrant at an ileocolic anastomosis. Moderate distention of the stomach and small bowel loops which are fluid-filled with scattered air-fluid levels. A focal transition point is not visualized, but the distal small bowel loops are slightly less distended. The appendix is not visualized. Peritoneum/retroperitoneum/mesenteries: Negative. Vessels: Extensive atherosclerotic calcifications. Musculoskeletal/body wall: Negative. Lymph nodes: Negative. Lower chest: Negative. IMPRESSION: 1. Recurrent small bowel obstruction. A transition point is not visualized, but the distal small bowel in the right lower quadrant are slightly less distended. 2. Cholelithiasis. Report Dictated By: Dorothea Sanders MD at 04/09/2018 6:11 AM ED Course/Re-evaluation Clinical Indication for ER IV: IV Access ED Course CT scan of the abdomen and pelvis with oral gastrografin, shows obstruction, mid small bowel. Discussed with Dr. Mayen who accepted the patient for admission. Decision to Disposition Date: Apr 09, 2018 Decision to Disposition Time: 07:14 Depart Departure Latest Vital Signs Vital Signs Date Time Temp Pulse Resp B/P (MAP) Pulse Ox O2 Delivery O2 Flow Rate FiO2 04/09/18 04:55 70 04/09/18 04:40 99 04/09/18 04:01 123/83 (96) 04/09/18 04:00 97.9 20 Room Air Impression: Primary Impression: Small bowel obstruction Condition: Condition Unchanged Disposition: Admitted from ER Referrals: MEENAKSHI JENKINS (PCP) GATITO MURRAY MD Apr 09, 2018 04:08
[2018-04-09] MEDS ORDERED: DIATRIZOATE MEGL/DIATRIZOA SOD 367 MG/ML SOLN PO ONE (04:45)
[2018-04-09] MEDS ORDERED: DIATRIZOATE MEGL/DIATRIZOA SOD 367 MG/ML SOLN ONE (04:59)
[2018-04-09] MEDS ORDERED: MORPHINE 4 MG/ML SDV IVP ONE (05:15)
[2018-04-09 05:17] LABS: PLATELET COUNT, AUTOMATED 247 K/uL (150-450)
--- NOTE | 2018-04-09 06:30 | RADIOLOGY IMAGING REPORT ---
FACILITY: [facility] - [place] PATIENT NAME: Wei Osman : 1945 MR: [id number] V: [id number] EXAM DATE: ORDERING PHYSICIAN: GATITO MURRAY TECHNOLOGIST: Location: [facility] - [place] Patient: Wei Osman : 1945 Visit/Account:[id number] Date of Sevice: 04/09/2018 EXAMINATION: CT abdomen without IV contrast CT pelvis without IV contrast HISTORY: Abdominal pain, belching, poor bowel movements/gas. COMPARISON: CT abdomen and pelvis from 10/07/2017. TECHNIQUE: Axial images were taken through the abdomen and pelvis without intravenous contrast. Sag ittal and coronal reformatted images are also submitted. Oral contrast was administered. One of the following dose optimization techniques was utilized in the performance of this exam: Autom ated exposure control; adjustment of the mA and/or kV according to the patient's size; or use of an i terative reconstruction technique. Specific details can be referenced in the facility's radiology C T exam operational policy. FINDINGS: Liver/biliary: A few small gallstones in the gallbladder. Liver is homogeneous. There is no biliary d uctal dilatation. Pancreas: Negative. Spleen: Negative. Adrenal glands: Negative. Kidneys: Negative. Pelvic structures: Mildly enlarged prostate. Bowel: There is a suture line in the right lower quadrant at an ileocolic anastomosis. Moderate diste ntion of the stomach and small bowel loops which are fluid-filled with scattered air-fluid levels. A focal transition point is not visualized, but the distal small bowel loops are slightly less distende d. The appendix is not visualized. Peritoneum/retroperitoneum/mesenteries: Negative. Vessels: Extensive atherosclerotic calcifications. Musculoskeletal/body wall: Negative. Lymph nodes: Negative. Lower chest: Negative. IMPRESSION: 1. Recurrent small bowel obstruction. A transition point is not visualized, but the distal small jose l in the right lower quadrant are slightly less distended. 2. Cholelithiasis. Report Dictated By: Dorothea Sanders MD at 04/09/2018 6:11 AM Report E-Signed By: Dorothea Sanders MD at 04/09/2018 6:26 AM WSN:[id number]
[2018-04-09 08:19] VITALS: BP 134/46
[2018-04-09] MEDS ORDERED: NS(*) 0.9% 1000 ML BAG 1,000 ML IV PRN (09:56)
[2018-04-09] MEDS ORDERED: ONDANSETRON 4 MG/2 ML VIAL IVP PRN (10:00)
[2018-04-09] MEDS ORDERED: FLUSH 10 ML SYR IVP PRN (10:00)
[2018-04-09] MEDS ORDERED: MORPHINE 2 MG/ML SYR IVP PRN (10:00)
--- NOTE | 2018-04-09 10:16 | Gen Surgery History & Physical ---
History of Present Illness Chief Complaint Abdominal cramps History of Present Illness 72yo male presents to the ER with several hours of abdominal cramps that awoke him from sleep and so he came in to the ER. He has had previous bowel obstr uctions and this felt similar to previous symptoms with bowel obstructions and he wanted to come in early so hopefully it would clear up more quickly. No N/V but he has had some belching; more than normal. He has not stopped passing flatus and his last BM was normal at midnight last night. CT in the ER reveals a bowel obstruction although no specific transition point is seen. He has had a previous abdominal surgery, an ileocecectomy for Crohn's and he is currently being treated for Crohn's dz. He also had renal failure, likely due to diabetic nephropathy, and he started dialysis 2 months ago. He is on a Mon, Wed, Fri outpatient dialysis schedule. Last dialysis was yesterday, next is scheduled for day after tomorrow. History Problems: (1) Thrombocytosis Status: Chronic (2) Diabetes mellitus Status: Chronic (3) Pernicious anemia Status: Chronic (4) Hypothyroidism Status: Chronic (5) PVD (peripheral vascular disease) Status: Chronic (6) CVD (cerebrovascular disease) Status: Chronic (7) CAD (coronary artery disease) Status: Chronic (8) Leukocytosis Status: Chronic (9) HTN (hypertension) Status: Chronic (10) Essential thrombocytosis Status: Chronic (11) Right-sided heart failure syndrome Status: Chronic (12) Type 2 diabetes mellitus Status: Chronic (13) CKD (chronic kidney disease) stage 4, GFR 15-29 ml/min Status: Chronic (14) Crohn disease Status: Chronic (15) Diarrhea Status: Chronic Home Meds Active Scripts [B12] No Conflict Check, 1000 MCG IM Monthly, #22 MCG 1 Refill Inject 1000mcg monthly Prov:SATHISH HENRY HAND PASTER-BC, ONC 04/06/16 Reported Medications Clopidogrel Bisulfate (PLAVIX) 75 Mg Tablet, 1 TAB PO QDAY, TAB 03/04/18 Vitamin B Cmplx/Vit C/Folic Ac (TRIPHROCAPS SOFTGEL) 1 Each Cap, 1 EACH PO DAILY, CAP 02/21/18 Calcium Carbonate (CALCIUM CARBONATE) 500 Mg Tablet, 500 MG PO TIDCF 02/21/18 Diltiazem Hcl (CARTIA XT) 240 Mg Cap.er.24h, 240 MG PO QPM 02/21/18 Loperamide Hcl (LOPERAMIDE) 2 Mg Tablet, 2 MG PO PRN PRN for DIARRHEA 02/21/18 Insulin Glargine (LANTUS) 100 Unit/Ml Soln, 4 UNIT SUBQ QDAY, ML 4 units with dinner 02/18/18 Mesalamine (PENTASA) 250 Mg Capcr, 1000 MG PO BID 01/17/18 Insulin Glargine (LANTUS) 100 Unit/Ml Soln, 25 UNIT SUBQ QAM, ML 08/08/17 Furosemide (LASIX) 40 Mg Tablet, 80 MG PO non dialysis days, TAB take 40mg by mouth on non dialysis days (T, Sonali, Sat, and Sun) 10/15/15 Vit A,C & E/Lutein/Minerals (OCUVITE TABLET) 1 Each Tablet, 1 EACH PO DAILY 06/22/15 Pentoxifylline (PENTOXIFYLLINE) 400 Mg Tabsr, 400 MG PO BID 03/13/15 Hydralazine Hcl (HYDRALAZINE HCL) 50 Mg Tablet, 50 MG PO TID, TAB 03/13/15 Dicyclomine Hcl (DICYCLOMINE HCL) 20 Mg Tablet, 20 MG PO QID 01/23/15 Levothyroxine Sodium (LEVOTHYROXINE SODIUM) 25 Mcg Tablet, 25 MCG PO QDAY 07/09/13 Pravastatin Sodium (PRAVASTATIN SODIUM) 20 Mg Tablet, 10 MG PO QDAY 07/09/13 Aspirin (Adult Aspirin) 81 Mg Tab.chew, 81 MG PO DAILY 03/22/07 Anagrelide Hcl (Agrylin) 0.5 Mg Capsule, 0.5 MG PO DAILY 03/22/07 Allergies: Coded Allergies: Iodinated Contrast- Oral and IV Dye (Verified Adverse Reaction, Mild, Itching, 04/09/18) Patient History: FH: diabetes mellitus FATHER, , Age:41 BROTHER OR SISTER CHILD Review of Systems All Systems Reviewed/Normal: Yes, Except as Noted Gastrointestinal: Abdominal Pain Exam General Appearance: Alert, Awake, No Acute Distress, Afebrile Neuro: No Gross deficits Eyes: PERRLA GI: Other (Soft, mild lower abdominal TTP, mildly distended and tympanic.) Extremities: Warm, Perfused Medical Decision Making Data Points Result Diagram: 04/09/18 0455 04/09/18 0455 Assessment and Plan Problems: (1) SBO (small bowel obstruction) Status: Acute Assessment & Plan: 04/09/18: Admit for (initially) conservative management of SBO. He received gastrograffin in ER prior to CT and he is hoping this will help open him up as it has during a past admission. He doesn't feel bad at the moment and he continues to pass flatus. Will keep him on bowel rest and IV fluids and give him time for the obstruction to resolve. If it doesn't improve over the next 48 hours then will plan on a gastrograffin SBFT. If he requires surgery, or if his hospitalization becomes prolonged (i.e. he starts missing more than 1 or 2 dialysis sessions) he will require transfer to where inpatient dialysis can be performed. He seems to understand and is agreeable with this plan. (2) Type 2 diabetes mellitus Status: Chronic Assessment & Plan: Will check FSBG and start sliding scale. (3) CKD (chronic kidney disease) stage 4, GFR 15-29 ml/min Status: Chronic Assessment & Plan: Will follow electrolytes and creatinine (4) Crohn disease Status: Chronic Assessment & Plan: Continue Pentasa. No active inflammation on CT. Condition Stable. Time Spent: < 30 min Venous Thromboembolism VTE Risk Physician Assess for VTE Risk: Yes Patient's VTE Risk: Low VTE Diagnostic Test 2 Days Prior to Admit: No Antithrombotics Is Pt On Any Antithrombotics?: No Problem Qualifiers (1) Type 2 diabetes mellitus: Diabetes mellitus longwall machine operator helper insulin use: with detention use Diabetes mellitus complication status: with kidney complications Diabetes mellitus complication detail: with chronic kidney disease Chronic kidney disease stage: on chronic dialysis Qualified Codes: E11.22 - Type 2 diabetes mellitus with diabetic chronic kidney disease; N18.6 - End stage renal disease; Z79.4 - assisted (current) use of insulin; Z99.2 - Dependence on renal dialysis (2) Crohn disease: Gastrointestinal tract location: small intestine Digestive disease complication type: with intestinal obstruction Qualified Codes: K50.012 - Crohn's disease of small intestine with intestinal obstruction WES RUTH MD Apr 09, 2018 10:16
[2018-04-09] MEDS: FUROSEMIDE 80 MG TAB PO SCH (10:43)
[2018-04-09 11:27] VITALS: BP 133/55
[2018-04-09] MEDS: CALCIUM OYSTER SHELL 500MG TAB PO SCH ×2 (13:00→16:24)
[2018-04-09] MEDS: hydrALAZINE HCL 25 MG TAB PO SCH ×2 (13:19→21:19)
[2018-04-09 16:22] VITALS: BP 107/37
[2018-04-09] MEDS: DILTIAZEM CD 120 MG CAPCR PO SCH (16:24)
[2018-04-09 19:41] VITALS: BP 122/50
[2018-04-09] MEDS: MESALAMINE 250 MG PO SCH (21:00)
[2018-04-09] MEDS ORDERED: HEPARIN (PORC) 5000 UN/ML VIAL SC SCH (21:00)
[2018-04-09] MEDS: PENTOXIFYLLINE 400 MG PO SCH (21:18)
[2018-04-09 22:48] VITALS: BP 137/50
[2018-04-10] MEDS ORDERED: LIDOCAINE/SOD BICARB 8.4% SYR ONE (00:32)
[2018-04-10 03:58] VITALS: BP 127/50
--- NOTE | 2018-04-10 05:37 | RADIOLOGY IMAGING REPORT ---
FACILITY: [facility] - [place] PATIENT NAME: Wei Osman : 1945 MR: [id number] V: [id number] EXAM DATE: [id number] ORDERING PHYSICIAN: WES RUTH TECHNOLOGIST: Location: [facility] Patient: Wei Osman : 1945 Visit/Account:[id number] Date of Sevice: 04/10/2018 INDICATION: SBO EXAM DATE: 04/10/2018 5:00 AM COMPARISON: None. FINDINGS: 2 AP supine images of the abdomen. Bowel gas pattern is nonobstructive. No pneumatosis, pneumoperitoneum or portal venous gas. No eviden ce of large volume ascites or mass. Large amount of stool in the colon. Anastomotic material in the right lower quadrant. IMPRESSION: Dilated small bowel loops seen on prior CT are not well-demonstrated. There is a large a mount of stool in the colon that may indicate constipation. Report Dictated By: Kurtis Oscar MD at 04/10/2018 5:31 AM Report E-Signed By: Kurtis Oscar MD at 04/10/2018 5:33 AM WSN:[id number]
[2018-04-10] MEDS ORDERED: LEVOTHYROXINE SOD 0.025 MG TAB PO SCH (06:00)
[2018-04-10 06:13] LABS: PLATELET COUNT, AUTOMATED 196 K/uL (150-450)
[2018-04-10 07:12] VITALS: BP 122/41
[2018-04-10] MEDS: hydrALAZINE HCL 25 MG TAB PO SCH ×2 (08:31→13:28)
[2018-04-10] MEDS: FUROSEMIDE 80 MG TAB PO SCH (08:33)
[2018-04-10] MEDS: CALCIUM OYSTER SHELL 500MG TAB PO SCH ×3 (08:34→17:04)
[2018-04-10] MEDS: MESALAMINE 250 MG PO SCH (08:34)
[2018-04-10] MEDS ORDERED: VITAMIN B CPLX/VIT C/FOLIC AC PO SCH (09:00)
[2018-04-10] MEDS ORDERED: ANAGRELIDE HCL 0.5 MG PO SCH (09:00)
[2018-04-10] MEDS ORDERED: PANTOPRAZOLE SOD 40 MG IV VIAL IVP SCH (09:00)
[2018-04-10] MEDS ORDERED: PRAVASTATIN SOD 20 MG TAB PO SCH (09:00)
[2018-04-10] MEDS ORDERED: BETA-CAROTENE(A) & E/MIN TAB PO SCH (09:00)
[2018-04-10] MEDS ORDERED: ASPIRIN 81 MG CHEW CHEW SCH (09:00)
--- NOTE | 2018-04-10 09:46 | General Surgery Progress Note ---
Subjective Progress Notes Subjective No complaints this morning. Feels "normal." Physical Exam Vital Signs Date Time Temp Pulse Resp B/P (MAP) Pulse Ox O2 Delivery O2 Flow Rate FiO2 04/10/18 07:16 93 04/10/18 07:16 Room Air 04/10/18 07:12 98.4 73 14 122/41 (68) Intake and Output 04/10/18 07:00 Intake Total 0 ml Balance 0 ml Intake Oral 0 ml # Voids 2 General Appearance: Alert, Awake, No Acute Distress, Afebrile GI: Soft and Non-Tender Extremities: Warm, Perfused Result Diagram: 04/10/18 0539 04/10/18 0539 Assessment and Plan Problems: (1) SBO (small bowel obstruction) Status: Acute Assessment & Plan: 04/09/18: Admit for (initially) conservative management of SBO. He received gastrograffin in ER prior to CT and he is hoping this will help open him up as it has during a past admission. He doesn't feel bad at the moment and he continues to pass flatus. Will keep him on bowel rest and IV fluids and give him time for the obstruction to resolve. If it doesn't improve over the next 48 hours then will plan on a gastrograffin SBFT. If he requires surgery, or if his hospitalization becomes prolonged (i.e. he starts missing more than 1 or 2 dialysis sessions) he will require transfer to where inpatient dialysis can be performed. He seems to understand and is agreeable with this plan. 04/10/18: Seems to be getting better. KUB this morning was normal except for a lot of stool in his colon. He doesn't want a suppository or laxatives as he has chronic diarrhea and he's afraid that he'll have horrible diarrhea. He will try to eat fruit today. If he's doing well this afternoon then will d/c to home this evening so he doesn't miss dialysis in the morning. (2) Type 2 diabetes mellitus Status: Chronic Assessment & Plan: Will check FSBG and start sliding scale. (3) CKD (chronic kidney disease) stage 4, GFR 15-29 ml/min Status: Chronic Assessment & Plan: Will follow electrolytes and creatinine (4) Crohn disease Status: Chronic Assessment & Plan: Continue Pentasa. No active inflammation on CT. Condition Stable. Time Spent: < 30 min Exam Sepsis Risk: No Definite Risk Problem Qualifiers (1) Type 2 diabetes mellitus: Diabetes mellitus fpc insulin use: with oysterman use Diabetes mellitus complication status: with kidney complications Diabetes mellitus complication detail: with chronic kidney disease Chronic kidney disease stage: on chronic dialysis Qualified Codes: E11.22 - Type 2 diabetes mellitus with diabetic ch ronic kidney disease; N18.6 - End stage renal disease; Z79.4 - keno terminal operator (current) use of insulin; Z99.2 - Dependence on renal dialysis (2) Crohn disease: Gastrointestinal tract location: small intestine Digestive disease complication type: with intestinal obstruction Qualified Codes: K50.012 - Crohn's disease of small intestine with intestinal obstruction WES RUTH MD Apr 10, 2018 09:46
[2018-04-10] MEDS: PENTOXIFYLLINE 400 MG PO SCH (09:50)
[2018-04-10 11:13] VITALS: BP 121/34
[2018-04-10] MEDS: INSULIN HUM LISPRO 100 UN/ML 3 ML VIAL SUBQ PRN ×2 (11:21→16:58)
--- NOTE | 2018-04-10 15:01 | Medical Nutrition Therapy ---
Nutrition Anthropometrics Height (Inches): 70 Weight (Pounds): 141 Weight (Calculated Kilograms): 63.957 BMI: 20.3 Fareed Nutrition Score: Adequate Fareed Nutrition Risk Score: 19 Dietary Referral Nutrition Risk Factors: Nutrition Risk Comment: Physical Findings Physical Appearance: WNR Skin Appearance Skin Appearance: Edema Edema Location Modifier: Edema Location: Type of Edema: Degree of Edema: Gastrointestinal Symptoms GI Symtoms: Appetite Changes, Change in Bowel Pattern Tube Present: Bowel Sounds: Recent Bowel Pattern: Stool Characteristics: Nutrition/Food History Special Diet Prior Admit, Decreased Appetite Fair Nutritional Diagnosis Nutritional Risk Acuity 1: Acute/ES Renal, GI Obstruction Nutritional Risk Acuity 3: Nausea Past Medical History: HX of recurrent SBO, T2DM, HTN, Renal Failure (on dialysis), hypothyroid, Crohn's, CAD, TIA,anemia, right-sided heart failure. Nutritional Acuity: 1-High Nutrition Diagnosis: Altered GI Function Nutrition Etiology: Physiological Causes Nutrition Problem/Etiology/Sym: Altered Gastrointestinal (GI) Function related to alteration in gastrointestinal tract function secondary to SBO AEB positive SBO diagnosis with CT of the abdomen and abdominal pain, nausea prior to admit. Energy Requirement: 2095 ([place]-St Jeor: Actual BW X 1.5) Protein Requirement: 64 (Actual BW Kg X 1.0) Diet Type: Renal High Protein Nutrition Intervention: Incr diet as tolerated Nutrition Monitoring & Eval Nutrition Goals: Eat 75-100% Meal RD Patient Assessment Time: [address] Assessment Type: RD Assessment Patient Nutrition Acuity: 1-High Follow Up Date: Apr 12, 2018 Nutritional Comment: Pt admitted for SBO with Hx of Crohns, T2DM and Renal Failure (on dialysis). Low H/H, High Amylase/Lipase, Glu 264, High Lactate, High BUN/Creat. Lispro SSI. Receiving High Protein Renal diet with no reports of intake. Follow intake, clinical progression, etc. -RUBEN PETTY Apr 10, 2018 15:01
[2018-04-10 17:00] VITALS: BP 134/79
[2018-04-10] MEDS: DILTIAZEM CD 120 MG CAPCR PO SCH (17:04)
--- NOTE | 2018-04-10 17:54 | Short(Outpt) Discharge Summary ---
Discharge Summary Reason for Hosp/Final Diag: (1) SBO (small bowel obstruction) Status: Acute Hospital Course & Plan: 04/09/18: Admit for (initially) conservative management of SBO. He received gastrograffin in ER prior to CT and he is hoping this will help open him up as it has during a past admission. He doesn't feel bad at the moment and he continues to pass flatus. Will keep him on bowel rest and IV fluids and give him time for the obstruction to resolve. If it doesn't improve over the next 48 hours then will plan on a gastrograffin SBFT. If he requires surgery, or if his hospitalization becomes prolonged (i.e. he starts missing more than 1 or 2 dialysis sessions) he will require transfer to where inpatient dialysis can be performed. He seems to understand and is agreeable with this plan. 04/10/18: Seems to be getting better. KUB this morning was normal except for a lot of stool in his colon. He doesn't want a suppository or laxatives as he has chronic diarrhea and he's afraid that he'll have horrible diarrhea. He will try to eat fruit today. If he's doing well this afternoon then will d/c to home this evening so he doesn't miss dialysis in the morning. 04/10/18 (evening): Continued improvement. Passing flatus and 3 BMs today. Tolerating regular diet. No abdominal pain. Will d/c to home this evening. (2) Type 2 diabetes mellitus Status: Chronic Hospital Course & Plan: Will check FSBG and start sliding scale. (3) CKD (chronic kidney disease) stage 4, GFR 15-29 ml/min Status: Chronic Hospital Course & Plan: Will follow electrolytes and creatinine (4) Crohn disease Status: Chronic Hospital Course & Plan: Continue Pentasa. No active inflammation on CT. Departure Discharge to: Home, Self Care Discharge Instructions Home Meds Active Scripts [B12] No Conflict Check, 1000 MCG IM Monthly, #22 MCG 1 Refill Inject 1000mcg monthly Prov:SATHISH HENRY LUMBER BEARER-BC, ONC 04/06/16 Reported Medications Clopidogrel Bisulfate (PLAVIX) 75 Mg Tablet, 1 TAB PO QDAY, TAB 03/04/18 Vitamin B Cmplx/Vit C/Folic Ac (TRIPHROCAPS SOFTGEL) 1 Each Cap, 1 EACH PO DAILY, CAP 7/30/18 Calcium Carbonate (CALCIUM CARBONATE) 500 Mg Tablet, 500 MG PO TIDCF 02/21/18 Diltiazem Hcl (CARTIA XT) 240 Mg Cap.er.24h, 240 MG PO QPM 02/21/18 Loperamide Hcl (LOPERAMIDE) 2 Mg Tablet, 2 MG PO PRN PRN for DIARRHEA 02/21/18 Insulin Glargine (LANTUS) 100 Unit/Ml Soln, 4 UNIT SUBQ QDAY, ML 4 units with dinner 02/18/18 Mesalamine (PENTASA) 250 Mg Capcr, 1000 MG PO BID 01/17/18 Insulin Glargine (LANTUS) 100 Unit/Ml Soln, 25 UNIT SUBQ QAM, ML 08/08/17 Furosemide (LASIX) 40 Mg Tablet, 80 MG PO non dialysis days, TAB take 40mg by mouth on non dialysis days (T, Sonali, Sat, and Sun) 10/15/15 Vit A,C & E/Lutein/Minerals (OCUVITE TABLET) 1 Each Tablet, 1 EACH PO DAILY 06/22/15 Pentoxifylline (PENTOXIFYLLINE) 400 Mg Tabsr, 400 MG PO BID 03/13/15 Hydralazine Hcl (HYDRALAZINE HCL) 50 Mg Tablet, 50 MG PO TID, TAB 03/13/15 Dicyclomine Hcl (DICYCLOMINE HCL) 20 Mg Tablet, 20 MG PO QID 01/23/15 Levothyroxine Sodium (LEVOTHYROXINE SODIUM) 25 Mcg Tablet, 25 MCG PO QDAY 07/09/13 Pravastatin Sodium (PRAVASTATIN SODIUM) 20 Mg Tablet, 10 MG PO QDAY 07/09/13 Aspirin (Adult Aspirin) 81 Mg Tab.chew, 81 MG PO DAILY 03/22/07 Anagrelide Hcl (Agrylin) 0.5 Mg Capsule, 0.5 MG PO DAILY 03/22/07 Diet: Regular Activity: As Tolerated Problem Qualifiers (1) Type 2 diabetes mellitus: Diabetes mellitus intermediate insulin use: with intermediate use Diabetes mellitus complication status: with kidney complications Diabetes mellitus complication detail: with chronic kidney disease Chronic kidney disease stage: on chronic dialysis Qualified Codes: E11.22 - Type 2 diabetes mellitus with diabetic chronic kidney disease; N18.6 - End stage renal disease; Z79.4 - MCFP (current) use of insulin; Z99.2 - Dependence on renal dialysis (2) Crohn disease: Gastrointestinal tract location: small intestine Digestive disease complication type: with intestinal obstruction Qualified Codes: K50.012 - Crohn's disease of small intestine with intestinal obstruction WES RUTH MD Apr 10, 2018 17:54
[2018-04-25] MEDS ORDERED: CYANOCOBALAMIN 1000MCG/ML VIAL IM ONLY SCH (09:00)
== END 2018-04-10 18:25 | disposition home or self-care (01) ==
LOC: ER 04:16 → INTOOBSV 07:25 → MED 07:25
PROVIDERS: ADMIT Surgery; ATTEND Surgery
DX: K56.609 Unspecified intestinal obstruction, unspecified as to partial versus complete obstruction (principal); E11.9 Type 2 diabetes mellitus without complications; E11.22 Type 2 diabetes mellitus with diabetic chronic kidney disease; I12.9 Hypertensive chronic kidney disease with stage 1 through stage 4 chronic kidney disease, or unspecified chronic kidney disease; N18.4 Chronic kidney disease, stage 4 (severe); K50.90 Crohn's disease, unspecified, without complications
CPT/HCPCS: 36415; 36416; 74018; 74177; 82150; 82948; 83605; 83690; 83735; 84100; 85025; 96374; 99284; A9270; G0378; J1815; J2270; J7030; Q9967; 82040; 82247; 82310; 82374; 82435; 82565; 82947; 84075; 84132; 84155; 84295; 84450; 84460; 84520; 96372

== ENCOUNTER → 2018-04-15 | Outpatient (CLI) | payer MEDICARE, BC ==
[2017-02-18 08:45] VITALS: BMI 24.5
== END ==
LOC: LAB 11:43
PROVIDERS: ATTEND Internal Medicine Cardiovascular Disease
DX: I25.10 Atherosclerotic heart disease of native coronary artery without angina pectoris (principal)
CPT/HCPCS: 36415; 83880

== ENCOUNTER → 2018-06-09 | Outpatient (CLI) | payer MEDICARE, BC ==
[2017-02-18 08:45] VITALS: BMI 24.5
[~2018-06-09] MED LIST changes: +GADOBENATE 529MG/1ML 15ML VIAL IVP ONE; -HYDR-4309 PO; +HYDR-653 PO; +NS(*) 0.9% 50 ML BAG 50 ML ONE
--- NOTE | 2018-06-09 11:30 | RADIOLOGY IMAGING REPORT ---
FACILITY: [facility] - [place] PATIENT NAME: Wei Osman : 1945 MR: [id number] V: [id number] EXAM DATE: ORDERING PHYSICIAN: ABNER RANDOLPH TECHNOLOGIST: Location: [facility] - [place] Patient: Wei Osman : 1945 Visit/Account:[id number] Date of Sevice: 06/09/2018 Study: ORBITS FOREIGN BODY 1 VIEW Indication: MRI screening Comparison study: None Findings: A single view of the orbits demonstrates no evidence of metallic foreign body overlying th e orbits. There is calcification of the falx incidentally noted. No significant bony abnormality is identified. IMPRESSION: No evidence of metallic foreign body overlying the orbits. Report Dictated By: Kavin Bell at 06/09/2018 11:24 AM Report E-Signed By: Kavin Bell at 06/09/2018 11:25 AM WSN:[id number]
--- NOTE | 2018-06-09 13:24 | RADIOLOGY IMAGING REPORT ---
FACILITY: [facility] PATIENT NAME: Wei Osman : 1945 MR: [id number] V: [id number] EXAM DATE: ORDERING PHYSICIAN: ABNER RANDOLPH TECHNOLOGIST: Location: [facility] - [place] Patient: Wei Osman : 1945 Visit/Account:[id number] Date of Sevice: 06/09/2018 EXAMINATION: MRI abdomen without IV contrast MRI abdomen with IV contrast MRCP 06/09/2018 11:00 AM HISTORY: Low-density lesion in the uncinate process of the pancreas TECHNIQUE: Multiplanar multisequence imaging of the abdomen was performed including thin slice heavil y T2-weighted MRCP sequencing. 3-D imaging was performed according to protocols developed by the rad iologists and the facility radiology staff. Hadoop Application Developer images are stored on PACS. Contrast: 15 mL of IV MultiHance. COMPARISON STUDIES: CTs 04/09/2018, 10/07/2017, 08/08/2017 and 05/28/2017 FINDINGS: Gallbladder bile ducts: Gallbladder is at least borderline hydropic measuring 8.9 x 4.5 x 5.1 cm. S mall stones in the gallbladder. No wall thickening or edema. Normal caliber CBD at 4 mm without vis ible choledocholithiasis. Liver: negative Pancreas: At least a tiny cysts are scattered throughout the pancreas. Largest in the pancreatic hea d measures 5 to 6 mm. A 5 mm cyst in the uncinate process correlates with the previously shown struc ture which was 1.4 cm in 2017 and is presumptively benign given this decrease. No solid pancreatic m ass. Duct is not dilated. Spleen: Incidental accessory splenule adjacent to the hilus. Adrenal glands: negative Kidneys / retroperitoneum: negative Bowel / peritoneum / mesenteries: negative Vessels: negative Musculoskeletal / Body wall: negative Lymph node assessment: negative Lower chest: negative IMPRESSION: 1. 5 mm cyst in the uncinate process of the pancreas has substantially diminished in size since 2017 consistent with a benign focus. Multiple additional tiny cysts are scattered elsewhere in the pancr eas, likely postinflammatory. 2. Cholecystolithiasis. Gallbladder is at least borderline hydropic but does not appear to be acute ly inflamed. Report Dictated By: Nikita Guardado MD at 06/09/2018 1:03 PM Report E-Signed By: Nikita Guardado MD at 06/09/2018 1:20 PM WSN:[email or web address]
== END ==
LOC: MRI 01:54
PROVIDERS: ATTEND Nurse Practitioner Family
DX: K80.20 Calculus of gallbladder without cholecystitis without obstruction (principal)
CPT/HCPCS: 70030; 74183; A9577; J7050

== ENCOUNTER → 2018-06-15 | Outpatient (REF) | payer MEDICARE, BC ==
[2017-02-18 08:45] VITALS: BMI 24.5
[~2018-06-15] MED LIST changes: -GADOBENATE 529MG/1ML 15ML VIAL IVP ONE; -NS(*) 0.9% 50 ML BAG 50 ML ONE
== END ==
LOC: ZZSENDIN 12:51
PROVIDERS: ATTEND Nurse Practitioner Family
DX: K52.3 Indeterminate colitis (principal); R19.7 Diarrhea, unspecified; Q45.3 Other congenital malformations of pancreas and pancreatic duct; I10 Essential (primary) hypertension
CPT/HCPCS: 86140

== ENCOUNTER 2018-06-24 12:11 | Outpatient (RCR) | payer MEDICARE, BC ==
[2017-02-18 08:45] VITALS: BMI 24.5
[~2018-06-24 12:11] MED LIST changes: +DILT120C12 PO; -DILT120C18 PO
[2018-06-24] MEDS: CYANOCOBALAMIN 1000MCG/ML VIAL IM ONLY PRN (12:34)
[2018-07-08] MEDS ORDERED: HYDR50TA35 PO (19:10)
[2018-07-25] MEDS: CYANOCOBALAMIN 1000MCG/ML VIAL IM ONLY PRN (12:38)
== END 2018-07-27 14:10 | disposition home or self-care (01) ==
LOC: SPU 12:11
PROVIDERS: ATTEND Internal Medicine Hematology
DX: D69.6 Thrombocytopenia, unspecified (principal); N18.9 Chronic kidney disease, unspecified
CPT/HCPCS: 96372; J3420

== ENCOUNTER 2018-07-07 05:34 | Emergency (ER) | payer MEDICARE, BC ==
[2017-02-18 08:45] VITALS: Wt 68.9 kg
--- NOTE | 2018-07-07 05:54 | ER Report ---
History and Physical Time Seen By MD: 05:54 Hx. of Stated Complaint: dressing covering fistula is saturated. pt states the bleeding has been going on for a couple of days , started dripping through dressing this am HPI/ROS CHIEF COMPLAINT: surgical area of the right arm bleeding HISTORY OF PRESENT ILLNESS: This is a 72 year old male. He had surgery with Dr. Barreto in [place] for a new graft for his dialysis access. Bleeding problems with poor platelets. Continued to ooze since the procedure. Dressing soaking through and continuing to saturate and drip. Allergies: Coded Allergies: Iodinated Contrast- Oral and IV Dye (Verified Adverse Reaction, Mild, Itching, 04/09/18) Home Meds Active Scripts [B12] No Conflict Check, 1000 MCG IM Monthly, #22 MCG 1 Refill Inject 1000mcg monthly Prov:SATHISH HENRY USED CAR RENOVATOR-BC, ONC 04/06/16 Reported Medications Clopidogrel Bisulfate (PLAVIX) 75 Mg Tablet, 1 TAB PO QDAY, TAB 03/04/18 Vitamin B Cmplx/Vit C/Folic Ac (TRIPHROCAPS SOFTGEL) 1 Each Cap, 1 EACH PO DAILY, CAP 02/21/18 Calcium Carbonate (CALCIUM CARBONATE) 500 Mg Tablet, 500 MG PO TIDCF 02/21/18 Diltiazem Hcl (CARTIA XT) 240 Mg Cap.er.24h, 240 MG PO QPM 02/21/18 Loperamide Hcl (LOPERAMIDE) 2 Mg Tablet, 2 MG PO PRN PRN for DIARRHEA 02/21/18 Insulin Glargine (LANTUS) 100 Unit/Ml Soln, 4 UNIT SUBQ QDAY, ML 4 units with dinner 02/18/18 Mesalamine (PENTASA) 250 Mg Capcr, 1000 MG PO BID 01/17/18 Insulin Glargine (LANTUS) 100 Unit/Ml Soln, 25 UNIT SUBQ QAM, ML 08/08/17 Furosemide (LASIX) 40 Mg Tablet, 80 MG PO non dialysis days, TAB take 40mg by mouth on non dialysis days (T, Sonali, Sat, and Sun) 10/15/15 Vit A,C & E/Lutein/Minerals (OCUVITE TABLET) 1 Each Tablet, 1 EACH PO DAILY 06/22/15 Pentoxifylline (PENTOXIFYLLINE) 400 Mg Tabsr, 400 MG PO BID 03/13/15 Hydralazine Hcl (HYDRALAZINE HCL) 50 Mg Tablet, 50 MG PO TID, TAB 03/13/15 Dicyclomine Hcl (DICYCLOMINE HCL) 20 Mg Tablet, 20 MG PO QID 01/23/15 Levothyroxine Sodium (LEVOTHYROXINE SODIUM) 25 Mcg Tablet, 25 MCG PO QDAY 07/09/13 Pravastatin Sodium (PRAVASTATIN SODIUM) 20 Mg Tablet, 10 MG PO QDAY 07/09/13 Aspirin (Adult Aspirin) 81 Mg Tab.chew, 81 MG PO DAILY 03/22/07 Anagrelide Hcl (Agrylin) 0.5 Mg Capsule, 0.5 MG PO DAILY 03/22/07 Reviewed Nurses Notes: Yes Hx Smoking: No (CHEWS 1 CAN Q 3 DAYS FOR 40 YEARS. SMOKED AGE 18 TO 23) Smoking Status: Former Smoker Exposure to Second Hand Smoke?: No Hx Substance Use Disorder: No Hx Alcohol Use: Yes Constitutional Vital Sign - Last 24 Hours 07/07/18 07/07/18 07/07/18 07/07/18 05:42 05:42 06:00 07:00 Temp 97.5 Pulse 106 Resp 16 B/P (MAP) 137/66 (89) 137/66 129/79 (96) 126/60 (82) Pulse Ox 97 O2 Delivery Room Air Physical Exam General: Alert and oriented. No distress. Skin: Dressing soaked and dripping through the Tegaderm. Incision is together, with a small area about 1cm on the longer incision which continues to ooze. The smaller incision has a small area of 1cm that is oozing. Bruising of the skin. Medical Decision Making ED Course/Re-evaluation ED Course Dermabond applied after cleaning the skin with prep and then holding pressure. Generous application over the wounds. Seems to be controlling the bleeding. Decision to Disposition Date: Jul 07, 2018 Decision to Disposition Time: 06:54 Depart Departure Latest Vital Signs Vital Signs Date Time Temp Pulse Resp B/P (MAP) Pulse Ox O2 Delivery O2 Flow Rate FiO2 07/07/18 07:00 126/60 (82) 07/07/18 05:42 97.5 106 16 97 Room Air Impression: Primary Impression: Problem involving surgical incision Condition: Improved Disposition: HOME OR SELF-CARE Referrals: MEENAKSHI JENKINS (PCP) GATITO MURRAY MD Jul 07, 2018 05:54
[2018-07-07] MEDS ORDERED: OCTYL CYANOACRYLATE 1 APP APPL TP ONE (06:20)
[2018-07-07 07:00] VITALS: BP 126/60
[2018-07-08] MEDS ORDERED: HYDR50TA35 PO (19:10)
== END 2018-07-07 07:34 | disposition home or self-care (01) ==
LOC: ER 06:21
DX: L76.22 Postprocedural hemorrhage of skin and subcutaneous tissue following other procedure (principal)
CPT/HCPCS: 99283

== ENCOUNTER 2018-07-08 18:55 | Emergency (ER) | payer MEDICARE, BC ==
[2017-02-18 08:45] VITALS: Wt 69.9 kg
--- NOTE | 2018-07-08 19:02 | ER Report ---
History and Physical Time Seen By MD: 19:02 HPI/ROS CHIEF COMPLAINT: surgical wound bleeding through the dermabond. HISTORY OF PRESENT ILLNESS: 72 year old male. Here a few days ago, dermabond applied to surgical wound for new port to control bleeding, now with a few spots leaking through. Allergies: Coded Allergies: Iodinated Contrast- Oral and IV Dye (Verified Adverse Reaction, Mild, Itching, 04/09/18) Home Meds Active Scripts [B12] No Conflict Check, 1000 MCG IM Monthly, #22 MCG 1 Refill Inject 1000mcg monthly Prov:SATHISH HENRY DUTY ENGINEER-BC, ONC 04/06/16 Reported Medications Hydralazine Hcl (HYDRALAZINE HCL) 50 Mg Tablet, 50 MG PO QDAY, TAB 07/08/18 Clopidogrel Bisulfate (PLAVIX) 75 Mg Tablet, 1 TAB PO QDAY, TAB 03/04/18 Vitamin B Cmplx/Vit C/Folic Ac (TRIPHROCAPS SOFTGEL) 1 Each Cap, 1 EACH PO DAILY, CAP 02/21/18 Calcium Carbonate (CALCIUM CARBONATE) 500 Mg Tablet, 500 MG PO TIDCF 02/21/18 Diltiazem Hcl (CARTIA XT) 240 Mg Cap.er.24h, 240 MG PO QPM 02/21/18 Loperamide Hcl (LOPERAMIDE) 2 Mg Tablet, 2 MG PO PRN PRN for DIARRHEA 02/21/18 Insulin Glargine (LANTUS) 100 Unit/Ml Soln, 4 UNIT SUBQ QDAY, ML 4 units with dinner 02/18/18 Mesalamine (PENTASA) 250 Mg Capcr, 1000 MG PO BID 01/17/18 Insulin Glargine (LANTUS) 100 Unit/Ml Soln, 25 UNIT SUBQ QAM, ML 08/08/17 Furosemide (LASIX) 40 Mg Tablet, 80 MG PO non dialysis days, TAB take 40mg by mouth on non dialysis days (T, Sonali, Sat, and Sun) 10/15/15 Vit A,C & E/Lutein/Minerals (OCUVITE TABLET) 1 Each Tablet, 1 EACH PO DAILY 06/22/15 Pentoxifylline (PENTOXIFYLLINE) 400 Mg Tabsr, 400 MG PO BID 03/13/15 Dicyclomine Hcl (DICYCLOMINE HCL) 20 Mg Tablet, 20 MG PO QID 01/23/15 Levothyroxine Sodium (LEVOTHYROXINE SODIUM) 25 Mcg Tablet, 25 MCG PO QDAY 07/09/13 Pravastatin Sodium (PRAVASTATIN SODIUM) 20 Mg Tablet, 10 MG PO QDAY 07/09/13 Aspirin (Adult Aspirin) 81 Mg Tab.chew, 81 MG PO DAILY 03/22/07 Anagrelide Hcl (Agrylin) 0.5 Mg Capsule, 0.5 MG PO DAILY 03/22/07 Discontinued Reported Medications Hydralazine Hcl (HYDRALAZINE HCL) 50 Mg Tablet, 50 MG PO TID, TAB 03/13/15 Hx Smoking: No (CHEWS 1 CAN Q 3 DAYS FOR 40 YEARS. SMOKED AGE 18 TO 23) Smoking Status: Former Smoker Exposure to Second Hand Smoke?: No Hx Substance Use Disorder: No Hx Alcohol Use: Yes Constitutional Vital Sign - Last 24 Hours 07/08/18 19:03 Temp 97.7 Pulse 103 Resp 15 B/P (MAP) 131/117 Pulse Ox 98 O2 Delivery Room Air Medical Decision Making ED Course/Re-evaluation ED Course Cleaned with skin prep, then reapplied dermabond to the areas that were leaking. controlled and re-dressed. Decision to Disposition Date: Jul 08, 2018 Decision to Disposition Time: 20:09 Depart Departure Latest Vital Signs Vital Signs Date Time Temp Pulse Resp B/P (MAP) Pulse Ox O2 Delivery O2 Flow Rate FiO2 07/08/18 19:03 97.7 103 15 131/117 98 Room Air Impression: Primary Impression: Problem involving surgical incision Condition: Improved Disposition: HOME OR SELF-CARE Referrals: MEENAKSHI JENKINS (PCP) GATITO MURRAY MD Jul 08, 2018 19:02
[2018-07-08 19:03] VITALS: BP 131/117
[2018-07-08] MEDS ORDERED: HYDR50TA35 PO (19:10)
== END 2018-07-08 20:14 | disposition home or self-care (01) ==
LOC: ER 19:04
DX: L76.82 Other postprocedural complications of skin and subcutaneous tissue (principal)
CPT/HCPCS: 99283

== ENCOUNTER 2018-07-09 09:21 | Emergency (ER) | payer MEDICARE, BC ==
[2017-02-18 08:45] VITALS: Wt 70.8 kg
[2018-07-09 09:30] VITALS: BP 118/51
--- NOTE | 2018-07-09 09:30 | ER Report ---
History and Physical Time Seen By MD: 09:25 HPI/ROS CHIEF COMPLAINT: Incision leaking blood HISTORY OF PRESENT ILLNESS: Patient is a 72-year-old male who had a revision of his dialysis shunt performed in [place] he was seen here in the department both in the and again on the for for bleeding through his incision site. Both instances Dermabond was applied topically after the area was cleansed. He has continued to leak soaking blood. Patient does have a history of low platelets. He denies any symptoms including dizziness chest pain or shortness of breath. Denies any infectious type symptoms including erythema from the wound or fevers or chills. REVIEW OF SYSTEMS: Respiratory: No cough, no dyspnea. Cardiovascular: No chest pain, no palpitations. Gastrointestinal: No vomiting, no abdominal pain. Musculoskeletal: No back pain. Home Meds Active Scripts [B12] No Conflict Check, 1000 MCG IM Monthly, #22 MCG 1 Refill Inject 1000mcg monthly Prov:SATHISH HENRY PLANTING MATERIAL UNLOADER-BC, ONC 04/06/16 Reported Medications Hydralazine Hcl (HYDRALAZINE HCL) 50 Mg Tablet, 50 MG PO QDAY, TAB 07/08/18 Clopidogrel Bisulfate (PLAVIX) 75 Mg Tablet, 1 TAB PO QDAY, TAB 03/04/18 Vitamin B Cmplx/Vit C/Folic Ac (TRIPHROCAPS SOFTGEL) 1 Each Cap, 1 EACH PO DAILY, CAP 02/21/18 Calcium Carbonate (CALCIUM CARBONATE) 500 Mg Tablet, 500 MG PO TIDCF 02/21/18 Diltiazem Hcl (CARTIA XT) 240 Mg Cap.er.24h, 240 MG PO QPM 02/21/18 Loperamide Hcl (LOPERAMIDE) 2 Mg Tablet, 2 MG PO PRN PRN for DIARRHEA 02/21/18 Insulin Glargine (LANTUS) 100 Unit/Ml Soln, 4 UNIT SUBQ QDAY, ML 4 units with dinner 02/18/18 Mesalamine (PENTASA) 250 Mg Capcr, 1000 MG PO BID 01/17/18 Insulin Glargine (LANTUS) 100 Unit/Ml Soln, 25 UNIT SUBQ QAM, ML 08/08/17 Furosemide (LASIX) 40 Mg Tablet, 80 MG PO non dialysis days, TAB take 40mg by mouth on non dialysis days (T, Sonali, Sat, and Sun) 10/15/15 Vit A,C & E/Lutein/Minerals (OCUVITE TABLET) 1 Each Tablet, 1 EACH PO DAILY 06/22/15 Pentoxifylline (PENTOXIFYLLINE) 400 Mg Tabsr, 400 MG PO BID 03/13/15 Dicyclomine Hcl (DICYCLOMINE HCL) 20 Mg Tablet, 20 MG PO QID 01/23/15 Levothyroxine Sodium (LEVOTHYROXINE SODIUM) 25 Mcg Tablet, 25 MCG PO QDAY 07/09/13 Pravastatin Sodium (PRAVASTATIN SODIUM) 20 Mg Tablet, 10 MG PO QDAY 07/09/13 Aspirin (Adult Aspirin) 81 Mg Tab.chew, 81 MG PO DAILY 03/22/07 Anagrelide Hcl (Agrylin) 0.5 Mg Capsule, 0.5 MG PO DAILY 03/22/07 Discontinued Reported Medications Hydralazine Hcl (HYDRALAZINE HCL) 50 Mg Tablet, 50 MG PO TID, TAB 03/13/15 Past Medical/Surgical History Past medical history significant for hypertension, insulin-dependent diabetes, peripheral neuropathy, end-stage renal disease on dialysis, history of anemia Hx Smoking: No (CHEWS 1 CAN Q 3 DAYS FOR 40 YEARS. SMOKED AGE 18 TO 23) Smoking Status: Former Smoker Exposure to Second Hand Smoke?: No Hx Substance Use Disorder: No Hx Alcohol Use: Yes Constitutional Vital Sign - Last 24 Hours 07/09/18 09:27 Temp 98.6 Pulse 79 Resp 20 B/P (MAP) 119/48 Pulse Ox 98 O2 Delivery Room Air Physical Exam General appearance: Alert no distress. Respiratory: Chest is non tender, lungs are clear to auscultation. Cardiac: Regular rate and rhythm [ ] Examination of the right upper extremity shows an area of AV fistula with Dermabond over top over the voler surface of the bicep is intact and shows no signs of infections and has no active bleeding and then on the internal aspect of the arm bicep area there is an opened 10 cm surgical incision that has iopened, dermabond is no occlusive of the incision and that site is oozing blood. Some internal stitches are visible. There is no evidence of signs of infection. No purulent discharge no erythema to the incision site whatsoever. Medical Decision Making Data Points Result Diagram: 12/15/18 0949 Laboratory Hematology Test 12/15/18 09:49 Red Blood Count 2.72 M/uL (4.00-5.60) Mean Corpuscular Volume 93.2 fL (80.0-96.0) Mean Corpuscular Hemoglobin 31.1 pg (26.0-33.0) Mean Corpuscular Hemoglobin Concent 33.4 g/dL (32.0-36.0) Red Cell Distribution Width 17.9 % (11.5-14.5) Mean Platelet Volume 9.9 fL (7.2-11.1) Neutrophils (%) (Auto) 86.2 % (39.4-72.5) Lymphocytes (%) (Auto) 7.6 % (17.6-49.6) Monocytes (%) (Auto) 4.3 % (4.1-12.4) Eosinophils (%) (Auto) 1.4 % (0.4-6.7) Basophils (%) (Auto) 0.5 % (0.3-1.4) Nucleated RBC Relative Count (auto) 0.0 /100WBC Neutrophils # (Auto) 15.4 K/uL (2.0-7.4) Lymphocytes # (Auto) 1.3 K/uL (1.3-3.6) Monocytes # (Auto) 0.8 K/uL (0.3-1.0) Eosinophils # (Auto) 0.3 K/uL (0.0-0.5) Basophils # (Auto) 0.1 K/uL (0.0-0.1) Nucleated RBC Absolute Count (auto) 0.01 K/uL Peripheral Blood Smear No Y/N Chemistry Test 07/09/18 09:49 White Blood Count 17.8 k/uL (4.5-11.0) Red Blood Count 2.72 M/uL (4.00-5.60) Hemoglobin 8.5 g/dL (14.0-18.0) Hematocrit 25.4 % (42.0-52.0) Mean Corpuscular Volume 93.2 fL (80.0-96.0) Mean Corpuscular Hemoglobin 31.1 pg (26.0-33.0) Mean Corpuscular Hemoglobin Concent 33.4 g/dL (32.0-36.0) Red Cell Distribution Width 17.9 % (11.5-14.5) Platelet Count 232 K/uL (150-450) Mean Platelet Volume 9.9 fL (7.2-11.1) Neutrophils (%) (Auto) 86.2 % (39.4-72.5) Lymphocytes (%) (Auto) 7.6 % (17.6-49.6) Monocytes (%) (Auto) 4.3 % (4.1-12.4) Eosinophils (%) (Auto) 1.4 % (0.4-6.7) Basophils (%) (Auto) 0.5 % (0.3-1.4) Nucleated RBC Relative Count (auto) 0.0 /100WBC Neutrophils # (Auto) 15.4 K/uL (2.0-7.4) Lymphocytes # (Auto) 1.3 K/uL (1.3-3.6) Monocytes # (Auto) 0.8 K/uL (0.3-1.0) Eosinophils # (Auto) 0.3 K/uL (0.0-0.5) Basophils # (Auto) 0.1 K/uL (0.0-0.1) Nucleated RBC Absolute Count (auto) 0.01 K/uL Peripheral Blood Smear No Y/N ED Course/Re-evaluation ED Course 07/09/2018 10:15:51 am because this is the 3rd visit in approximately 24 hours and the wound appears to be gapped open I do not feel Dermabond will be an appropriate closure method as there is too much oozing of blood and the Dermabond will require. Dry time in order to become intact. Further the wound is widened at this time and do not feel that we will be able to successfully closed with skin adhesive. Plan at this time will be primary closure with sutures and follow-up with his vascular surgeon. Procedure: Laceration repair. Verbal consent was obtained from the patient. The 10 centimeter laceration on the location total aspect of the right upper arm was anesthetized in the usual fashion. The wound was cleansed, draped and prepped sterilely.[ ] There were no deep structures involved. No tendon injury was identified. The wound was repaired with 2 running stitches and one single interrupted stitch. The wound repair was complex. The procedure was performed by myself. The area was then cleansed after the procedure Surgicel was applied over top of the incision repair all of by a padded gauze dressing and then pad was in place by gauze that was loosely wrapped around the repair site. 07/09/2018 10:52:38 am patient has had no evidence of further bleeding from surgical incision site. Plan at this time will be discharged home. Decision to Disposition Date: Jul 09, 2018 Decision to Disposition Time: 10:52 Depart Departure Latest Vital Signs Vital Signs Date Time Temp Pulse Resp B/P (MAP) Pulse Ox O2 Delivery O2 Flow Rate FiO2 07/09/18 09:27 98.6 79 20 119/48 98 Room Air Impression: Primary Impression: Wound dehiscence Additional Impression: Anemia Condition: Improved Disposition: HOME OR SELF-CARE Referrals: MEENAKSHI JENKINS (PCP) Patient Instructions: Acute Wound Care (ED) Additional Instructions: Hemoglobin today was a 8.5 mg/dL Keep dressing clean dry and intact until dialysis on Wednesday. If the wound starts to bleed return to the emergency department for reevaluation. He develop any signs or symptoms of infection he should return to the emergency department immediately this would include fevers, chills, redness from the surgical site. Problem Qualifiers Additional Impression: Anemia Anemia type: unspecified type Qualified Codes: D64.9 - Anemia, unspecified GRADY MACK MD Jul 09, 2018 09:30
[2018-07-09] MEDS ORDERED: TETRACAIN/EPI/LIDO GEL 3ML SYR TP ONE (09:35)
[2018-07-09] MEDS ORDERED: LIDO/EPI 2% MDV 1:100,000 20ML INFIL ONE (09:45)
[2018-07-09 10:05] LABS: PLATELET COUNT, AUTOMATED 232 K/uL (150-450)
== END 2018-07-09 11:05 | disposition home or self-care (01) ==
LOC: ER 09:35
DX: T81.30XA Disruption of wound, unspecified, initial encounter (principal); D64.9 Anemia, unspecified
CPT/HCPCS: 36415; 85025; 86850; 86900; 86901; 99283

== ENCOUNTER → 2018-07-11 | Outpatient (REF) | payer MEDICARE, BC ==
[2017-02-18 08:45] VITALS: BMI 24.5
== END ==
LOC: ZZSENDIN 12:20
DX: R97.20 Elevated prostate specific antigen [PSA] (principal)
CPT/HCPCS: 84153

== ENCOUNTER 2018-07-27 10:15 | Outpatient (RCR) | payer MEDICARE, BC ==
[2017-02-18 08:45] VITALS: BMI 24.5
[~2018-07-27 10:15] MED LIST changes: -CALC-488 PO; +CALC-743 PO; +DARBEPOETIN ESRD 25 MCG/ML IVP PRN; +DIALYSIS ACETAMINOPHEN 325 MG PO PRN; +LIDOCAINE/SOD BICARB 8.4% SYR SC PRN; +NS 0.9% IVPB PRN; -PENT400T57 PO; +PENT400T83 PO; +PROMETHAZINE HCL 25 MG TAB PO PRN; +VANCOMYCIN IVPB PRN; +diphenhydr DIALYSIS 50 MG/ML IVP PRN
[2018-07-27] MEDS: HEPARIN (PORCINE) 1000 UNIT/ML (DIALYSIS) IVP PRN ×2 (11:44)
[2018-07-27] MEDS: LOPERAMIDE HCL 2 MG CAP PO PRN (11:48)
[2018-07-27] MEDS: PARICALCITOL 2 MCG/ML VIAL IVP PRN (11:58)
[2018-07-27] MEDS: SODIUM FERRIC GLUC 62.5 MG/5ML IVP PRN (11:58)
[2018-07-27] MEDS: GENTAMICIN/NS 80 MG/100 ML PB 100 ML IVPB PRN (15:49)
[2018-07-29] MEDS ORDERED: VANCOMYCIN IVPB PRN (07:15)
[2018-07-29] MEDS ORDERED: NS 0.9% IVPB PRN (07:15)
[2018-07-29] MEDS: HEPARIN (PORCINE) 1000 UNIT/ML (DIALYSIS) IVP PRN ×2 (11:51)
[2018-07-29] MEDS: PARICALCITOL 2 MCG/ML VIAL IVP PRN (12:36)
[2018-07-29] MEDS: DARBEPOETIN ESRD 25 MCG/ML IVP PRN (12:36)
[2018-07-29] MEDS: GENTAMICIN/NS 80 MG/100 ML PB 100 ML IVPB PRN (15:46)
[2018-08-01] MEDS: HEPARIN (PORCINE) 1000 UNIT/ML (DIALYSIS) IVP PRN ×2 (11:45)
[2018-08-01] MEDS: PARICALCITOL 2 MCG/ML VIAL IVP PRN (12:26)
[2018-08-01] MEDS: GENTAMICIN/NS 80 MG/100 ML PB 100 ML IVPB PRN (15:21)
[2018-08-01] MEDS: WATER STERILE 10 ML VIAL IVP PRN (15:52)
[2018-08-01] MEDS: ALTEPLASE RECOMB 2 MG VIAL IVP PRN (15:52)
[2018-08-03] MEDS: HEPARIN (PORCINE) 1000 UNIT/ML (DIALYSIS) IVP PRN ×2 (11:47)
[2018-08-03] MEDS: PARICALCITOL 2 MCG/ML VIAL IVP PRN (12:26)
[2018-08-03] MEDS: SODIUM FERRIC GLUC 62.5 MG/5ML IVP PRN (12:26)
[2018-08-05] MEDS: HEPARIN (PORCINE) 1000 UNIT/ML (DIALYSIS) IVP PRN ×2 (11:46→11:47)
[2018-08-05] MEDS: DARBEPOETIN ESRD 25 MCG/ML IVP PRN (12:20)
[2018-08-05] MEDS: PARICALCITOL 2 MCG/ML VIAL IVP PRN (12:20)
[2018-08-08] MEDS: HEPARIN (PORCINE) 1000 UNIT/ML (DIALYSIS) IVP PRN ×2 (11:47)
[2018-08-08] MEDS: PARICALCITOL 2 MCG/ML VIAL IVP PRN (13:24)
[2018-08-08] MEDS ORDERED: GENTAMICIN/NS 80 MG/100 ML PB 100 ML IVPB PRN (16:45)
[2018-08-08] MEDS ORDERED: [UNRECOGNIZED DRUG - OTHER] IVPB ONE (17:00)
[2018-08-08] MEDS ORDERED: VANCOMYCIN IVPB ONE (17:00)
[2018-08-10] MEDS ORDERED: VANCOMYCIN IVPB PRN
[2018-08-10] MEDS ORDERED: ADDVIAL IVPB PRN
[2018-08-10] MEDS ORDERED: NS 0.9% IVPB PRN
[2018-08-10] MEDS: HEPARIN (PORCINE) 1000 UNIT/ML (DIALYSIS) IVP PRN ×2 (11:48)
[2018-08-10] MEDS: SODIUM FERRIC GLUC 62.5 MG/5ML IVP PRN (12:34)
[2018-08-10] MEDS: PARICALCITOL 2 MCG/ML VIAL IVP PRN (12:34)
[2018-08-10] MEDS: GENTAMICIN IVPB PRN (16:15)
[2018-08-10] MEDS: NS 0.9% IVPB PRN ×2 (16:15→16:17)
[2018-08-10] MEDS: ADDVIAL IVPB PRN (16:17)
[2018-08-10] MEDS: VANCOMYCIN IVPB PRN (16:17)
[2018-08-12] MEDS: HEPARIN (PORCINE) 1000 UNIT/ML (DIALYSIS) IVP PRN ×2 (11:55)
[2018-08-12] MEDS: PARICALCITOL 2 MCG/ML VIAL IVP PRN (12:42)
[2018-08-12] MEDS: DARBEPOETIN ESRD 25 MCG/ML IVP PRN (12:42)
[2018-08-12] MEDS: NS 0.9% IVPB PRN ×2 (14:53→15:25)
[2018-08-12] MEDS: ADDVIAL IVPB PRN (14:53)
[2018-08-12] MEDS: VANCOMYCIN IVPB PRN (14:53)
[2018-08-12] MEDS: GENTAMICIN IVPB PRN (15:25)
[2018-08-15] MEDS: HEPARIN (PORCINE) 1000 UNIT/ML (DIALYSIS) IVP PRN ×2 (11:51)
[2018-08-15] MEDS: LOPERAMIDE HCL 2 MG CAP PO PRN (11:56)
[2018-08-15] MEDS: PARICALCITOL 2 MCG/ML VIAL IVP PRN (12:06)
[2018-08-15] MEDS: ADDVIAL IVPB PRN (14:50)
[2018-08-15] MEDS: VANCOMYCIN IVPB PRN (14:50)
[2018-08-15] MEDS: NS 0.9% IVPB PRN ×2 (14:50→15:22)
[2018-08-15] MEDS: GENTAMICIN IVPB PRN (15:22)
[2018-08-17] MEDS: HEPARIN (PORCINE) 1000 UNIT/ML (DIALYSIS) IVP PRN ×2 (11:46)
[2018-08-17] MEDS: SODIUM FERRIC GLUC 62.5 MG/5ML IVP PRN (12:17)
[2018-08-17] MEDS: PARICALCITOL 2 MCG/ML VIAL IVP PRN (12:17)
[2018-08-17 12:34] LABS: PLATELET COUNT, AUTOMATED 319 K/uL (150-450)
[2018-08-17] MEDS: ADDVIAL IVPB PRN (14:55)
[2018-08-17] MEDS: NS 0.9% IVPB PRN ×2 (14:55→15:24)
[2018-08-17] MEDS: VANCOMYCIN IVPB PRN (14:55)
[2018-08-17] MEDS: GENTAMICIN IVPB PRN (15:24)
[2018-08-19] MEDS: HEPARIN (PORCINE) 1000 UNIT/ML (DIALYSIS) IVP PRN ×2 (11:46)
[2018-08-19] MEDS: PARICALCITOL 2 MCG/ML VIAL IVP PRN (12:41)
[2018-08-19] MEDS ORDERED: VANCOMYCIN IVPB ONE (15:00)
[2018-08-19] MEDS ORDERED: NS 0.9% IVPB ONE (15:00)
[2018-08-19] MEDS ORDERED: GENTAMICIN/NS 80 MG/100 ML PB 100 ML IVPB ONE (15:00)
[2018-08-19] MEDS ORDERED: ADDVIAL IVPB ONE (15:00)
[2018-08-22] MEDS: HEPARIN (PORCINE) 1000 UNIT/ML (DIALYSIS) IVP PRN ×2 (11:47)
[2018-08-22] MEDS: PARICALCITOL 2 MCG/ML VIAL IVP PRN (13:17)
[2018-08-24] MEDS: HEPARIN (PORCINE) 1000 UNIT/ML (DIALYSIS) IVP PRN ×2 (11:47→11:48)
[2018-08-24] MEDS: SODIUM FERRIC GLUC 62.5 MG/5ML IVP PRN (12:24)
[2018-08-24] MEDS: PARICALCITOL 2 MCG/ML VIAL IVP PRN (12:24)
[2018-08-24] MEDS: VANCOMYCIN IVPB PRN (14:46)
[2018-08-24] MEDS: NS 0.9% IVPB PRN (14:46)
[2018-08-24] MEDS: ADDVIAL IVPB PRN (14:46)
[2018-08-26] MEDS: HEPARIN (PORCINE) 1000 UNIT/ML (DIALYSIS) IVP PRN ×2 (11:42)
[2018-08-26] MEDS: PARICALCITOL 2 MCG/ML VIAL IVP PRN (11:54)
[2018-08-26] MEDS: LOPERAMIDE HCL 2 MG CAP PO PRN (11:54)
[2018-08-26] MEDS: VANCOMYCIN IVPB PRN (14:38)
[2018-08-26] MEDS: NS 0.9% IVPB PRN (14:38)
[2018-08-26] MEDS: ADDVIAL IVPB PRN (14:38)
[2018-08-29] MEDS: HEPARIN (PORCINE) 1000 UNIT/ML (DIALYSIS) IVP PRN ×2 (11:46)
[2018-08-29] MEDS: PARICALCITOL 2 MCG/ML VIAL IVP PRN (13:38)
[2018-08-29] MEDS: ADDVIAL IVPB PRN (14:46)
[2018-08-29] MEDS: NS 0.9% IVPB PRN (14:46)
[2018-08-29] MEDS: VANCOMYCIN IVPB PRN (14:46)
[2018-08-31] MEDS: HEPARIN (PORCINE) 1000 UNIT/ML (DIALYSIS) IVP PRN ×2 (11:48)
[2018-08-31] MEDS: SODIUM FERRIC GLUC 62.5 MG/5ML IVP PRN (12:22)
[2018-08-31] MEDS: PARICALCITOL 2 MCG/ML VIAL IVP PRN (12:22)
[2018-08-31] MEDS: VANCOMYCIN IVPB PRN (14:43)
[2018-08-31] MEDS: NS 0.9% IVPB PRN (14:43)
[2018-08-31] MEDS: ADDVIAL IVPB PRN (14:43)
[2018-09-02] MEDS: HEPARIN (PORCINE) 1000 UNIT/ML (DIALYSIS) IVP PRN ×2 (11:43)
[2018-09-02] MEDS: PARICALCITOL 2 MCG/ML VIAL IVP PRN (12:09)
[2018-09-02] MEDS: NS 0.9% IVPB PRN (14:42)
[2018-09-02] MEDS: ADDVIAL IVPB PRN (14:42)
[2018-09-02] MEDS: VANCOMYCIN IVPB PRN (14:42)
[2018-09-02] MEDS ORDERED: HEPATITIS B(DIAL) VAC 20MCG/ML 1 ML VIAL IM ONLY ONE (15:30)
[2018-09-09] MEDS: HEPARIN (PORCINE) 1000 UNIT/ML (DIALYSIS) IVP PRN ×2 (13:26)
[2018-09-09] MEDS: PARICALCITOL 2 MCG/ML VIAL IVP PRN (13:51)
[2018-09-09] MEDS: SODIUM FERRIC GLUC 62.5 MG/5ML IVP PRN (13:51)
[2018-09-12] MEDS: HEPARIN (PORCINE) 1000 UNIT/ML (DIALYSIS) IVP PRN ×2 (11:50→11:51)
[2018-09-12] MEDS: PARICALCITOL 2 MCG/ML VIAL IVP PRN (12:42)
[2018-09-14] MEDS: HEPARIN (PORCINE) 1000 UNIT/ML (DIALYSIS) IVP PRN ×2 (11:47)
[2018-09-14] MEDS: SODIUM FERRIC GLUC 62.5 MG/5ML IVP PRN (12:04)
[2018-09-14] MEDS: PARICALCITOL 2 MCG/ML VIAL IVP PRN (12:04)
[2018-09-14 12:33] LABS: PLATELET COUNT, AUTOMATED 277 K/uL (150-450)
[2018-09-16] MEDS: HEPARIN (PORCINE) 1000 UNIT/ML (DIALYSIS) IVP PRN ×2 (11:54)
[2018-09-16] MEDS: PARICALCITOL 2 MCG/ML VIAL IVP PRN (12:17)
[2018-09-16] MEDS: LOPERAMIDE HCL 2 MG CAP PO PRN (12:17)
[2018-09-16] MEDS: ALTEPLASE RECOMB 2 MG VIAL IVP PRN (15:55)
[2018-09-19] MEDS: HEPARIN (PORCINE) 1000 UNIT/ML (DIALYSIS) IVP PRN ×2 (11:42→11:43)
[2018-09-19] MEDS: PARICALCITOL 2 MCG/ML VIAL IVP PRN (12:12)
[2018-09-21] MEDS: HEPARIN (PORCINE) 1000 UNIT/ML (DIALYSIS) IVP PRN ×2 (11:46→11:47)
[2018-09-21] MEDS: PARICALCITOL 2 MCG/ML VIAL IVP PRN (12:16)
[2018-09-21] MEDS: SODIUM FERRIC GLUC 62.5 MG/5ML IVP PRN (12:17)
[2018-09-23] MEDS: HEPARIN (PORCINE) 1000 UNIT/ML (DIALYSIS) IVP PRN ×2 (11:44)
[2018-09-23] MEDS: PARICALCITOL 2 MCG/ML VIAL IVP PRN (12:23)
[2018-09-26] MEDS: HEPARIN (PORCINE) 1000 UNIT/ML (DIALYSIS) IVP PRN ×2 (13:38)
[2018-09-26] MEDS: PARICALCITOL 2 MCG/ML VIAL IVP PRN (14:04)
[2018-09-28] MEDS: HEPARIN (PORCINE) 1000 UNIT/ML (DIALYSIS) IVP PRN ×2 (11:45)
[2018-09-28] MEDS: PARICALCITOL 2 MCG/ML VIAL IVP PRN (12:01)
[2018-09-28] MEDS: SODIUM FERRIC GLUC 62.5 MG/5ML IVP PRN (12:01)
[2018-09-28 12:16] LABS: PLATELET COUNT, AUTOMATED 229 K/uL (150-450)
[2018-09-30] MEDS: HEPARIN (PORCINE) 1000 UNIT/ML (DIALYSIS) IVP PRN ×2 (11:32→11:33)
[2018-09-30] MEDS: PARICALCITOL 2 MCG/ML VIAL IVP PRN (12:03)
[2018-09-30] MEDS: DARBEPOETIN ESRD 25 MCG/ML IVP PRN (12:04)
[2018-10-03] MEDS: HEPARIN (PORCINE) 1000 UNIT/ML (DIALYSIS) IVP PRN ×2 (11:45→11:46)
[2018-10-03] MEDS: PARICALCITOL 2 MCG/ML VIAL IVP PRN (12:23)
[2018-10-05] MEDS: HEPARIN (PORCINE) 1000 UNIT/ML (DIALYSIS) IVP PRN ×2 (11:48)
[2018-10-05] MEDS: PARICALCITOL 2 MCG/ML VIAL IVP PRN (12:32)
[2018-10-05] MEDS: SODIUM FERRIC GLUC 62.5 MG/5ML IVP PRN (12:33)
[2018-10-07] MEDS: LOPERAMIDE HCL 2 MG CAP PO PRN (11:44)
[2018-10-07] MEDS: HEPARIN (PORCINE) 1000 UNIT/ML (DIALYSIS) IVP PRN ×2 (11:45)
[2018-10-07] MEDS: PARICALCITOL 2 MCG/ML VIAL IVP PRN (12:04)
[2018-10-07] MEDS: DARBEPOETIN ESRD 25 MCG/ML IVP PRN (12:04)
[2018-10-10] MEDS: HEPARIN (PORCINE) 1000 UNIT/ML (DIALYSIS) IVP PRN ×2 (11:45)
[2018-10-10] MEDS: PARICALCITOL 2 MCG/ML VIAL IVP PRN (12:08)
[2018-10-12] MEDS: HEPARIN (PORCINE) 1000 UNIT/ML (DIALYSIS) IVP PRN ×2 (11:43)
[2018-10-12] MEDS: PARICALCITOL 2 MCG/ML VIAL IVP PRN (12:03)
[2018-10-12] MEDS: SODIUM FERRIC GLUC 62.5 MG/5ML IVP PRN (12:03)
[2018-10-14] MEDS: HEPARIN (PORCINE) 1000 UNIT/ML (DIALYSIS) IVP PRN ×2 (11:44)
[2018-10-14] MEDS: DARBEPOETIN ESRD 25 MCG/ML IVP PRN (11:55)
[2018-10-14] MEDS: PARICALCITOL 2 MCG/ML VIAL IVP PRN (11:55)
[2018-10-17] MEDS: HEPARIN (PORCINE) 1000 UNIT/ML (DIALYSIS) IVP PRN ×2 (11:49)
[2018-10-17] MEDS: PARICALCITOL 2 MCG/ML VIAL IVP PRN (12:21)
[2018-10-19] MEDS: HEPARIN (PORCINE) 1000 UNIT/ML (DIALYSIS) IVP PRN ×2 (11:44)
[2018-10-19] MEDS: PARICALCITOL 2 MCG/ML VIAL IVP PRN (12:12)
[2018-10-19] MEDS: SODIUM FERRIC GLUC 62.5 MG/5ML IVP PRN (12:12)
[2018-10-21] MEDS: HEPARIN (PORCINE) 1000 UNIT/ML (DIALYSIS) IVP PRN ×2 (11:50)
[2018-10-21] MEDS: DARBEPOETIN ESRD 25 MCG/ML IVP PRN (12:15)
[2018-10-21] MEDS: PARICALCITOL 2 MCG/ML VIAL IVP PRN (12:15)
[2018-10-24] MEDS: HEPARIN (PORCINE) 1000 UNIT/ML (DIALYSIS) IVP PRN ×2 (11:39)
[2018-10-24] MEDS: PARICALCITOL 2 MCG/ML VIAL IVP PRN (12:27)
[2018-10-26] MEDS: HEPARIN (PORCINE) 1000 UNIT/ML (DIALYSIS) IVP PRN ×2 (11:53→11:54)
[2018-10-26] MEDS: PARICALCITOL 2 MCG/ML VIAL IVP PRN (12:48)
[2018-10-26] MEDS: SODIUM FERRIC GLUC 62.5 MG/5ML IVP PRN (12:48)
[2018-10-28] MEDS: HEPARIN (PORCINE) 1000 UNIT/ML (DIALYSIS) IVP PRN ×2 (11:46)
[2018-10-28] MEDS: PARICALCITOL 2 MCG/ML VIAL IVP PRN (11:53)
[2018-10-28] MEDS: DARBEPOETIN ESRD 25 MCG/ML IVP PRN (11:53)
[2018-10-31] MEDS: HEPARIN (PORCINE) 1000 UNIT/ML (DIALYSIS) IVP PRN ×2 (11:41)
[2018-10-31] MEDS: PARICALCITOL 2 MCG/ML VIAL IVP PRN (12:14)
[2018-11-02] MEDS: HEPARIN (PORCINE) 1000 UNIT/ML (DIALYSIS) IVP PRN ×2 (11:47)
[2018-11-02] MEDS: PARICALCITOL 2 MCG/ML VIAL IVP PRN (12:14)
[2018-11-02] MEDS: SODIUM FERRIC GLUC 62.5 MG/5ML IVP PRN (12:15)
[2018-11-04] MEDS: HEPARIN (PORCINE) 1000 UNIT/ML (DIALYSIS) IVP PRN ×2 (12:02)
[2018-11-04] MEDS: DARBEPOETIN ESRD 25 MCG/ML IVP PRN (12:16)
[2018-11-04] MEDS: LOPERAMIDE HCL 2 MG CAP PO PRN (12:16)
[2018-11-04] MEDS: PARICALCITOL 2 MCG/ML VIAL IVP PRN (12:16)
[2018-11-07] MEDS: HEPARIN (PORCINE) 1000 UNIT/ML (DIALYSIS) IVP PRN ×2 (13:59→14:00)
[2018-11-07] MEDS: PARICALCITOL 2 MCG/ML VIAL IVP PRN (14:33)
[2018-11-09] MEDS: HEPARIN (PORCINE) 1000 UNIT/ML (DIALYSIS) IVP PRN ×2 (12:19)
[2018-11-09] MEDS: SODIUM FERRIC GLUC 62.5 MG/5ML IVP PRN (12:52)
[2018-11-09] MEDS: PARICALCITOL 2 MCG/ML VIAL IVP PRN (12:52)
[2018-11-09 13:02] LABS: PLATELET COUNT, AUTOMATED 249 K/uL (150-450)
[2018-11-09] MEDS: ALTEPLASE RECOMB 2 MG VIAL IVP PRN (16:11)
[2018-11-09] MEDS: WATER STERILE 10 ML VIAL IVP PRN (16:11)
[2018-11-11] MEDS: HEPARIN (PORCINE) 1000 UNIT/ML (DIALYSIS) IVP PRN ×2 (14:03)
[2018-11-11] MEDS: PARICALCITOL 2 MCG/ML VIAL IVP PRN (14:30)
[2018-11-11] MEDS: DARBEPOETIN ESRD 25 MCG/ML IVP PRN (14:30)
[2018-11-14] MEDS: HEPARIN (PORCINE) 1000 UNIT/ML (DIALYSIS) IVP PRN ×2 (13:01)
[2018-11-14] MEDS: PARICALCITOL 2 MCG/ML VIAL IVP PRN (14:06)
[2018-11-14] MEDS: LOPERAMIDE HCL 2 MG CAP PO PRN (14:06)
[2018-11-16] MEDS: HEPARIN (PORCINE) 1000 UNIT/ML (DIALYSIS) IVP PRN ×2 (14:03)
[2018-11-16] MEDS: PARICALCITOL 2 MCG/ML VIAL IVP PRN (15:51)
[2018-11-16] MEDS: SODIUM FERRIC GLUC 62.5 MG/5ML IVP PRN (15:51)
[2018-11-18] MEDS: HEPARIN (PORCINE) 1000 UNIT/ML (DIALYSIS) IVP PRN ×2 (14:15)
[2018-11-18] MEDS: DARBEPOETIN ESRD 25 MCG/ML IVP PRN (14:53)
[2018-11-18] MEDS: PARICALCITOL 2 MCG/ML VIAL IVP PRN (14:53)
[2018-11-21] MEDS: HEPARIN (PORCINE) 1000 UNIT/ML (DIALYSIS) IVP PRN ×2 (13:52)
[2018-11-21] MEDS: PARICALCITOL 2 MCG/ML VIAL IVP PRN (17:09)
[2018-11-23] MEDS: HEPARIN (PORCINE) 1000 UNIT/ML (DIALYSIS) IVP PRN ×2 (13:48)
[2018-11-23] MEDS: PARICALCITOL 2 MCG/ML VIAL IVP PRN (14:05)
[2018-11-23] MEDS: SODIUM FERRIC GLUC 62.5 MG/5ML IVP PRN (14:05)
[2018-11-25] MEDS: HEPARIN (PORCINE) 1000 UNIT/ML (DIALYSIS) IVP PRN ×2 (14:05)
[2018-11-25] MEDS: PARICALCITOL 2 MCG/ML VIAL IVP PRN (14:38)
[2018-11-28] MEDS: HEPARIN (PORCINE) 1000 UNIT/ML (DIALYSIS) IVP PRN ×2 (10:13)
[2018-11-28] MEDS: PARICALCITOL 2 MCG/ML VIAL IVP PRN (15:12)
[2018-11-30] MEDS: HEPARIN (PORCINE) 1000 UNIT/ML (DIALYSIS) IVP PRN ×2 (10:36)
[2018-11-30] MEDS: SODIUM FERRIC GLUC 62.5 MG/5ML IVP PRN (11:26)
[2018-11-30] MEDS: PARICALCITOL 2 MCG/ML VIAL IVP PRN (11:26)
[2018-12-02] MEDS: HEPARIN (PORCINE) 1000 UNIT/ML (DIALYSIS) IVP PRN ×2 (10:16)
[2018-12-02] MEDS: PARICALCITOL 2 MCG/ML VIAL IVP PRN (10:25)
[2018-12-02] MEDS: DARBEPOETIN ESRD 25 MCG/ML IVP PRN (10:25)
[2018-12-05] MEDS: HEPARIN (PORCINE) 1000 UNIT/ML (DIALYSIS) IVP PRN ×2 (14:00)
[2018-12-05] MEDS: PARICALCITOL 2 MCG/ML VIAL IVP PRN (14:46)
[2018-12-05] MEDS: ALTEPLASE RECOMB 2 MG VIAL IVP PRN (17:54)
[2018-12-05] MEDS: WATER STERILE 10 ML VIAL IVP PRN (17:54)
[2018-12-07] MEDS: HEPARIN (PORCINE) 1000 UNIT/ML (DIALYSIS) IVP PRN ×2 (12:49→12:50)
[2018-12-07] MEDS: PARICALCITOL 2 MCG/ML VIAL IVP PRN (13:07)
[2018-12-07] MEDS: SODIUM FERRIC GLUC 62.5 MG/5ML IVP PRN (13:07)
[2018-12-07 13:19] LABS: PLATELET COUNT, AUTOMATED 283 K/uL (150-450)
[2018-12-09] MEDS: HEPARIN (PORCINE) 1000 UNIT/ML (DIALYSIS) IVP PRN ×2 (14:03)
[2018-12-09] MEDS: PARICALCITOL 2 MCG/ML VIAL IVP PRN (14:29)
[2018-12-12] MEDS: HEPARIN (PORCINE) 1000 UNIT/ML (DIALYSIS) IVP PRN ×2 (13:03)
[2018-12-12] MEDS: PARICALCITOL 2 MCG/ML VIAL IVP PRN (13:44)
[2018-12-14] MEDS: HEPARIN (PORCINE) 1000 UNIT/ML (DIALYSIS) IVP PRN ×2 (14:03)
[2018-12-14] MEDS: SODIUM FERRIC GLUC 62.5 MG/5ML IVP PRN (14:39)
[2018-12-16] MEDS: HEPARIN (PORCINE) 1000 UNIT/ML (DIALYSIS) IVP PRN ×2 (14:03)
[2018-12-16] MEDS: DARBEPOETIN ESRD 25 MCG/ML IVP PRN (14:17)
[2018-12-16] MEDS: PARICALCITOL 2 MCG/ML VIAL IVP PRN (14:17)
[2018-12-19] MEDS: HEPARIN (PORCINE) 1000 UNIT/ML (DIALYSIS) IVP PRN ×2 (14:01→14:02)
[2018-12-19] MEDS: PARICALCITOL 2 MCG/ML VIAL IVP PRN (14:13)
[2018-12-21] MEDS: HEPARIN (PORCINE) 1000 UNIT/ML (DIALYSIS) IVP PRN ×2 (14:01)
[2018-12-21] MEDS: PARICALCITOL 2 MCG/ML VIAL IVP PRN (14:16)
[2018-12-21] MEDS: SODIUM FERRIC GLUC 62.5 MG/5ML IVP PRN (14:16)
[2018-12-23] MEDS: HEPARIN (PORCINE) 1000 UNIT/ML (DIALYSIS) IVP PRN ×2 (11:44)
[2018-12-23] MEDS: PARICALCITOL 2 MCG/ML VIAL IVP PRN (13:50)
[2018-12-26] MEDS: HEPARIN (PORCINE) 1000 UNIT/ML (DIALYSIS) IVP PRN ×2 (14:04)
[2018-12-26] MEDS: PARICALCITOL 2 MCG/ML VIAL IVP PRN (14:21)
[2018-12-28] MEDS: HEPARIN (PORCINE) 1000 UNIT/ML (DIALYSIS) IVP PRN ×2 (13:58)
[2018-12-28 14:20] LABS: PLATELET COUNT, AUTOMATED 226 K/uL (150-450)
[2018-12-28] MEDS: PARICALCITOL 2 MCG/ML VIAL IVP PRN (14:34)
[2018-12-28] MEDS: SODIUM FERRIC GLUC 62.5 MG/5ML IVP PRN (14:34)
[2018-12-30] MEDS: HEPARIN (PORCINE) 1000 UNIT/ML (DIALYSIS) IVP PRN ×2 (14:04)
[2018-12-30] MEDS: DARBEPOETIN ESRD 25 MCG/ML IVP PRN (16:08)
[2018-12-30] MEDS: PARICALCITOL 2 MCG/ML VIAL IVP PRN (16:08)
[2019-01-02] MEDS: HEPARIN (PORCINE) 1000 UNIT/ML (DIALYSIS) IVP PRN ×2 (14:03)
[2019-01-02] MEDS: PARICALCITOL 2 MCG/ML VIAL IVP PRN (14:16)
[2019-01-04] MEDS: HEPARIN (PORCINE) 1000 UNIT/ML (DIALYSIS) IVP PRN ×2 (14:00)
[2019-01-04] MEDS: SODIUM FERRIC GLUC 62.5 MG/5ML IVP PRN (14:23)
[2019-01-04] MEDS: PARICALCITOL 2 MCG/ML VIAL IVP PRN (14:23)
[2019-01-06] MEDS: HEPARIN (PORCINE) 1000 UNIT/ML (DIALYSIS) IVP PRN ×2 (13:00)
[2019-01-06] MEDS: PARICALCITOL 2 MCG/ML VIAL IVP PRN (13:15)
[2019-01-09] MEDS: HEPARIN (PORCINE) 1000 UNIT/ML (DIALYSIS) IVP PRN ×2 (14:01)
[2019-01-09] MEDS: PARICALCITOL 2 MCG/ML VIAL IVP PRN (14:20)
[2019-01-11] MEDS: HEPARIN (PORCINE) 1000 UNIT/ML (DIALYSIS) IVP PRN ×2 (13:57)
[2019-01-11] MEDS: SODIUM FERRIC GLUC 62.5 MG/5ML IVP PRN (14:37)
[2019-01-11] MEDS: PARICALCITOL 2 MCG/ML VIAL IVP PRN (14:37)
[2019-01-13] MEDS: HEPARIN (PORCINE) 1000 UNIT/ML (DIALYSIS) IVP PRN ×2 (14:07)
[2019-01-13] MEDS: DARBEPOETIN ESRD 25 MCG/ML IVP PRN (14:51)
[2019-01-13] MEDS: PARICALCITOL 2 MCG/ML VIAL IVP PRN (14:51)
[2019-01-16] MEDS: HEPARIN (PORCINE) 1000 UNIT/ML (DIALYSIS) IVP PRN ×2 (14:05)
[2019-01-16] MEDS: PARICALCITOL 2 MCG/ML VIAL IVP PRN (14:22)
[2019-01-18] MEDS: HEPARIN (PORCINE) 1000 UNIT/ML (DIALYSIS) IVP PRN ×2 (14:01)
[2019-01-18] MEDS: PARICALCITOL 2 MCG/ML VIAL IVP PRN (14:15)
[2019-01-18] MEDS: SODIUM FERRIC GLUC 62.5 MG/5ML IVP PRN (14:15)
[2019-01-20] MEDS: HEPARIN (PORCINE) 1000 UNIT/ML (DIALYSIS) IVP PRN ×2 (11:45)
[2019-01-20] MEDS: PARICALCITOL 2 MCG/ML VIAL IVP PRN (11:53)
[2019-01-23] MEDS: HEPARIN (PORCINE) 1000 UNIT/ML (DIALYSIS) IVP PRN ×2 (12:02→12:03)
[2019-01-23] MEDS: PARICALCITOL 2 MCG/ML VIAL IVP PRN (12:33)
[2019-01-25] MEDS: HEPARIN (PORCINE) 1000 UNIT/ML (DIALYSIS) IVP PRN ×2 (13:59→14:00)
[2019-01-25] MEDS: SODIUM FERRIC GLUC 62.5 MG/5ML IVP PRN (14:26)
[2019-01-25] MEDS: PARICALCITOL 2 MCG/ML VIAL IVP PRN (14:26)
[2019-01-27] MEDS: HEPARIN (PORCINE) 1000 UNIT/ML (DIALYSIS) IVP PRN ×2 (14:00)
[2019-01-27] MEDS: PARICALCITOL 2 MCG/ML VIAL IVP PRN (14:09)
[2019-01-27] MEDS: DARBEPOETIN ESRD 25 MCG/ML IVP PRN (14:09)
[2019-01-30] MEDS: HEPARIN (PORCINE) 1000 UNIT/ML (DIALYSIS) IVP PRN ×2 (14:06)
[2019-01-30] MEDS: PARICALCITOL 2 MCG/ML VIAL IVP PRN (14:36)
[2019-02-01] MEDS: HEPARIN (PORCINE) 1000 UNIT/ML (DIALYSIS) IVP PRN ×2 (13:59)
[2019-02-01] MEDS: SODIUM FERRIC GLUC 62.5 MG/5ML IVP PRN (14:08)
[2019-02-01] MEDS: PARICALCITOL 2 MCG/ML VIAL IVP PRN (14:08)
[2019-02-03] MEDS: HEPARIN (PORCINE) 1000 UNIT/ML (DIALYSIS) IVP PRN ×2 (12:33)
[2019-02-03] MEDS: DARBEPOETIN ESRD 25 MCG/ML IVP PRN (12:48)
[2019-02-03] MEDS: PARICALCITOL 2 MCG/ML VIAL IVP PRN (12:49)
[2019-02-06] MEDS: HEPARIN (PORCINE) 1000 UNIT/ML (DIALYSIS) IVP PRN ×2 (09:43)
[2019-02-06] MEDS: PARICALCITOL 2 MCG/ML VIAL IVP PRN (11:37)
[2019-02-08] MEDS: HEPARIN (PORCINE) 1000 UNIT/ML (DIALYSIS) IVP PRN ×2 (10:26→10:27)
[2019-02-08] MEDS: PARICALCITOL 2 MCG/ML VIAL IVP PRN (11:03)
[2019-02-08] MEDS: SODIUM FERRIC GLUC 62.5 MG/5ML IVP PRN (11:03)
[2019-02-10] MEDS: HEPARIN (PORCINE) 1000 UNIT/ML (DIALYSIS) IVP PRN ×2 (14:00)
[2019-02-10] MEDS: DARBEPOETIN ESRD 25 MCG/ML IVP PRN (14:21)
[2019-02-10] MEDS: PARICALCITOL 2 MCG/ML VIAL IVP PRN (14:21)
[2019-02-10] MEDS: LOPERAMIDE HCL 2 MG CAP PO PRN (19:13)
[2019-02-13] MEDS: HEPARIN (PORCINE) 1000 UNIT/ML (DIALYSIS) IVP PRN ×2 (12:52)
[2019-02-13] MEDS: PARICALCITOL 2 MCG/ML VIAL IVP PRN (13:24)
[2019-02-15] MEDS: HEPARIN (PORCINE) 1000 UNIT/ML (DIALYSIS) IVP PRN ×2 (14:03)
[2019-02-15] MEDS: PARICALCITOL 2 MCG/ML VIAL IVP PRN (14:29)
[2019-02-15] MEDS: SODIUM FERRIC GLUC 62.5 MG/5ML IVP PRN (14:29)
[2019-02-15 14:42] LABS: PLATELET COUNT, AUTOMATED 225 K/uL (150-450)
[2019-02-17] MEDS: HEPARIN (PORCINE) 1000 UNIT/ML (DIALYSIS) IVP PRN ×2 (14:02)
[2019-02-17] MEDS: DARBEPOETIN ESRD 25 MCG/ML IVP PRN (14:21)
[2019-02-17] MEDS: PARICALCITOL 2 MCG/ML VIAL IVP PRN (14:21)
[2019-02-20] MEDS: HEPARIN (PORCINE) 1000 UNIT/ML (DIALYSIS) IVP PRN ×2 (14:04→14:05)
[2019-02-20] MEDS: PARICALCITOL 2 MCG/ML VIAL IVP PRN (15:06)
[2019-02-22] MEDS: HEPARIN (PORCINE) 1000 UNIT/ML (DIALYSIS) IVP PRN ×2 (11:55)
[2019-02-22] MEDS: SODIUM FERRIC GLUC 62.5 MG/5ML IVP PRN (12:15)
[2019-02-22] MEDS: PARICALCITOL 2 MCG/ML VIAL IVP PRN (12:15)
[2019-02-24] MEDS: HEPARIN (PORCINE) 1000 UNIT/ML (DIALYSIS) IVP PRN ×2 (14:07→14:08)
[2019-02-24] MEDS: PARICALCITOL 2 MCG/ML VIAL IVP PRN (14:28)
[2019-02-24] MEDS: DARBEPOETIN ESRD 25 MCG/ML IVP PRN (14:28)
[2019-02-27] MEDS: HEPARIN (PORCINE) 1000 UNIT/ML (DIALYSIS) IVP PRN ×2 (14:24)
[2019-02-27] MEDS: PARICALCITOL 2 MCG/ML VIAL IVP PRN (14:42)
[2019-03-01] MEDS: HEPARIN (PORCINE) 1000 UNIT/ML (DIALYSIS) IVP PRN ×2 (12:22)
[2019-03-01] MEDS: PARICALCITOL 2 MCG/ML VIAL IVP PRN (14:25)
[2019-03-01] MEDS: SODIUM FERRIC GLUC 62.5 MG/5ML IVP PRN (14:26)
[2019-03-03] MEDS: HEPARIN (PORCINE) 1000 UNIT/ML (DIALYSIS) IVP PRN ×2 (14:03→14:04)
[2019-03-03] MEDS: DARBEPOETIN ESRD 25 MCG/ML IVP PRN (15:46)
[2019-03-03] MEDS: PARICALCITOL 2 MCG/ML VIAL IVP PRN (15:47)
[2019-03-06] MEDS: HEPARIN (PORCINE) 1000 UNIT/ML (DIALYSIS) IVP PRN ×2 (14:03)
[2019-03-06] MEDS: LOPERAMIDE HCL 2 MG CAP PO PRN (14:08)
[2019-03-06] MEDS: PARICALCITOL 2 MCG/ML VIAL IVP PRN (14:20)
[2019-03-08] MEDS: HEPARIN (PORCINE) 1000 UNIT/ML (DIALYSIS) IVP PRN ×2 (11:34)
[2019-03-08] MEDS: PARICALCITOL 2 MCG/ML VIAL IVP PRN (12:01)
[2019-03-08] MEDS: SODIUM FERRIC GLUC 62.5 MG/5ML IVP PRN (12:01)
[2019-03-08 12:33] LABS: PLATELET COUNT, AUTOMATED 241 K/uL (150-450)
[2019-03-10] MEDS: HEPARIN (PORCINE) 1000 UNIT/ML (DIALYSIS) IVP PRN ×2 (14:03→14:04)
[2019-03-10] MEDS: PARICALCITOL 2 MCG/ML VIAL IVP PRN (14:45)
[2019-03-13] MEDS: HEPARIN (PORCINE) 1000 UNIT/ML (DIALYSIS) IVP PRN ×2 (13:57)
[2019-03-13] MEDS: PARICALCITOL 2 MCG/ML VIAL IVP PRN (14:21)
[2019-03-15] MEDS: HEPARIN (PORCINE) 1000 UNIT/ML (DIALYSIS) IVP PRN ×2 (13:59→14:00)
[2019-03-15] MEDS: SODIUM FERRIC GLUC 62.5 MG/5ML IVP PRN (14:19)
[2019-03-15] MEDS: PARICALCITOL 2 MCG/ML VIAL IVP PRN (14:20)
[2019-03-15] MEDS ORDERED: CEPH500C24 PO (14:23)
[2019-03-17] MEDS ORDERED: DARBEPOETIN ESRD 25 MCG/ML IVP PRN
[2019-03-17] MEDS: HEPARIN (PORCINE) 1000 UNIT/ML (DIALYSIS) IVP PRN ×2 (14:00)
[2019-03-17] MEDS: PARICALCITOL 2 MCG/ML VIAL IVP PRN (14:43)
== END 2019-03-25 ==
LOC: DIAL 10:15
PROVIDERS: ATTEND Internal Medicine Nephrology
DX: N17.9 Acute kidney failure, unspecified (principal); N18.6 End stage renal disease; I12.0 Hypertensive chronic kidney disease with stage 5 chronic kidney disease or end stage renal disease; Z79.4 Long term (current) use of insulin; E11.65 Type 2 diabetes mellitus with hyperglycemia; E03.9 Hypothyroidism, unspecified; I25.10 Atherosclerotic heart disease of native coronary artery without angina pectoris; Z79.82 Long term (current) use of aspirin; K50.90 Crohn's disease, unspecified, without complications; D72.829 Elevated white blood cell count, unspecified; D63.1 Anemia in chronic kidney disease; Z87.891 Personal history of nicotine dependence; E11.22 Type 2 diabetes mellitus with diabetic chronic kidney disease; Z99.2 Dependence on renal dialysis
CPT/HCPCS: 36416; 80170; 80202; 82040; 82108; 82247; 82310; 82374; 82465; 82565; 82728; 82947; 82948; 83036; 83540; 83550; 83970; 84075; 84100; 84132; 84295; 84443; 84460; 84478; 84520; 85018; 85025; 86580; 86706; 87040; 87070; 87340; 90747; 90999; A4216; A4657; A9270; G0010; G0472; J0882; J1580; J2501; J2916; J2997; J3370; J7050; 86803; 90471

== ENCOUNTER → 2018-08-05 | Outpatient (REF) | payer MEDICARE, BC ==
[2017-02-18 08:45] VITALS: BMI 24.5
[~2018-08-05] MED LIST changes: +CALC-488 PO; -CALC-743 PO; -DARBEPOETIN ESRD 25 MCG/ML IVP PRN; -DIALYSIS ACETAMINOPHEN 325 MG PO PRN; -LIDOCAINE/SOD BICARB 8.4% SYR SC PRN; -NS 0.9% IVPB PRN; +PENT400T57 PO; -PENT400T83 PO; -PROMETHAZINE HCL 25 MG TAB PO PRN; -VANCOMYCIN IVPB PRN; -diphenhydr DIALYSIS 50 MG/ML IVP PRN
== END ==
LOC: ZZSENDIN 11:52
DX: N30.01 Acute cystitis with hematuria (principal)
CPT/HCPCS: 81001; 87088

== ENCOUNTER 2018-08-25 08:28 | Outpatient (RCR) | payer MEDICARE, BC ==
[2017-02-18 08:45] VITALS: Wt 73.3 kg
[2018-08-25 08:38] VITALS: BP 132/55
--- NOTE | 2018-08-25 10:31 | [facility] ONCOLOGY NOTE ---
EVENT DATE: August 25, 2018 DIAGNOSES 1. Normochromic, normocytic anemia. 2. Pernicious anemia with vitamin B12 deficiency. 3. Anemia of chronic renal disease. 4. Essential thrombocythemia. 5. History of Crohn disease. 6. History of cerebrovascular accident and transient ischemic attack. 7. History of duodenal ulcer. 8. Diabetes mellitus. 9. Hypertension. 10. Hyperlipidemia. CHIEF COMPLAINT The patient is here today for followup of his essential thrombocythemia and anemia. HEMATOLOGY HISTORY The patient is a 72-year-old male with past medical history of essential thrombocythemia, maintained on anagrelide for years. The patient recently received three units of packed RBCs and two injections of intravenous iron supplement for his anemia. The patient also has daily epistaxis which, as per patient, is severe. His CBC on April 17, 2015 showed white count of 15.2, hemoglobin 7.5, hematocrit 23.2 and MCV was 84.5, platelet count 350,000. Serum iron was 36, TIBC 299, iron saturation 12%. He had a creatinine level of over 3. The patient was referred for further evaluation and management of his anemia. Workup for the anemia showed hemoglobin of 7.8, WBC of 16, hematocrit 24.3, MCV 84.4, platelets 398,000. Absolute retic was 0.0354. Erythropoietin level was 7, within the normal range. Serum ferritin was 451, within the normal range, serum iron 38, TIBC 299, iron saturation 12.7. Red cell folate was 736. Vitamin B12 was 669, folate more than 24. Methylmalonic acid was 1.96, which is high. Serum protein electrophoresis with immunofixation came back with normal pattern. HISTORY OF PRESENT ILLNESS The patient is here today for followup of his anemia and essential thrombocythemia. He is complaining of occasional epistaxis. He has some cough and shortness of breath. He has alternating diarrhea and constipation. He has pain in his knees, shoulders and elbows. He has numbness in his hands sometimes. He bruises easily. He is weak, tired and fatigued. PAST MEDICAL HISTORY 1. Essential thrombocytosis diagnosed in 1990. 2. Crohn disease diagnosed in 2001. 3. High PSA with negative biopsies in 2003. 4. TIA in 2002. 5. CVA with multiple infarcts on MRI in 2001. 6. Anemia since 2000. 7. Duodenal ulcer in 1989. 8. Diabetes mellitus in 1969. 9. Hyperlipidemia. 10. Hypertension. PAST SURGICAL HISTORY 1. 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 2. Left knee ACL repair in 1976. FAMILY HISTORY Negative for cancer or blood diseases, except one paternal aunt with ovarian cancer. Another paternal aunt of some sort of cancer, but does not know the type. SOCIAL HISTORY The patient is with two children. He is retired as the manager group of an office. He quit smoking in 1969 after six to seven years at one pack a day. Since he quit smoking in 1969, he started to chew tobacco, and he chewed about one to two cans per week. He has smoked a pipe also in the past. CURRENT MEDICATIONS 1. Dulera 100/5 mcg inhalant twice daily. 2. Zyrtec 10 mg once daily. 3. Diltiazem HCL ER 120 mg daily. 4. Pentoxifylline 400 mg twice daily. 5. Clopidogrel bisulfate 75 mg daily. 6. Diovan 160 mg twice daily. 7. Chlorpropamide 250 mg twice daily. 8. Levothyroxine 25 mcg daily. 9. Liothyronine sodium 25 mcg one tablet daily. 10. Pravastatin 20 mg daily. 11. Dicyclomine hydrochloride 20 mg four times daily. 12. Anagrelide 0.5 mg one tablet four times daily. 13. ProAir HFA 108 (90 mcg) two puffs every six hours. ALLERGIES No known drug allergies. REVIEW OF SYSTEMS CONSTITUTIONAL: No appetite or weight change. No fever, chills or sweating. No recent infection. HEENT: Ears: No tinnitus or hearing problem. Nose: He has occasional epistaxis. Throat: No sore throat or mouth ulcers. Eyes: No diplopia or visual changes. RESPIRATORY: He has cough with shortness of breath. CARDIOVASCULAR: No chest pain, orthopnea, or paroxysmal nocturnal dyspnea (PND). No edema. No palpitations. GASTROINTESTINAL: He has alternating diarrhea and constipation. GENITOURINARY: No hematuria or dysuria. MUSCULOSKELETAL: He has pain in the knees, shoulders and elbows. NEUROLOGICAL: He has numbness in his hands. HEMATOLOGIC/LYMPHATIC: He bruises easily. He is weak, tired and fatigued. SKIN: No skin rash or lumps. PSYCHIATRIC: No anxiety or depression. PHYSICAL EXAMINATION GENERAL: Looks stable. Well-developed, well-nourished, and in no acute distress. VITAL SIGNS: Blood pressure 152/55, pulse 71 per minute, respirations 16 per minute, temperature 97.6, pulse oximetry 97% on room air. HEENT: Head: Atraumatic. No sinus tenderness to palpation. Eyes: No icterus or conjunctivitis. Mouth and throat: No oral thrush or mucositis. NECK: Supple. No cervical or supraclavicular lymphadenopathy. LUNGS: Clear to auscultation and percussion bilaterally. HEART: Regular rate and rhythm. No gallops, murmurs, clicks or rubs. ABDOMEN: Soft and lax. No tenderness. No hepatosplenomegaly. No masses. EXTREMITIES: AV fistula on the right arm is noted. LYMPHATICS: No peripheral lymphadenopathy. NEUROLOGICAL: Conscious, alert and oriented x3. No focal motor or sensory deficits. PSYCHIATRIC: Mood and affect appear normal. SKIN: No skin rash, bruise or purpuric eruption. DIAGNOSTIC/LABORATORY STUDIES CBC showed white count 23.5, hemoglobin 11.9, hematocrit 37.7, platelets 319,000. ANC 20.2. Creatinine 6.6. ASSESSMENT 1. Anemia of end-stage renal disease and vitamin B12 deficiency. Patient had initially methylmalonic acid assay high at 1.96, which dropped to 0.39 after B12 supplement. His hemoglobin currently is 11.9 g/dL, which is stable. Patient currently on hemodialysis and he is receiving Aranesp with that. He is also receiving vitamin B12 shots every month. 2. 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 He is currently on monthly B12 shots 1000 mcg deep subcutaneously. I will continue the same. 3. Essential thrombocythemia, on anagrelide 0.5 mg twice daily. current platelet count 319,000, which is stable and normal. We will continue to follow. 4. End-stage renal disease, on hemodialysis. PLAN 1. Vitamin B12 shot 1000 mcg deep subcutaneously every month. 2. Anagrelide 0.5 mg twice daily. 3. Aranesp as per Hemodialysis Unit. 4. Patient to return in six months with CBC. 6. The patient to contact us for any new concern or complaints. [facility]ITAL[facility]attie
[2018-08-26] MEDS ORDERED: CYANOCOBALAMIN 1000MCG/ML VIAL IM ONLY PRN (12:00)
== END 2018-09-21 07:12 | disposition home or self-care (01) ==
LOC: ONC 08:28
PROVIDERS: ATTEND Internal Medicine Hematology
DX: D47.3 Essential (hemorrhagic) thrombocythemia (principal); D64.9 Anemia, unspecified; D63.1 Anemia in chronic kidney disease; D51.0 Vitamin B12 deficiency anemia due to intrinsic factor deficiency; N18.6 End stage renal disease; Z86.73 Personal history of transient ischemic attack (TIA), and cerebral infarction without residual deficits; E11.9 Type 2 diabetes mellitus without complications; E78.5 Hyperlipidemia, unspecified; R04.0 Epistaxis; R53.83 Other fatigue; R53.1 Weakness; K50.90 Crohn's disease, unspecified, without complications; Z99.2 Dependence on renal dialysis; I12.0 Hypertensive chronic kidney disease with stage 5 chronic kidney disease or end stage renal disease
CPT/HCPCS: 96372; G0463; J3420; 99212

== ENCOUNTER 2018-09-05 08:06 | Emergency (ER) | payer MEDICARE, BC ==
[2017-02-18 08:45] VITALS: Wt 70.8 kg
--- NOTE | 2018-09-05 08:34 | ER Report ---
History and Physical Time Seen By MD: 08:33 Hx. of Stated Complaint: short of breathe HPI/ROS CHIEF COMPLAINT: Shortness of breath HISTORY OF PRESENT ILLNESS: Patient is a 72-year-old male who is on dialysis for end-stage renal disease Wednesday. He is been complaining of exertional dyspnea without chest pain. Specifically worse over the last 24 hours but he feels the symptoms have been going on for a few weeks. Patient admits to exertional dyspnea. Admits to cough without production. He noticed decrease in activity level secondary to dyspnea. Patient has a history of end-stage renal disease on dialysis Wednesday. Patient scheduled for dialysis today. REVIEW OF SYSTEMS: Constitutional: Subjective fevers Eyes: No discharge. ENT: No sore throat. Cardiovascular: No chest pain, no palpitations. Respiratory: Nonproductive cough, dyspnea Gastrointestinal: No abdominal pain, no vomiting. Genitourinary: No hematuria. Musculoskeletal: No back pain. Skin: No rashes. Neurological: No headache. Allergies: Coded Allergies: No Known Drug Allergies (Unverified , 09/05/18) Home Meds Active Scripts [B12] No Conflict Check, 1000 MCG IM Monthly, #22 MCG 1 Refill Inject 1000mcg monthly Prov:SATHISH HENRY CHILD CARE SUPERVISOR-BC, ONC 04/06/16 Reported Medications Hydralazine Hcl (HYDRALAZINE HCL) 50 Mg Tablet, 50 MG PO QDAY, TAB 07/08/18 Clopidogrel Bisulfate (PLAVIX) 75 Mg Tablet, 1 TAB PO QDAY, TAB 03/04/18 Vitamin B Cmplx/Vit C/Folic Ac (TRIPHROCAPS SOFTGEL) 1 Each Cap, 1 EACH PO D AILY, CAP 02/21/18 Calcium Carbonate (CALCIUM CARBONATE) 500 Mg Tablet, 500 MG PO TIDCF 02/21/18 Diltiazem Hcl (CARTIA XT) 240 Mg Cap.er.24h, 240 MG PO QPM 02/21/18 Loperamide Hcl (LOPERAMIDE) 2 Mg Tablet, 2 MG PO PRN PRN for DIARRHEA 02/21/18 Insulin Glargine (LANTUS) 100 Unit/Ml Soln, 4 UNIT SUBQ QDAY, ML 4 units with dinner 02/18/18 Mesalamine (PENTASA) 250 Mg Capcr, 1000 MG PO BID 01/17/18 Insulin Glargine (LANTUS) 100 Unit/Ml Soln, 25 UNIT SUBQ QAM, ML 08/08/17 Furosemide (LASIX) 40 Mg Tablet, 80 MG PO non dialysis days, TAB take 40mg by mouth on non dialysis days (T, Sonali, Sat, and Sun) 10/15/15 Vit A,C & E/Lutein/Minerals (OCUVITE TABLET) 1 Each Tablet, 1 EACH PO DAILY 06/22/15 Pentoxifylline (PENTOXIFYLLINE) 400 Mg Tabsr, 400 MG PO BID 03/13/15 Dicyclomine Hcl (DICYCLOMINE HCL) 20 Mg Tablet, 20 MG PO QID 01/23/15 Levothyroxine Sodium (LEVOTHYROXINE SODIUM) 25 Mcg Tablet, 25 MCG PO QDAY 07/09/13 Pravastatin Sodium (PRAVASTATIN SODIUM) 20 Mg Tablet, 10 MG PO QDAY 07/09/13 Aspirin (Adult Aspirin) 81 Mg Tab.chew, 81 MG PO DAILY 03/22/07 Anagrelide Hcl (Agrylin) 0.5 Mg Capsule, 0.5 MG PO DAILY 03/22/07 Past Medical/Surgical History Past medical history for insulin-dependent diabetes, history of end-stage renal disease on hemodialysis history of hypertension Hx Smoking: No (CHEWS 1 CAN Q 3 DAYS FOR 40 YEARS. SMOKED AGE 18 TO 23) Smoking Status: Former Smoker Exposure to Second Hand Smoke?: No Hx Substance Use Disorder: No Hx Alcohol Use: Yes Constitutional Vital Sign - Last 24 Hours 09/05/18 09/05/18 09/05/18 09/05/18 08:06 08:13 08:18 08:30 Temp 98.5 Pulse 96 97 Resp 16 B/P (MAP) 135/57 (83) 135/57 129/62 (84) Pulse Ox 90 O2 Delivery Room Air 09/05/18 09/05/18 09/05/18 09/05/18 08:36 09:04 09:06 09:11 Pulse 98 95 98 Resp 19 12 20 B/P (MAP) 130/61 (84) Pulse Ox 88 87 83 O2 Delivery Room Air Room Air Room Air 09/05/18 09/05/18 09/05/18 09/05/18 09:30 10:11 10:17 10:30 Pulse 78 B/P (MAP) 125/50 (75) 127/57 (80) 126/53 (77) Pulse Ox 100 O2 Delivery Nasal Cannula O2 Flow Rate 2 09/05/18 09/05/18 09/05/18 09/05/18 10:41 10:46 11:16 11:37 Pulse 88 87 96 Resp 15 8 18 B/P (MAP) 125/58 (80) Pulse Ox 95 95 89 O2 Delivery Nasal Cannula Nasal Cannula Nasal Cannula O2 Flow Rate 2 2 2 09/05/18 09/05/18 09/05/18 09/05/18 11:42 12:12 12:42 12:45 Pulse 94 93 88 Resp 18 15 8 B/P (MAP) 113/49 (70) Pulse Ox 93 93 94 O2 Delivery Nasal Cannula Nasal Cannula Nasal Cannula O2 Flow Rate 2 2 2 09/05/18 09/05/18 09/05/18 09/05/18 13:00 13:05 13:35 14:00 Pulse 89 77 Resp 26 14 B/P (MAP) 107/66 (80) 127/57 (80) Pulse Ox 95 97 O2 Delivery Nasal Cannula Nasal Cannula O2 Flow Rate 2 2 09/05/18 09/05/18 09/05/18 14:05 14:10 14:40 Pulse 81 79 79 Resp 24 23 24 Pulse Ox 94 94 93 O2 Delivery Nasal Cannula Nasal Cannula Nasal Cannula O2 Flow Rate 2 2 2 Intake and Output 09/05/18 09/05/18 09/06/18 15:00 23:00 07:00 Intake Total 800 ml Balance 800 ml Physical Exam General Appearance: The patient is alert, has no immediate need for airway protection and no signs of toxicity. [ ] Eyes: Pupils equal and round no pallor or injection. ENT, Mouth: Mucous membranes are moist. Respiratory: There are no retractions, lungs are clear to auscultation. Cardiovascular: Regular rate and rhythm. [ ] Gastrointestinal: Abdomen is soft and non tender, no masses, bowel sounds normal. Neurological: Awake and alert Skin: Warm and dry, no rashes. Musculoskeletal: Neck is supple non tender. Extremities are nontender, nonswollen and have full range of motion. [ ] DIFFERENTIAL DIAGNOSIS: After history and physical exam differential diagnosis was considered for [ ] Medical Decision Making Data Points Result Diagram: 09/05/1881609/05/18816 Laboratory Hematology Test 09/05/18 08:17 09/05/18 09:00 09/05/18 11:01 Red Blood Count 4.14 M/uL (4.00-5.60) Mean Corpuscular Volume 92.8 fL (80.0-96.0) Mean Corpuscular Hemoglobin 29.7 pg (26.0-33.0) Mean Corpuscular Hemoglobin Concent 32.0 g/dL (32.0-36.0) Red Cell Distribution Width 18.2 % (11.5-14.5) Mean Platelet Volume 9.7 fL (7.2-11.1) Neutrophils (%) (Auto) % (39.4-72.5) Lymphocytes (%) (Auto) % (17.6-49.6) Monocytes (%) (Auto) % (4.1-12.4) Eosinophils (%) (Auto) % (0.4-6.7) Basophils (%) (Auto) % (0.3-1.4) Nucleated RBC Relative Count (auto) /100WBC Neutrophils # (Auto) K/uL (2.0-7.4) Lymphocytes # (Auto) K/uL (1.3-3.6) Monocytes # (Auto) K/uL (0.3-1.0) Eosinophils # (Auto) K/uL (0.0-0.5) Basophils # (Auto) K/uL (0.0-0.1) Nucleated RBC Absolute Count (auto) K/uL Neutrophils % (Manual) 82 % (39.4-72.5) Band Neutrophils % 10 % Lymphocytes % (Manual) 4 % (17.6-49.6) Monocytes % (Manual) 3 % (4.1-12.4) Eosinophils % (Manual) 1 % (0.4-6.7) Basophils % (Manual) 0 % (0.3-1.4) Platelet Estimate Normal Anisocytosis 1+ Peripheral Blood Smear Yes Y/N D-Dimer Quantitative (PE/DVT) 11.36 ug/ml (0-0.50) Sodium Level 138 mmol/L (137-145) Potassium Level 3.8 mmol/L (3.5-5.0) Chloride Level 103 mmol/L (98-107) Carbon Dioxide Level 23 mmol/L (22-30) Blood Urea Nitrogen 54 mg/dl (9-21) Creatinine 6.80 mg/dl (0.66-1.25) Glomerular Filtration Rate Calc 8.0 Random Glucose 98 mg/dl (75-110) Calcium Level 11.7 mg/dl (8.4-10.2) Total Bilirubin 0.4 mg/dl (0.2-1.3) Aspartate Amino Transf (AST/SGOT) 40 U/L (0-35) Alanine Aminotransferase (ALT/SGPT) 27 U/L (0-56) Alkaline Phosphatase 340 U/L (0-126) Total Protein 7.3 g/dl (6.3-8.2) Albumin 4.6 g/dl (3.5-5.0) Influenza Virus Type A (PCR) Negative (NEGATIVE) Influenza Virus Type B (PCR) Negative (NEGATIVE) Lactate 2.2 mmol/L (0.7-2.1) Chemistry Test 09/05/18 08:17 09/05/18 09:00 09/05/18 11:01 White Blood Count 31.6 k/uL (4.5-11.0) Red Blood Count 4.14 M/uL (4.00-5.60) Hemoglobin 12.3 g/dL (14.0-18.0) Hematocrit 38.4 % (42.0-52.0) Mean Corpuscular Volume 92.8 fL (80.0-96.0) Mean Corpuscular Hemoglobin 29.7 pg (26.0-33.0) Mean Corpuscular Hemoglobin Concent 32.0 g/dL (32.0-36.0) Red Cell Distribution Width 18.2 % (11.5-14.5) Platelet Count 294 K/uL (150-450) Mean Platelet Volume 9.7 fL (7.2-11.1) Neutrophils (%) (Auto) % (39.4-72.5) Lymphocytes (%) (Auto) % (17.6-49.6) Monocytes (%) (Auto) % (4.1-12.4) Eosinophils (%) (Auto) % (0.4-6.7) Basophils (%) (Auto) % (0.3-1.4) Nucleated RBC Relative Count (auto) /100WBC Neutrophils # (Auto) K/uL (2.0-7.4) Lymphocytes # (Auto) K/uL (1.3-3.6) Monocytes # (Auto) K/uL (0.3-1.0) Eosinophils # (Auto) K/uL (0.0-0.5) Basophils # (Auto) K/uL (0.0-0.1) Nucleated RBC Absolute Count (auto) K/uL Neutrophils % (Manual) 82 % (39.4-72.5) Band Neutrophils % 10 % Lymphocytes % (Manual) 4 % (17.6-49.6) Monocytes % (Manual) 3 % (4.1-12.4) Eosinophils % (Manual) 1 % (0.4-6.7) Basophils % (Manual) 0 % (0.3-1.4) Platelet Estimate Normal Anisocytosis 1+ Peripheral Blood Smear Yes Y/N D-Dimer Quantitative (PE/DVT) 11.36 ug/ml (0-0.50) Glomerular Filtration Rate Calc 8.0 Calcium Level 11.7 mg/dl (8.4-10.2) Total Bilirubin 0.4 mg/dl (0.2-1.3) Aspartate Amino Transf (AST/SGOT) 40 U/L (0-35) Alanine Aminotransferase (ALT/SGPT) 27 U/L (0-56) Alkaline Phosphatase 340 U/L (0-126) Total Protein 7.3 g/dl (6.3-8.2) Albumin 4.6 g/dl (3.5-5.0) Influenza Virus Type A (PCR) Negative (NEGATIVE) Influenza Virus Type B (PCR) Negative (NEGATIVE) Lactate 2.2 mmol/L (0.7-2.1) Coagulation Test 09/05/18 08:17 D-Dimer Quantitative (PE/DVT) 11.36 ug/ml Microbiology Microbiology Date/Time Source Procedure Growth Status 09/05/18 09:12 Blood Peripheral Draw Blood Culture - Preliminary NO GROWTH AFTER 1 DAY, REINCUBATED Resulted 09/05/18 08:59 Blood Peripheral Draw Blood Culture - Preliminary NO GROWTH AFTER 1 DAY, REINCUBATED Resulted EKG/Imaging Imaging Location: [facility] [place] Patient: Wei Osman : 1945 Visit/Account:[id number] Date of Sevice: 09/05/2018 EXAMINATION: CTA Chest With Contrast 09/05/2018 9:14 AM HISTORY: sob; elevated ddimer TECHNIQUE: Pulmonary embolus protocol - Thin-slice axial imaging of the chest was performed during maximal pulmonary arterial opacification with intravenous nonionic iodinated contrast. 3D slab MIPs and 2D reconstructions in the coronal and sagittal planes were performed. Acid Painter images have been stored on PACS. Contrast: 75 mL of IV Isovue 370. One of the following dose optimization techniques was utilized in the p erformance of this exam: Automated exposure control; adjustment of the mA and/or kV according to the patient's size; or use of an iterative reconstruction technique. Specific details can be referenced in the facility's radiology CT exam operational policy. COMPARISON STUDIES: Chest x-ray today. FINDINGS: Angiographic Findings: Pulmonary arteries: There are no filling defects in the main, right, left, lobar, segmental or visualized sub-segmental branches of the pulmonary arterial system Other vasculature: Atherosclerosis includes coronary disease, not unexpected for age. Additional non-angiographic findings: Lungs / pleura: Mildly patchy airspace infiltrate in the right upper lobe and the superior aspect of the right middle lobe. Left lung is clear of acute finding. Mediastinum / joelle: negative Heart / pericardium: negative Musculoskeletal / Body wall: Heterogeneous sclerotic density in the superior aspect of the sternum. Denser ovoid sclerotic focus in the anterior aspect of the right sixth rib is essentially stable comparing to CT abdomen 07/09/2013 and presumably benign. Lymph node assessment: Prominent mediastinal and right hilar lymph nodes. Lower neck: negative Upper abdomen: negative IMPRESSION: 1. Negative CTA evaluation for PE. 2. Right upper lobe and right middle lobe infiltrates. 3. Mediastinal and hilar adenopathy may be reactive although is indeterminate, particularly with a suspicious sclerotic area in the sternum. Does the patient have a known primary elsewhere? Otherwise correlation with PSA would be recommended. Lymphoma would also be a possibility. Report Dictated By: Nikita Guardado MD at 09/05/2018 10:19 AM Report E-Signed By: Nikita Guardado MD at 09/05/2018 10:34 AM WSN:[email or web address] FACILITY: [facility] - [place] PATIENT NAME: Wei Osman : 1945 MR: [id number] V: [id number] EXAM DATE: ORDERING PHYSICIAN: GRADY MACK TECHNOLOGIST: Location: [facility] [place] Patient: Wei Osman : 1945 Visit/Account:[id number] Date of Sevice: 09/05/2018 CHEST PA LAT INDICATION: Fever COMPARISON: February 07, 2018 FINDINGS: The cardiac silhouette is normal in size. New left internal jugular central line with tip in the mid to lower SVC. Moderate to large area of consolidation in the right mid to left upper lobe is new. No acute osseous abnormality. No pleural fluid seen on lateral view. IMPRESSION: Moderate to large right mid to upper lung consolidation concerning for a bronchopneumonia. Recommend 2-4 week chest radiograph follow-up to ensure resolution. Report Dictated By: Medardo Kelly MD at 09/05/2018 9:50 AM Report E-Signed By: Medardo Kelly MD at 09/05/2018 9:52 AM WSN:[email or web address] ED Course/Re-evaluation ED Course 09/05/2018 9:17:08 am patient with elevated creatinine is 6.8 which is slightly above his baseline of 6.6. High concern for possible pulmonary embolism. Patient is on dialysis. We will go ahead CTA of the chest to rule out pulmonary embo lism. 09/05/2018 10:53:58 am I spoke with at [facility]; history physical exam blood work all pertinent imaging studies were reviewed. Concern for multi lobar pneumonia. The treating with broad-spectrum antibiotics. They are requesting a repeat a lactate at this time. Patient did receive 500 mL of normal saline. Patient hemodynamically is doing well. Patient accepted for admission at [facility] for treatment of pneumonia and continued dialysis Decision to Disposition Date: Sep 05, 2018 Decision to Disposition Time: 10:55 Depart Departure Latest Vital Signs Vital Signs Date Time Temp Pulse Resp B/P (MAP) Pulse Ox O2 Delivery O2 Flow Rate FiO2 09/05/18 14:40 79 24 93 Nasal Cannula 2 09/05/18 14:00 127/57 (80) 09/05/18 08:18 98.5 Impression: Primary Impression: Pneumonia Additional Impression: ESRD (end stage renal disease) on dialysis Condition: Improved Disposition: XFER TO [facility] (to DR Garcia at [facility]) Referrals: MEENAKSHI JENKINS CHILD CARE SUPERVISOR (PCP) Problem Qualifiers Primary Impression: Pneumonia Pneumonia type: due to unspecified organism Laterality: right Lung location: upper lobe of lung Qualified Codes: J18.1 - Lobar pneumonia, unspecified organism GRADY MACK MD Sep 05, 2018 08:34
[2018-09-05] MEDS ORDERED: NS(*) 0.9% 500 ML BAG 500 ML IV ONE (08:45)
[2018-09-05] MEDS ORDERED: ONDANSETRON 4 MG/2 ML VIAL IVP ONE (08:45)
[2018-09-05 08:59] LABS: PLATELET COUNT, AUTOMATED 294 K/uL (150-450)
--- NOTE | 2018-09-05 08:59 | EKG ---
FACILITY: [facility] - [place] PATIENT NAME: JUDIT NAGY : [id number] MR: [id number] V: [id number] EXAM DATE: ORDERING PHYSICIAN: GRADY MACK TECHNOLOGIST: FRANCY Zhu Reason : SOB Blood Pressure : / mmHG Vent. Rate : 096 BPM Atrial Rate : 096 BPM P-R Int : 000 ms QRS Dur : 116 ms QT Int : 434 ms P-R-T Axes : 000 -66 035 degrees QTc Int : 548 ms Sinus rhythm with 1st degree AV block premature ventricular complexes Left axis deviation Incomplete right bundle branch block Inferior infarct (cited on or before 22-MAY-2016) Anteroseptal infarct (cited on or before 17-FEB-2015) Prolonged QT Abnormal ECG When compared with ECG of 07-FEB-2018 21:55, Questionable change in initial forces of Septal leads QT has lengthened Confirmed by WES EVANS ([id number]) on 09/05/2018 9:37:27 AM Referred By: FREDERICK Confirmed By:WES EVANS
[2018-09-05] MEDS ORDERED: IOPAMIDOL 76% 150 ML INFUS BTL 150 ML ONE (09:39)
[2018-09-05] MEDS ORDERED: NS(*) 0.9% 50 ML BAG 50 ML ONE (09:39)
--- NOTE | 2018-09-05 09:56 | RADIOLOGY IMAGING REPORT ---
FACILITY: [facility] [place] PATIENT NAME: Wei Osman : 1945 MR: [id number] V: [id number] EXAM DATE: ORDERING PHYSICIAN: GRADY MACK TECHNOLOGIST: Location: [facility] Patient: Wei Osman : 1945 Visit/Account:[id number] Date of Sevice: 09/05/2018 CHEST PA LAT INDICATION: Fever COMPARISON: February 07, 2018 FINDINGS: The cardiac silhouette is normal in size. New left internal jugular central line with ti p in the mid to lower SVC. Moderate to large area of consolidation in the right mid to left upper lo be is new. No acute osseous abnormality. No pleural fluid seen on lateral view. IMPRESSION: Moderate to large right mid to upper lung consolidation concerning for a bronchopneumonia. Recommend 2-4 week chest radiograph follow-up to ensure resolution. Report Dictated By: Medardo Kelly MD at 09/05/2018 9:50 AM Report E-Signed By: Medardo Kelly MD at 09/05/2018 9:52 AM WSN:[email or web address]
[2018-09-05] MEDS ORDERED: VANCOMYCIN 1 GM ADDVIAL 1 GM in NS(*) 0.9% 250 ML ADDVAN BAG 250 ML IVPB ONE (10:10)
[2018-09-05] MEDS ORDERED: metroNIDAZOLE* 500MG/100ML BAG 100 ML IVPB ONE (10:10)
[2018-09-05] MEDS ORDERED: CEFEPIME HCL 2 GM VIAL IVP ONE (10:10)
[2018-09-05] MEDS ORDERED: NS 0.9% IVPB ONE ×2 (10:30→11:00)
[2018-09-05] MEDS ORDERED: VANCOMYCIN IVPB ONE (10:30)
[2018-09-05] MEDS ORDERED: ADDVIAL IVPB ONE (10:30)
--- NOTE | 2018-09-05 10:38 | RADIOLOGY IMAGING REPORT ---
FACILITY: [facility] PATIENT NAME: Wei Osman : 1945 MR: [id number] V: [id number] EXAM DATE: ORDERING PHYSICIAN: GRADY MACK TECHNOLOGIST: Location: [facility] Patient: Wei Osman : 1945 Visit/Account:[id number] Date of Sevice: 09/05/2018 EXAMINATION: CTA Chest With Contrast 09/05/2018 9:14 AM HISTORY: sob; elevated ddimer TECHNIQUE: Pulmonary embolus protocol - Thin-slice axial imaging of the chest was performed during maximal pulmonary arterial opacification with intravenous nonionic iodinated contrast. 3D slab MIPs a nd 2D reconstructions in the coronal and sagittal planes were performed. Metal Mold Dresser images have b een stored on PACS. Contrast: 75 mL of IV Isovue 370. One of the following dose optimization techniques was utilized in the performance of this exam: Autom ated exposure control; adjustment of the mA and/or kV according to the patient's size; or use of an i terative reconstruction technique. Specific details can be referenced in the facility's radiology C T exam operational policy. COMPARISON STUDIES: Chest x-ray today. FINDINGS: Angiographic Findings: Pulmonary arteries: There are no filling defects in the main, right, left, lobar, segmental or visual ized sub-segmental branches of the pulmonary arterial system Other vasculature: Atherosclerosis includes coronary disease, not unexpected for age. Additional non-angiographic findings: Lungs / pleura: Mildly patchy airspace infiltrate in the right upper lobe and the superior aspect of the right middle lobe. Left lung is clear of acute finding. Mediastinum / joelle: negative Heart / pericardium: negative Musculoskeletal / Body wall: Heterogeneous sclerotic density in the superior aspect of the sternum. Denser ovoid sclerotic focus in the anterior aspect of the right sixth rib is essentially stable comp aring to CT abdomen 07/09/2013 and presumably benign. Lymph node assessment: Prominent mediastinal and right hilar lymph nodes. Lower neck: negative Upper abdomen: negative IMPRESSION: 1. Negative CTA evaluation for PE. 2. Right upper lobe and right middle lobe infiltrates. 3. Mediastinal and hilar adenopathy may be reactive although is indeterminate, particularly with a s uspicious sclerotic area in the sternum. Does the patient have a known primary elsewhere? Otherwise correlation with PSA would be recommended. Lymphoma would also be a possibility. Report Dictated By: Nikita Guardado MD at 09/05/2018 10:19 AM Report E-Signed By: Nikita Guardado MD at 09/05/2018 10:34 AM WSN:[email or web address]
[2018-09-05] MEDS ORDERED: CEFEPIME HCL IVPB ONE (11:00)
[2018-09-05 14:00] VITALS: BP 127/57
== END 2018-09-05 15:02 | disposition short-term general hospital (02) ==
LOC: ER 08:43
DX: J18.1 Lobar pneumonia, unspecified organism (principal); N18.6 End stage renal disease
CPT/HCPCS: 36415; 71046; 71275; 83605; 85025; 85379; 87040; 87502; 93005; 96361; 96365; 96366; 96375; 99285; J0692; J2405; J3370; J3490; J7040; J7050; Q9967; 82040; 82247; 82310; 82374; 82435; 82565; 82947; 84075; 84132; 84155; 84295; 84450; 84460; 84520

== ENCOUNTER → 2018-09-05 | Outpatient (CLI) | payer MEDICARE, BC ==
[2017-02-18 08:45] VITALS: BMI 24.5
== END ==
LOC: AMB 14:41
PROVIDERS: ATTEND Nurse Practitioner
DX: J18.9 Pneumonia, unspecified organism (principal); N18.4 Chronic kidney disease, stage 4 (severe); Z99.2 Dependence on renal dialysis
CPT/HCPCS: A0425; A0426

== ENCOUNTER 2018-09-21 13:04 | Outpatient (RCR) | payer MEDICARE, BC ==
[2017-02-18 08:45] VITALS: BMI 24.5
[2018-09-21] MEDS ORDERED: CYANOCOBALAMIN 1000MCG/ML VIAL IM ONLY ONE (14:35)
[2018-10-21] MEDS ORDERED: CYANOCOBALAMIN 1000MCG/ML VIAL IM ONLY ONE (14:00)
[2018-11-18] MEDS ORDERED: CYANOCOBALAMIN 1000MCG/ML VIAL IM ONLY ONE ×2 (11:45→14:45)
== END 2018-12-02 13:33 | disposition home or self-care (01) ==
LOC: SPU 13:04
PROVIDERS: ATTEND Internal Medicine Hematology
DX: D69.6 Thrombocytopenia, unspecified (principal); N18.9 Chronic kidney disease, unspecified
CPT/HCPCS: 96372; J3420

== ENCOUNTER 2018-09-27 01:08 | Day surgery (SDC) | payer MEDICARE, BC ==
[2017-02-18 08:45] VITALS: Ht 177.8 cm; Wt 67.1 kg
[~2018-09-27] VITALS: Ht 177.8 cm; Wt 67.1 kg
[2018-09-27] VITALS (7 sets, daily range): BP systolic 102–122; BP diastolic 47–70
[2018-09-27] MEDS ORDERED: fentaNYL CITR 100 MCG/2 ML AMP ONE (09:31)
[2018-09-27] MEDS ORDERED: LIDOCAINE MPF 1% 5 ML VIAL ONE (09:32)
[2018-09-27] MEDS ORDERED: PROPOFOL EMUL(*) 10MG/ML 20 ML 20 ML ONE ×2 (09:32→10:38)
[2018-09-27] MEDS ORDERED: ONDANSETRON 4 MG/2 ML VIAL ONE (09:32)
[2018-09-27] MEDS ORDERED: VANCOMYCIN 1 GM ADDVIAL 1 GM in NS(*) 0.9% 250 ML ADDVAN BAG 250 ML IVPB ONE (09:35)
[2018-09-27] MEDS ORDERED: NS(*) 0.9% 500 ML BAG 500 ML IV PRN (09:55)
[2018-09-27] MEDS ORDERED: MIDAZOLAM 2 MG/2 ML VIAL IVP PRN (09:55)
[2018-09-27] MEDS ORDERED: LIDOCAINE/SOD BICARB 8.4% SYR ID ONE (09:55)
[2018-09-27] MEDS ORDERED: HEPARIN SOD LCK FLSH 100 UN/ML ONE (10:35)
[2018-09-27] MEDS ORDERED: [UNRECOGNIZED DRUG - OTHER] ONE (10:35)
[2018-09-27] MEDS ORDERED: HEPARIN (PORC) 5000 UN/ML VIAL ONE ×3 (10:35→11:40)
[2018-09-27] MEDS ORDERED: LIDO/EPI 1% MDV 1:100,000 20ML INFIL ONE (11:06)
--- NOTE | 2018-09-27 12:12 | Short(Outpt) Discharge Summary ---
Discharge Summary Reason for Hosp/Final Diag: (1) CRI (chronic renal insufficiency) Status: Chronic Hospital Course & Plan: 72 yo m presented for dialysis catheter replacement. he tolerated the procedure well and there were no complications. he will be discharged home when criteria met. Departure Discharge to: Home Discharge Instructions Home Meds Active Scripts [B12] No Conflict Check, 1000 MCG IM Monthly, #22 MCG 1 Refill Inject 1000mcg monthly Prov:SATHISH HENRY OLIVING MACHINE OPERATOR-BC, ONC 04/06/16 Reported Medications Hydralazine Hcl (HYDRALAZINE HCL) 50 Mg Tablet, 50 MG PO QDAY, TAB 07/08/18 Clopidogrel Bisulfate (PLAVIX) 75 Mg Tablet, 1 TAB PO QDAY, TAB 03/04/18 Vitamin B Cmplx/Vit C/Folic Ac (TRIPHROCAPS SOFTGEL) 1 Each Cap, 1 EACH PO DAILY, CAP 02/21/18 Calcium Carbonate (CALCIUM CARBONATE) 500 Mg Tablet, 500 MG PO TIDCF 02/21/18 Diltiazem Hcl (CARTIA XT) 240 Mg Cap.er.24h, 240 MG PO QPM 120mg in the mornings 02/21/18 Loperamide Hcl (LOPERAMIDE) 2 Mg Tablet, 2 MG PO PRN PRN for DIARRHEA 02/21/18 Insulin Glargine (LANTUS) 100 Unit/Ml Soln, 4 UNIT SUBQ QDAY, ML 4 units with dinner 02/18/18 Mesalamine (PENTASA) 250 Mg Capcr, 1000 MG PO BID 01/17/18 Insulin Glargine (LANTUS) 100 Unit/Ml Soln, 25 UNIT SUBQ QAM, ML 08/08/17 Furosemide (LASIX) 40 Mg Tablet, 80 MG PO non dialysis days, TAB take (2) two 40mg by mouth on non dialysis days (T, Sonali, Sat, and Sun) 10/15/15 Vit A,C & E/Lutein/Minerals (OCUVITE TABLET) 1 Each Tablet, 1 EACH PO DAILY 06/22/15 Pentoxifylline (PENTOXIFYLLINE) 400 Mg Tabsr, 400 MG PO BID 03/13/15 Dicyclomine Hcl (DICYCLOMINE HCL) 20 Mg Tablet, 20 MG PO QID 01/23/15 Levothyroxine Sodium (LEVOTHYROXINE SODIUM) 25 Mcg Tablet, 25 MCG PO QDAY 07/09/13 Pravastatin Sodium (PRAVASTATIN SODIUM) 20 Mg Tablet, 10 MG PO QDAY 07/09/13 Aspirin (Adult Aspirin) 81 Mg Tab.chew, 81 MG PO DAILY 03/22/07 Anagrelide Hcl (Agrylin) 0.5 Mg Capsule, 0.5 MG PO QID 03/22/07 Diet: Regular Activity: As Tolerated Special Instructions: follow up with dr. kate dyson 10-14 days ([phone]) ok to remove and replace bandage in 2 days JASSON DYSON Sep 27, 2018 12:12
--- NOTE | 2018-09-27 12:14 | Post Operative Progress Note ---
Post Operative Progress Note Date: Sep 27, 2018 Time: 12:13 Surgeon: dr. kate dyson Thermal Cutter Helper: none Anesthesia: mac, local Pre-Op Diagnosis: ckd Post-Op Diagnosis: ckd Findings: previous catheter cuff exposed Procedure(s): exchange of left ij dldc Specimen Removed:(May be N/A): catheter tip for cx Complications: none Estimated Blood Loss: <50 ml JASSON DYSON Sep 27, 2018 12:14
--- NOTE | 2018-09-27 13:21 | RADIOLOGY IMAGING REPORT ---
FACILITY: [facility] PATIENT NAME: Wei Osman : 1945 MR: [id number] V: [id number] EXAM DATE: ORDERING PHYSICIAN: JASSON GUTIERREZ TECHNOLOGIST: [facility] Patient: Wei Osman : 1945 Visit/Account:[id number] Date of Sevice: 09/27/2018 C-ARM FLUORO 1 HR HISTORY: CENTRAL LINE PLACEMENT Additional history: None COMPARISON: None. FINDINGS: Intraoperative fluoroscopic placement of a large-bore double-lumen central line-probable dialysis cat heter. Final image demonstrates catheter tip projecting over the right atrium of the heart. Fluoroscopy time one minute 22 seconds DAP: 1.14 Gy-cm2 IMPRESSION: Fluoroscopic central line placement Report Dictated By: Reynold Ocasio MD at 09/27/2018 1:13 PM Report E-Signed By: Reynold Ocasio MD at 09/27/2018 1:16 PM WSN:[email or web address]
--- NOTE | 2018-09-27 14:47 | NUR ---
1159- PT. RECEIVED FROM OR VIA STRETCHER WITH THE SIDERAILS UP. SBAR RECEIVED FROM SAMANTHA CROWLEY AND DR. GARCIA. SEE ADMISSION ASSESSMENT. 1207- TURNED PT. O2 DOWN TO 2LPM NC. 1209- PT. HAD SOME BLOOD LEAKING UNDER THE DRESSING SO I REINFORCED THE DRESSING. 1210- PT. REQUESTS DIET COKE, MATT CRACKERS AND CHOCOLATE PUDDING. 1215- PT. REPORTS SLIGHT BURNING SENSATION AT THE INCISION SITE BUT ALL APPEARS FINE. 1230- PT. BROUGHT TO THE BEDSIDE. 1250- RETURNED TO ROOM AIR. 1336- ORTHOSTATICS PREFORMED AND PT. REPORTS NO N/V/DIZZINESS. 1341- IV TAKEN OUT AND PRESSURE DRESSING APPLIED. 1344- DISCHARGE INSTRUCTIONS GONE OVER WITH PT AND . STATED UNDERSTANDING. 1345- PT. ESCORTED OUT AMBULATORY WITH BY GARETT CROWLEY.
--- NOTE | 2018-09-27 17:34 | OPERATIVE REPORT 1 ---
EVENT DATE: September 27, 2018 SURGEON: Lacho Mendez MD ANESTHESIOLOGIST: Uri Hidalgo MD ANESTHESIA: MAC and local. SAND CUTTER: None. PREOPERATIVE DIAGNOSIS Chronic kidney disease. POSTOPERATIVE DIAGNOSIS Chronic kidney disease. PROCEDURE PERFORMED Exchange of left internal jugular dialysis catheter with fluoroscopic guidance. ESTIMATED BLOOD LOSS Less than 50 mL. SPECIMENS None. COMPLICATIONS None. INDICATIONS This is a 72-year-old male with end-stage renal disease. He is waiting for a fistula in his right upper extremity to be appropriate for hemodialysis. In the meantime, he is being dialyzed through a left internal jugular tunneled catheter. The cuff on this catheter, however, has exited the skin. I spoke with his tailman. Patient has had recent infections and has been treated for these with appropriate antibiotics. His tailman and I feel that it is the appropriate time to proceed with catheter replacement. Risks and benefits of the procedure were explained, and consent was signed. DESCRIPTION OF PROCEDURE Patient was taken to the operating room and placed in the supine position. MAC anesthesia was induced per the anesthesia team. Patient was prepped and draped in normal sterile fashion. Local analgesia was injected into the dermis of the left neck, and a small incision was made over the curve of the catheter. The catheter was freed of surrounding tissue. Catheter was grasped with a hemostat distally and was divided sharply proximally. A small amount of sharp dissection was needed to free the portion of the cuff that was attached to skin, and then the distal portion of the catheter was easily removed. The tip was sent for culture. I then made a small incision after injecting local analgesia laterally to the existing exit site. The 28 cm dual-lumen dialysis catheter was tunneled through the subcutaneous tissue to the neck incision. It appeared based on the site of placement of the last catheter and the location of the tip on x-ray that placing an exit site near this would be appropriate in terms of final location of the tip of the catheter; however, I decided that I would need more of a tunneled length in order to keep the Dacron cuff within the tunnel as well as have the tip in the appropriate location. Therefore, I made other incisions after injecting local in order to lengthen this track. Under fluoroscopic guidance, I threaded the dilator through the existing catheter. The existing catheter was then removed. I advanced the dilator and sheath under fluoroscopic guidance over the guidewire. Guidewire and dilator were then removed. The new catheter was advanced through the sheath, and the tear-away sheath was removed. Fluoroscopy confirmed appropriate placement of the tip of the catheter after making the adjustments previously described to lengthen the track. Both lumens of the catheter aspirated and flushed easily. Full-strength heparin in an appropriate amount was placed within each lumen. The incisions were closed with 4-0 Monocryl subcuticular stitches or 2-0 silk stitches. Catheter was secured to the skin with 2-0 silk stitches. Appropriate dressings were applied. Patient tolerated the procedure well. There were no complications. AL
== END 2018-09-27 13:45 | disposition short-term general hospital (02) ==
LOC: OR 01:08
PROVIDERS: ATTEND Surgery
DX: N18.6 End stage renal disease (principal); I10 Essential (primary) hypertension; E10.9 Type 1 diabetes mellitus without complications
CPT/HCPCS: 36416; 36558; 76000; 82948; 87071; 87073; 87205; J1644; J2001; J2405; J2704; J3010; J3370; J7040; J7050; 82310; 82374; 82435; 82565; 82947; 84132; 84295; 84520

== ENCOUNTER 2018-09-27 20:00 | Emergency (ER) | payer MEDICARE, BC ==
[2017-02-18 08:45] VITALS: Wt 67.4 kg
[2018-09-27 20:11] VITALS: BP 146/72
--- NOTE | 2018-09-27 20:22 | ER Report ---
History and Physical Time Seen By MD: 20:22 Hx. of Stated Complaint: BLEEDING AFTER PORT PLACEMENT HPI/ROS CHIEF COMPLAINT: Bleeding from thoracic catheter site HISTORY OF PRESENT ILLNESS: Patient is a 72-year-old male with a history of platelet disorder here with complaints of bleeding from a left sided chest hemodialysis catheter which was placed today. Patient has a history of bleeding from catheter sites due to his platelet disorder. Patient reports that he had oozing from underneath the bandage site which started shortly after the procedure. Patient denies fevers, chills, chest pain, lightheadedness, near syncopal episodes. REVIEW OF SYSTEMS: Constitutional: No fever, no chills. Eyes: No discharge. ENT: No sore throat. Cardiovascular: No chest pain, no palpitations.+ Bleeding from left chest hemodialysis catheter site Respiratory: No cough, no shortness of breath. Gastrointestinal: No abdominal pain, no vomiting. Genitourinary: No hematuria. Musculoskeletal: No back pain. Skin: No rashes. Neurological: No headache. Allergies: Coded Allergies: No Known Drug Allergies (Unverified , 09/05/18) Home Meds Active Scripts [B12] No Conflict Check, 1000 MCG IM Monthly, #22 MCG 1 Refill Inject 1000mcg monthly Prov:SATHISH [employer], ONC 04/06/16 Reported Medications Hydralazine Hcl (HYDRALAZINE HCL) 50 Mg Tablet, 50 MG PO QDAY, TAB 07/08/18 Clopidogrel Bisulfate (PLAVIX) 75 Mg Tablet, 1 TAB PO QDAY, TAB 03/04/18 Vitamin B Cmplx/Vit C/Folic Ac (TRIPHROCAPS SOFTGEL) 1 Each Cap, 1 EACH PO DAILY, CAP 02/21/18 Calcium Carbonate (CALCIUM CARBONATE) 500 Mg Tablet, 500 MG PO TIDCF 02/21/18 Diltiazem Hcl (CARTIA XT) 240 Mg Cap.er.24h, 240 MG PO QPM 120mg in the mornings 02/21/18 Loperamide Hcl (LOPERAMIDE) 2 Mg Tablet, 2 MG PO PRN PRN for DIARRHEA 02/21/18 Insulin Glargine (LANTUS) 100 Unit/Ml Soln, 4 UNIT SUBQ QDAY, ML 4 units with dinner 02/18/18 Mesalamine (PENTASA) 250 Mg Capcr, 1000 MG PO BID 01/17/18 Insulin Glargine (LANTUS) 100 Unit/Ml Soln, 25 UNIT SUBQ QAM, ML 08/08/17 Furosemide (LASIX) 40 Mg Tablet, 80 MG PO non dialysis days, TAB take (2) two 40mg by mouth on non dialysis days (T, Sonali, Sat, and Sun) 10/15/15 Vit A,C & E/Lutein/Minerals (OCUVITE TABLET) 1 Each Tablet, 1 EACH PO DAILY 06/22/15 Pentoxifylline (PENTOXIFYLLINE) 400 Mg Tabsr, 400 MG PO BID 03/13/15 Dicyclomine Hcl (DICYCLOMINE HCL) 20 Mg Tablet, 20 MG PO QID 01/23/15 Levothyroxine Sodium (LEVOTHYROXINE SODIUM) 25 Mcg Tablet, 25 MCG PO QDAY 07/09/13 Pravastatin Sodium (PRAVASTATIN SODIUM) 20 Mg Tablet, 10 MG PO QDAY 07/09/13 Aspirin (Adult Aspirin) 81 Mg Tab.chew, 81 MG PO DAILY 03/22/07 Anagrelide Hcl (Agrylin) 0.5 Mg Capsule, 0.5 MG PO QID 03/22/07 Hx Smoking: No (CHEWS 1 CAN Q 3 DAYS FOR 40 YEARS. SMOKED AGE 18 TO 23) Smoking Status: Former Smoker Exposure to Second Hand Smoke?: No Hx Substance Use Disorder: No Hx Alcohol Use: Yes Constitutional Vital Sign - Last 24 Hours 09/27/18 20:11 Temp 98.1 Pulse 93 Resp 16 B/P (MAP) 146/72 Pulse Ox 90 O2 Delivery Room Air Physical Exam General Appearance: The patient is alert, has no immediate need for airway protection and no signs of toxicity. No acute distress Eyes: Pupils equal and round no pallor or injection. ENT, Mouth: Mucous membranes are moist. Respiratory: There are no retractions, lungs are clear to auscultation. Cardiovascular: Regular rate and rhythm. Gastrointestinal: Abdomen is soft and non tender, no masses, bowel sounds normal. Neurological: No focal neurological findings Skin: Warm and dry, no rashes. + Using the bleeding from left chest at site of prior hemodialysis catheter which was removed today Musculoskeletal: Neck is supple non tender. Extremities are nontender, nonswollen and have full range of motion. [ ] DIFFERENTIAL DIAGNOSIS: After history and physical exam differential diagnosis was considered for bleeding disorder, postop bleeding Medical Decision Making ED Course/Re-evaluation ED Course Patient is a 72-year-old male here with complaints of bleeding from postoperative wound site. Hemodialysis catheter was removed and move to a different site on the left chest wall. Patient had bleeding after being discha rged. Primary bleeding site was identified and 2 sutures were used to close the site and Surgicel was applied to both the site and a site superior to the repaired site. Hemostasis was achieved. Site was cleaned using chlorhexidine. Return precautions provided. Procedure The bleeding postoperative wound was identified and left chest wall where the prior hemodialysis catheter was removed. 2 sutures 4-0 Ethilon were used to close the bleeding site. Surgicel was applied to the site as well as a prior sutured site superior to the repaired wound. Hemostasis was achieved, patient tolerated procedure well. Decision to Disposition Date: Sep 27, 2018 Decision to Disposition Time: 21:16 Depart Departure Latest Vital Signs Vital Signs Date Time Temp Pulse Resp B/P (MAP) Pulse Ox O2 Delivery O2 Flow Rate FiO2 09/27/18 20:11 98.1 93 16 146/72 90 Room Air Impression: Primary Impression: Postoperative bleeding from incision Condition: Improved Disposition: HOME OR SELF-CARE Referrals: MEENAKSHI JENKINS (PCP) Patient Instructions: Postoperative Bleeding (ED) Additional Instructions: Please monitor the site for bleeding. Please follow-up with your previously scheduled appointments. Please return if you develop fevers, recurrent bleeding. PAT MALIK DO Sep 27, 2018 20:22
== END 2018-09-27 21:50 | disposition home or self-care (01) ==
LOC: ER 20:36
DX: T82.838A Hemorrhage due to vascular prosthetic devices, implants and grafts, initial encounter (principal); Z87.891 Personal history of nicotine dependence
CPT/HCPCS: 99284

== ENCOUNTER → 2018-10-12 | Outpatient (CLI) | payer MEDICARE, BC ==
[2017-02-18 08:45] VITALS: BMI 24.5
--- NOTE | 2018-10-12 17:22 | RADIOLOGY IMAGING REPORT ---
FACILITY: [facility] PATIENT NAME: Wei Osman : 1945 MR: [id number] V: [id number] EXAM DATE: ORDERING PHYSICIAN: TRINH KELLY TECHNOLOGIST: Location: [facility] Patient: Wei Osman : 1945 Visit/Account:[id number] Date of Sevice: 10/12/2018 Exam type: CHEST PA LAT History: Follow-up pneumonia, 46 weeks out, small cough and shortness of breath Comparison: September 05, 2018. Findings: There has been almost complete clearing of the right-sided pulmonary infiltrates. There is minimal p eribronchial thickening and streaky changes in the right mid to lower lung field. There is no eviden ce of pleural effusions. The cardiac silhouette appears stable. Left-sided central venous catheter is noted with the distal tip in superior vena cava. IMPRESSION: 1. A most complete clearing the right-sided pulmonary infiltrates with minimal peribronchial thicken ing and streaky changes in the right mid to lower lung field. Report Dictated By: Kala Choe MD at 10/12/2018 5:16 PM Report E-Signed By: Kala Choe MD at 10/12/2018 5:18 PM WSN:[email or web address]
== END ==
LOC: RAD 16:29
PROVIDERS: ATTEND Internal Medicine Nephrology
DX: J18.9 Pneumonia, unspecified organism (principal); R53.1 Weakness
CPT/HCPCS: 71046

== ENCOUNTER 2018-11-08 10:30 | Outpatient (RCR) | payer MEDICARE, BC ==
[2017-02-18 08:45] VITALS: BMI 24.5
--- NOTE | 2018-09-26 12:29 | PT INITIAL EVALUATION ---
MEDICAL DIAGNOSIS: Dehisced surgical incision; R) medial upper arm; just proximal to medial epicondyle TREATMENT DIAGNOSIS: same DATE OF ONSET: Jun 2018 SUBJECTIVE: Pt reports a recent history of ER visits and complications since surgical procedure related to shunt for dialysis. Pt notes that he is currently finished with antibiotics and was referred for wound care by the dialysis clinic with surgeon Dr. Irvin to follow. REHAB PROBLEM LIST: Open wound with undermining at R) medial upper arm. PREVIOUS MEDICAL HISTORY: See EMR OCCUPATION: Retired OBJECTIVE: Wound measures: 1.4cm L x 0.2cm W x 0.3cm central depth; undermining noted from 10-12 o'clock measures 1 -2 cm. ASSESSMENT: Non-excisional debridement completed with the use of tweezers to a depth of subcutaneous tissue in order to remove slough and non-viable tissue. Wound cleansed with sterile saline and packed gently with 0.25" gauze packing strip with silver hydrogel, followed by calcium alginate pad at opening and secured with bordered gauze dressing. Pt to return for debridement and close monitoring M,W,F prior to dialysis treatment sessions. Short Term Goals 1. Area of undermining to lessen and close gradually without abscess formation. 2. Bruit in vessel to remain audible 3. Wound edges to close in after full granulation 4. Full epithelialization with no further drainage or signs/symptoms of infection. Patient's Goals Wound to heal without further complications. PLAN: Patient to be seen for conservative, selective debridement of open wound to remove non-viable tissue and slough, while encouraging closure of undermined area using advanced wound care products for wicking and drainage management. Progressively decreasing frequency of visits as tolerated if drainage is well managed. 3x/Week for up to 3 months Thank you for this referral. If you have any questions, comments, or concerns about this report or plan, please contact me at . H. Yahaira Nicolas, PT, MPT, OMS MACARIOD
--- NOTE | 2018-10-18 14:41 | PT INITIAL EVALUATION ---
MEDICAL DIAGNOSIS: Weakness, Deconditioning TREATMENT DIAGNOSIS: Same, peripheral Neuropathy, L BPPV DATE OF ONSET: SUBJECTIVE: Wei Osman presents to PT for weakness and deconditioning after hospitalization for pneumonia 09/05/18. He lives in a single level home with his . He notes he has frequent LOB with ambulating in the community. Wei notes he has dense peripheral neuropathy. he reports dizziness with turning L in bed, for years. REHAB PROBLEM LIST: Decreased ROM Decreased Strength Decreased Endurance Decreased Balance Decreased Gait PREVIOUS MEDICAL HISTORY: DM, stage 4 CKD (dialysis), pneumonia, PAMUNKEY, anemia, CAD, bowel resection, pneumonia. 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 OBJECTIVE: Posture: Heels 6" apart, steady, mild trunk flexion. Strength: Hip flexors and quads B 4/5, ankle DF 5-/5, peroneals 5/5, posterior tib. R 5-/5, L 4+/5. Sensation: Lufkin-Abiodun monofilament sensation testing: plantar feet L forefoot "R" 6.10, rest of plantar feet "Q" 5.88, all loss of deep pressure sensation. Special Tests: Positive nystagmus upbeating and torsional two beats of nystagmus with dizziness. Mobility: Independent transfers and bed mobility. Rolling L supine to L with dizziness. Gait: Mild weaving with gait on the level, difficulty with foot kinesthetics with cane and box tapping, catching fore feet on 6" box. Functional Gait Assessment 50% impairment, strong weaving with gait with head motion, unable to do two steps with tandem gait, can't walk backward eyes open, forward eyes shut. Stair use with handrail with mild eccentric quad weakness in descent. Balance: Double limb support. Garcia Balance Assessment 44, a 21% impairment, with the static components of Garcia balance WNL, dynamic balance sections with poor balance. ASSESSMENT: Wei Osman presents with fall risk, weakness, peripheral neuropathy and vestibular dysfunction affecting gait and balance. He did well with L BPPV Moustapha's maneuver. Short Term Goals One month: Wei ambulates with normal line of progression with head motion. Two months: Wei demonstrates corrective balance reactions on firms surfaces after perturbation. Patient's Goals Improve balance with ambulation. PLAN: Patient to be seen for Strengthening/condition, Stretching, Neuromuscular Re-ed, Gait Trg/Balance Trg, Home Exercise Program for 2x/Week for 2 Months Thank you for this referral. If you have any questions, comments, or concerns about this report or plan, please contact me at . Family Nurse Practitioner signature date MTDD
--- NOTE | 2018-10-28 12:19 | PT PLAN OF CARE ---
MEDICAL DIAGNOSIS: Dehisced surgical incision; R) medial upper arm; just proximal to medial epicondyle TREATMENT DIAGNOSIS: same DATE OF ONSET: Jun 2018 SUBJECTIVE: Pt arrives for scheduled appointment and notes that he was seen earlier this week by Dr. Irvin who feels that the wound no longer needs to be covered and has instructed pt to be done with wound care. REHAB PROBLEM LIST: Open wound at R) medial upper arm. PREVIOUS MEDICAL HISTORY: See EMR OCCUPATION: Retired OBJECTIVE: Wound measures: 0.4cm L x 0.2cm W x 0.2cm central depth with medial edge demonstrating epibole. ASSESSMENT: PT observed wound that pt was instructed to leave open to air by surgeon. Wound is still open, with medial border still rolled inward with epibole. Pt has scant drainage but notes that it does not get onto clothing. Pt indicates that surgeon has instructed him to shower as usual and allow wound to remain open to air. No further debridement indicated and pt states that he will have dialysis nurses monitor for any changes. Short Term Goals (Primarily met) 1. Area of undermining to lessen and close gradually without abscess formation. 2. Bruit in vessel to remain audible 3. Wound edges to close in after full granulation 4. Full epithelialization with no further drainage or signs/symptoms of infection. Patient's Goals Wound to heal without further complications. PLAN: Pt states that dialysis has been so far unable to utilize this site as a functioning fistula for dialysis and he is scheduled to have a fistulagram completed and follow up with Dr. rIvin regarding further need for fisutla care as well. Pt currently has a temporary port on L) upper chest wall for dialysis. Pt to follow up with specialists as indicated and will continue with PT for strengthening and balance as noted in other eval report. Thank you for this referral. If you have any questions, comments, or concerns about this report or plan, please contact me at . H. Yahaira Nicolas, PT, MPT, OMS MTDD
== END 2018-11-10 ==
LOC: PT 10:30
PROVIDERS: ATTEND Nurse Practitioner Family
DX: T81.31XA Disruption of external operation (surgical) wound, not elsewhere classified, initial encounter (principal); R26.89 Other abnormalities of gait and mobility; M62.81 Muscle weakness (generalized)
CPT/HCPCS: 97161; 97162

== ENCOUNTER → 2018-11-10 | Outpatient (REF) | payer MEDICARE, BC ==
[2017-02-18 08:45] VITALS: BMI 24.5
== END ==
LOC: ZZSENDIN 13:08
DX: R97.20 Elevated prostate specific antigen [PSA] (principal)
CPT/HCPCS: 84153

== ENCOUNTER → 2018-12-09 | Outpatient (REF) | payer MEDICARE, BC ==
[2017-02-18 08:45] VITALS: BMI 24.5
== END ==
LOC: ZZSENDIN 14:51
PROVIDERS: ATTEND Nurse Practitioner Family
DX: K52.3 Indeterminate colitis (principal); R19.7 Diarrhea, unspecified; K21.9 Gastro-esophageal reflux disease without esophagitis; Q45.3 Other congenital malformations of pancreas and pancreatic duct; I10 Essential (primary) hypertension
CPT/HCPCS: 82040; 82247; 82310; 82374; 82435; 82565; 82947; 84075; 84132; 84155; 84295; 84450; 84460; 84520; 86140

== ENCOUNTER 2018-12-23 12:16 | Outpatient (RCR) | payer MEDICARE, BC ==
[2017-02-18 08:45] VITALS: BMI 24.5
[~2018-12-23 12:16] MED LIST changes: -CALC-488 PO; +CALC-743 PO; -PENT400T57 PO; +PENT400T83 PO
[2018-12-23] MEDS ORDERED: CYANOCOBALAMIN 1000MCG/ML VIAL IM ONLY ONE (16:00)
[2019-01-18] MEDS ORDERED: CYANOCOBALAMIN 1000MCG/ML VIAL IM ONLY ONE (14:00)
[2019-01-20] MEDS ORDERED: CYANOCOBALAMIN 1000MCG/ML VIAL IM ONLY ONE (11:50)
== END 2019-01-23 13:05 | disposition home or self-care (01) ==
LOC: SPU 12:16
PROVIDERS: ATTEND Internal Medicine Hematology
DX: D69.6 Thrombocytopenia, unspecified (principal); N18.9 Chronic kidney disease, unspecified
CPT/HCPCS: 96372; J3420

== ENCOUNTER → 2019-02-09 | Outpatient (RCR) | payer MEDICARE, BC ==
[2017-02-18 08:45] VITALS: BMI 24.5
--- NOTE | 2018-11-11 11:04 | PT PLAN OF CARE ---
Physician: SUKUMAR Weems Patient is being seen: 2x/week Therapist: Nilda Barbosa PT Medical Diagnosis: Weakness, Deconditioning Treatment Diagnosis: Same, peripheral Neuropathy, L BPPV Date of Onset: Date of Initial Evaluation: 10/18/18 Date patient was last seen: 11/11/18 Number of treatments: 6 Number of cancellations/No shows: 0 INTERVENTIONS: Strengthening/condition, Stretching, Neuromuscular Re-ed, Gait Trg/Balance Trg GOALS: One month: eWi ambulates with normal line of progression with head motion. progressing Two months: Wei demonstrates corrective balance reactions on firms surfaces after perturbation. not met PATIENT'S GOAL: Improve balance with ambulation. 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 He feels he's more steady. Posture: Heels 4" apart, steady, upright trunk. Balance: Garcia Balance Assessment improved from 21% to 13%. Gait: Functional Gait Assessment improved from 50% to 48%. Bacilio still has difficulty with foot kinesthetics, weaves with gait with head motion and does 4- 7 steps with tandem gait. He now turns <3 seconds with control. A/P: Wei Osman is improving balance, still needs vestibular training for balance. If you agree, we'll continue PT at 2x/week 5-6 weeks. Thank you. SUKUMAR Weems date MTDD
--- NOTE | 2018-12-20 18:13 | PT PLAN OF CARE ---
Physician: SUKUMAR Weems Patient is being seen: 2x/week Therapist: Nilda Barbosa PT Medical Diagnosis: Weakness, Deconditioning Treatment Diagnosis: Same, peripheral Neuropathy, L BPPV Date of Onset: Date of Initial Evaluation: 10/18/18 Date patient was last seen: 12/20/18 Number of treatments: 16 Number of cancellations/No shows: 0 INTERVENTIONS: Strengthening/condition, Neuromuscular Re-ed, Gait Trg/Balance Trg GOALS: One month: Wei ambulates with normal line of progression with head motion. progressing Two months: Wei demonstrates corrective balance reactions on firms surfaces after perturbation. not met PATIENT'S GOAL: Improve balance with ambulation. progressing Patient Compliance: Excellent Prognosis: Good Reasons for continuing therapy: S: Bacilio reports he still weaves during gait with head movement but otherwise finds his balance is improving. Posture: Heels 4" apart, steady, upright trunk. Gait: Bacilio still weaves during gait with head motion. He has shorter stride walking backward or when walking forward, eyes shut. Functional Gait Assessment 23% impairment. Balance: Garcia Balance Assessment improved to 11% impairment. Mobility: Independent transfers and bed mobility. A/P Wei Osman is improving gait and balance. He could benefit from continued PT to habituate his vestibular system with gait. If you agree, we'll continue 2x/week through December to goals set. Thank you. SUKUMAR Weems date MTDD
--- NOTE | 2019-01-17 13:07 | PT PLAN OF CARE ---
Physician: SUKUMAR Weems Patient is being seen: 2x/week Therapist: Nilda Barbosa PT Medical Diagnosis: Weakness, Deconditioning Treatment Diagnosis: Same, peripheral Neuropathy, L BPPV Date of Onset: Date of Initial Evaluation: 10/18/18 Date patient was last seen: 01/17/19 Number of treatments: 24 Number of cancellations/No shows: 1 INTERVENTIONS: Strengthening/condition, Neuromuscular Re-ed, Gait Trg/Balance Trg, Home Exercise Program GOALS: One month: Wei ambulates with normal line of progression with head motion. progressing Two months: Wei demonstrates corrective balance reactions on firms surfaces after perturbation. progressing PATIENT'S GOAL: Improve balance with ambulation. progressing Patient Compliance: Excellent Prognosis: Good Reasons for continuing therapy: S: Bacilio reports he has LOB that PT can work with when he turns his head while walking, on uneven ground. There are other causes for gait disturbance, after dialysis, low BP, and we discussed we can't change that. He reports he has many almost falls. Posture: Heels 6" apart, steady, mild trunk flexion. Gait: Functional Gait Assessment 53% impairment. Balance: R LOB with gait with head turn, head up/down. Positive R VOR x1 with R eye skip. Garcia Balance Assessment 44/56, a 21% impairment. Mobility: Independent transfers and bed mobility. No dizziness with rolling L. A/P: Wei Osman still needs to habituate his vestibular system. If you agree, we'll continue through January (except first week - he's OOT) at 2x/week to goals set. Thank you. SUKUMAR Weems date MTDD
== END ==
LOC: PT 11-11 09:53
PROVIDERS: ATTEND Nurse Practitioner Family
DX: R26.89 Other abnormalities of gait and mobility (principal); M62.81 Muscle weakness (generalized)

== ENCOUNTER 2019-02-23 11:29 | Outpatient (RCR) | payer MEDICARE, BC ==
[2017-02-18 08:45] VITALS: BMI 24.5
--- NOTE | 2019-02-14 12:04 | PT PLAN OF CARE ---
Physician: SUKUMAR Weems Patient is being seen: 2x/week Therapist: Nilda Barbosa PT Medical Diagnosis: Weakness, Deconditioning Treatment Diagnosis: Same, peripheral Neuropathy, L BPPV Date of Onset: 09/05/18 Date of Initial Evaluation: 10/18/18 Date patient was last seen: 02/14/19 Number of treatments: 30 Number of cancellations/No shows: 0 INTERVENTIONS: Strengthening/condition, Stretching, Neuromuscular Re-ed, Gait Trg/Balance Trg, Home Exercise Program GOALS: One month: Wei ambulates with normal line of progression with head motion. progressing Two months: Wei demonstrates corrective balance reactions on firms surfaces after perturbation. progressing PATIENT'S GOAL: Improve balance with ambulation. progressing Patient Compliance: Excellent Prognosis: Good Reasons for continuing therapy: S: Bacilio denies falls still has times when he is out-of-sync with movement, such as getting up at night. We worked with a cane today and Bacilio relates he finds them a nuisance. Posture: Heels 6" apart, steady, mild trunk flexion. Strength: LE's 4+/5 to 5-/5. Gait: Bacilio ambulates at a slow cadance, looking at the ground (peripheral neuropathy), even stride. He turns >3 seconds safely. With a single point cane, Bacilio is able to ambulate with head motion without weaving, independent gait with head motion with R foot missteps. Functional Gait Assessment improved to , a 37% impairment. Special Tests: Horizontal field eye tracking with difficulty keeping on target with 3 reps, < 1 Hz. VOR x1 < 2 Hz with inability to hold target after 3 reps. Balance: Garcia Balance Assessment improved to 48/56, a 14% impairment. Mobility: Independent transfers and bed mobility. A/P: Wei Osman is improving gait and balance, still has vestibular- ocular impairment affecting gait and fall risk. If you agree, we'll continue 2x/week through February 23, working to goals set. I will recommend a single point cane, but Bacilio isn't open to it. Thank you. SUKUMAR Weems date AL
--- NOTE | 2019-02-24 13:41 | PT PLAN OF CARE ---
Physician: SUKUMAR Weems Patient is being seen: 2x/week Therapist: Nilda Barbosa PT Medical Diagnosis: Weakness, Deconditioning Treatment Diagnosis: Same, peripheral Neuropathy, L BPPV Date of Onset: Date of Initial Evaluation: 10/18/18 Date patient was last seen: 02/23/19 Number of treatments: 33 Number of cancellations/No shows: 0 INTERVENTIONS: Strengthening/condition, Stretching, Neuromuscular Re-ed, Gait Trg/Balance Trg, Home Exercise Program GOALS: One month: Wei ambulates with normal line of progression with head motion. progressing Two months: Wei demonstrates corrective balance reactions on firms surfaces after perturbation. progressing PATIENT'S GOAL: Improve balance with ambulation. progressing Patient Compliance: Excellent Prognosis: Good Reasons for discontinuing therapy: S: Bacilio reports he still balance perturbations but no falls. Posture: Heels 4" apart, steady, upright trunk. Gait: Functional Gait Assessment a 37% impairment. Bacilio still weaves with head turning, and corrects his balance without assist. Balance: Garcia Balance Assessment 48/56, a 14% impairment. Special Tests: VOR x1 with difficulty keeping focus on target. Mobility: Independent transfers and bed mobility. Rolling L supine to L with dizziness. A/P: Bacilio Osman has improved gait and balance. He still has difficulty with his vestibular ocular reflex and has HEP for that. I'll DC PT to HEP. Thank you. AL
== END 2019-02-23 18:00 | disposition home or self-care (01) ==
LOC: PT 11:29
PROVIDERS: ATTEND Nurse Practitioner Family
DX: R26.89 Other abnormalities of gait and mobility (principal); M62.81 Muscle weakness (generalized)